=== PATIENT | female | born 1955 | race American Indian/Alaskan Native ===

== ENCOUNTER 2018-01-11 13:12 | Inpatient (IN) | payer OTHER ==
[2018-01-11] MEDS ORDERED: NACL 0.9% 1000 ML 1,000 ML IV ONE ×3 (14:17→23:45)
--- NOTE | 2018-01-11 14:38 | XRay Report ---
PORTABLE CHEST INDICATION: Syncope. COMPARISON: None similar at this institution. FINDINGS: Portable, frontal chest radiograph demonstrates normal heart size, slight aortic knob calcifications, EKG leads and osteopenic bones. Diffuse bilateral interstitial densities/infiltrates, at places nodular measuring up to 0.6 cm. Approximately 3.8 cm right suprahilar mass/lymphadenopathy suspected. Few other extrinsic artifacts also noted. CONCLUSION: Diffuse bilateral reticulonodular pulmonary infiltrates, suspicious for a right hilar/suprahilar mass with metastases, as described. Please also correlate clinically and with prior chest imaging, if available. Thank you for the opportunity to participate in this patient's care.
--- NOTE | 2018-01-11 14:41 | Emergency Department Report ---
ED General Adult HPI - General Chief complaint: Syncope Stated complaint: SHORTNESS OF BREATH Time Seen by Provider: 01/11/18 14:22 Source: patient, EMS Mode of arrival: Stretcher Limitations: No Limitations - History of Present Illness Initial comments: Patient is 62 years old female history of HIV followed at [facility]. Patient resented to the ER complaining of generalized weakness, cough or shortness of breath for the last few days. Patient also stated that she had decreased appetite. Patient denied any fever or vomiting. No diarrhea. - Related Data Allergies Allergy/AdvReac Type Severity Reaction Status Date / Time No Known Allergies Allergy Unverified 01/11/18 14:17 ED Review of Systems ROS: Stated complaint: SHORTNESS OF BREATH Other details as noted in HPI Comment: All other systems reviewed and negative Constitutional: denies: chills, fever Respiratory: cough, shortness of breath. denies: SOB with exertion, SOB at rest , wheezing Cardiovascular: palpitations. denies: chest pain, dyspnea on exertion Gastrointestinal: nausea. denies: abdominal pain, vomiting, diarrhea, constipation, hematemesis, melena, hematochezia Genitourinary: denies: urgency, dysuria, frequency, hematuria Neurological: denies: headache, weakness, numbness, paresthesias ED Past Medical Hx - Past Medical History Hx Hypertension: Yes Hx HIV: Yes - Social History Smoking Status: Never Smoker Substance Use Type: None ED Physical Exam - General Limitations: No Limitations General appearance: alert, in no apparent distress - Head Head exam: Present: atraumatic, normocephalic, normal inspection - Eye Eye exam: Present: normal appearance - ENT ENT exam: Present: normal exam, normal orophraynx, mucous membranes moist - Neck Neck exam: Present: normal inspection, full ROM. Absent: tenderness, meningismus - Respiratory Respiratory exam: Present: normal lung sounds bilaterally. Absent: respiratory distress, wheezes, rales, rhonchi, decreased breath sounds, prolonged expiratory - Cardiovascular Cardiovascular Exam: Present: tachycardia - GI/Abdominal GI/Abdominal exam: Present: soft, normal bowel sounds. Absent: distended, tenderness, guarding, rebound, rigid, organomegaly, mass, bruit, pulsatile mass - Extremities Exam Extremities exam: Present: normal inspection, full ROM, normal capillary refill - Back Exam Back exam: Present: normal inspection, full ROM. Absent: tenderness, CVA tenderness (R), CVA tenderness (L), muscle spasm, paraspinal tenderness - Neurological Exam Neurological exam: Present: alert, oriented X3, CN II-XII intact, normal gait - Skin Skin exam: Present: warm, dry, intact ED Course Vital Signs 01/11/18 14:10 Temperature 98.1 F Pulse Rate 104 H Respiratory 18 Rate Blood Pressure 99/74 O2 Sat by Pulse 97 Oximetry ED Medical Decision Making - Lab Data Result diagrams: 01/11/18 14:54 01/11/18 14:54 - Radiology Data Radiology results: report reviewed Referring Physician: ANDERSON MCALLISTER Patient Name: BRYSON BATES Date of : 1955 Sex: Female Report Date: 2018-01-11 Report Status: Finalized Findings [facility] [address] [place] [address] XRay Report Signed Patient: BRYSON BATES MR#: [id number] : 1955 Acct:[id number] Age/Sex: 62 / F ADM Date: 01/11/18 Loc: ED Attending Dr: Ordering Physician: ANDERSON MCALLISTER Date of Service: 01/11/18 Procedure(s): XR chest 1V ap Accession Number(s): [id number] cc: ANDERSON MCALLISTER Fluoro Time In Minutes: PORTABLE CHEST INDICATION: Syncope. COMPARISON: None similar at this institution. FINDINGS: Portable, frontal chest radiograph demonstrates normal heart size, slight aortic knob calcifications, EKG leads and osteopenic bones. Diffuse bilateral interstitial densities/infiltrates, at places nodular measuring up to 0.6 cm. Approximately 3.8 cm right suprahilar mass/lymphadenopathy suspected. Few other extrinsic artifacts also noted. CONCLUSION: Diffuse bilateral reticulonodular pulmonary infiltrates, suspicious for a right hilar/suprahilar mass with metastases, as described. Please also correlate clinically and with prior chest imaging, if available. Thank you for the opportunity to participate in this patient's care. Transcribed By: RS Dictated By: DAVID CHRISTIANSON MD Electronically Authenticated By: DAVID CHRISTIANSON MD Signed Date/Time: 01/11/18 1433 DD/ 1430 TD/TT: 01/11/18 1433 - Medical Decision Making I discussed the patient is Dr. Valdes, he agreed to admit the patient to her service. Critical care attestation.: If time is entered above; I have spent that time in minutes in the direct care of this critically ill patient, excluding procedure time. ED Disposition Clinical Impression: Pneumonia, HIV (human immunodeficiency virus infection) Disposition: OP ADMIT IP TO THIS HOSP Is pt being admited?: Yes Condition: Stable Instructions: Bacterial Pneumonia (ED) Referrals: PRIMARY CARE,MD [Primary Care Provider] - 3-5 Days
[2018-01-11 15:03] LABS: Bacteria,Urine 1+ /HPF (Negative); Bilirubin,Urine NEG (Negative); Blood,Urine SM (Negative); Color,Urine Red (Yellow); Mucus,Urine FEW /HPF; Protein,Urine <15 mg/dL mg/dL (Negative); Urobilinogen,Urine < 2.0 mg/dL (<2.0)
[2018-01-11] MEDS ORDERED: LEVAQUIN 500MG/100ML 500 MG/100 ML BAG IV ONE (15:12)
[2018-01-11] MEDS ORDERED: BACTRIM DS PO ONE (15:12)
[2018-01-11 15:24] LABS: INR 1.05 (0.87-1.13)
[2018-01-11 15:26] LABS: Hemoglobin 12.5 gm/dl (10.1-14.3); Mean Corpuscular HGB Conc 29 % (30-34); Mean Corpuscular Volume 80 fl (79-97); Platelet Count 191 K/mm3 (140-440); Red Blood Count 5.35 M/mm3 (3.65-5.03); Red Cell Distribution Width 17.9 % (13.2-15.2)
[2018-01-11 15:27] LABS: Mean Corpuscular Hemoglobin 23 pg (28-32)
[2018-01-11 15:31] LABS: Creatine Kinase MB 2.2 ng/mL (0.0-4.0)
[2018-01-11 15:32] LABS: Alanine Aminotransferase 9 units/L (7-56); Albumin 2.7 g/dL (3.9-5); BUN/Creatinine Ratio 24; Blood Urea Nitrogen 12 mg/dL (7-17); Calcium 9.9 mg/dL (8.4-10.2); Hemolysis Index 74
--- NOTE | 2018-01-11 15:39 | History and Physical Report ---
History of Present Illness Chief complaint: I feel weak, I been coughing, and i passed out History of present illness: 62 YO Female with HIV, HTN, Malnutrition presents to ED for evaluation. Pt states that she has experienced shortness of breath, nonproductive cough , and decreased oral intake for the past 3 days with persistent symptoms over that same time frame. Pt also acknowledges progressive weakness as well as loss on consciousness today. Pt denies fever, chills, CP, Palpitations, NVD, Trauma, BRBPR, Seizures, Vertigo, recent ill contacts, skin rash, vision changes. Pt seen and evaluated in ED and found to have Bilateral Pneumonia complicated by sepsis. Pt admitted to medical floor. Past History Past Medical History: HIV/AIDS, hypertension, other (malnutrition) Past Surgical History: No surgical history, Other (reviewed) Social history: single Medications and Allergies Allergies Allergy/AdvReac Type Severity Reaction Status Date / Time No Known Allergies Allergy Unverified 01/11/18 14:17 Home Medications Medication Instructions Recorded Confirmed Last Taken Type Aspirin [Aspirin EC] 81 mg PO DAILY 01/11/18 01/11/18 Unknown History Dolutegravir Sodium [Tivicay] 50 mg PO DAILY 01/11/18 01/11/18 Unknown History Emtricitabine/Tenofov Alafenam 1 each PO DAILY 01/11/18 01/11/18 Unknown History [Descovy 200-25 mg Tablet] Ergocalciferol [Vitamin D2] 1 cap PO QWEEK 01/11/18 01/11/18 Unknown History Folic Acid [Folvite] 1 mg PO QDAY 01/11/18 01/11/18 Unknown History Rosuvastatin Calcium [Crestor] 40 mg PO QHS 01/11/18 01/11/18 Unknown History Sulfamethoxazole/Trimethoprim 1 each PO DAILY 01/11/18 01/11/18 Unknown History [Bactrim DS TAB] amLODIPine [Norvasc] 10 mg PO DAILY 01/11/18 01/11/18 Unknown History Active Meds: Active Medications Levofloxacin/Dextrose (Levaquin 500mg/100ml) 500 mg in 100 mls @ 100 mls/hr IV ONCE ONE Stop: 01/11/18 16:11 Last Admin: 01/11/18 15:35 Dose: 100 mls/hr Review of Systems Constitutional: weight loss, no weight gain, no fever, no chills Ears, nose, mouth and throat: no ear pain, no ear discharge, no tinnitis, no decreased hearing, no nose pain Cardiovascular: shortness of breath, no chest pain, no orthopnea, no palpitations Respiratory: cough, no cough with sputum, no excessive sputum, no hemoptysis Gastrointestinal: no nausea, no vomiting, no diarrhea, no constipation Genitourinary Female: no pelvic pain, no flank pain, no menorrhagia, no dysuria , no urinary frequency, no urgency Rectal: no pain, no incontinence, no bleeding Musculoskeletal: no neck stiffness, no neck pain, no shooting arm pain, no arm numbness/tingling, no low back pain, no shooting leg pain Integumentary: no rash, no pruritis, no redness, no sores, no wounds Neurological: no paralysis, no weakness, no parathesias, no numbness, no tingling, no seizures, no syncope Psychiatric: no anxiety, no memory loss, no change in sleep habits, no sleep disturbances, no insomnia, no hypersomnia, no change in appetite Endocrine: no cold intolerance, no heat intolerance, no polyphagia, no excessive thirst, no polydipsia, no polyuria, no nocturia, no excessive sweating Hematologic/Lymphatic: no easy bruising, no easy bleeding, no lymphadenopathy, no lymphedema Allergic/Immunologic: no urticaria, no allergic rhinitis, no wheezing, no persistent infections, no anaphylaxis, no angioedema Exam - Constitutional Vitals: Temp Pulse Resp BP Pulse Ox 98.1 F 104 H 18 99/74 97 01/11/18 14:10 01/11/18 14:10 01/11/18 14:10 01/11/18 14:10 01/11/18 14:10 General appearance: Present: mild distress, cachectic - EENT Eyes: Present: PERRL ENT: hearing intact, clear oral mucosa - Neck Neck: Present: supple, normal ROM - Respiratory Respiratory effort: normal Respiratory: bilateral: diminished, rhonchi - Cardiovascular Heart Sounds: Present: S1 & S2. Absent: rub, click - Extremities Extremities: pulses symmetrical, No edema Peripheral Pulses: within normal limits - Abdominal General gastrointestinal: Present: soft, non-tender, non-distended, normal bowel sounds Female genitourinary: Present: normal - Integumentary Integumentary: Present: clear, warm, dry - Musculoskeletal Musculoskeletal: generalized weakness - Psychiatric Psychiatric: appropriate mood/affect, intact judgment & insight - Neurologic Neurologic: CNII-XII intact, moves all extremities Results - Labs CBC & Chem 7: 01/11/18 14:54 01/11/18 14:54 Labs: Abnormal lab results 01/11/18 01/11/18 Range/Units 14:54 14:54 WBC 14.2 H (4.5-11.0) K/mm3 RBC 5.35 H (3.65-5.03) M/mm3 Hct 43.0 H (30.3-42.9) % MCH 23 L (28-32) pg MCHC 29 L (30-34) % RDW 17.9 H (13.2-15.2) % Carbon Dioxide 20 L (22-30) mmol/L Creatinine 0.5 L (0.7-1.2) mg/dL Magnesium 2.60 H (1.7-2.3) mg/dL CK-MB (CK-2) Rel Index 4.3 H (0-4) Albumin 2.7 L (3.9-5) g/dL Assessment and Plan - Patient Problems (1) Sepsis Current Visit: Yes Status: Acute Qualifiers: Sepsis type: sepsis due to unspecified organism Qualified Code(s): A41.9 - Sepsis, unspecified organism Plan to address problem: IV antiboitics, IVF resuscitation, monitor uop q shift, serial lactic acid, monitor uop q shift, Chest X ray (2) Malnutrition Current Visit: Yes Status: Acute Qualifiers: Malnutrition type: protein-calorie malnutrition Protein-calorie malnutrition severity: severe Qualified Code(s): E43 - Unspecified severe protein-calorie malnutrition Plan to address problem: encourage oral intake, (3) Acidosis Current Visit: Yes Status: Acute Plan to address problem: IVF resuscitation therapy, serial bmp, repeat lactic acid level (4) HIV (human immunodeficiency virus infection) Current Visit: Yes Status: Acute Plan to address problem: continue antiretroviral therapy, continue bactrim for PCP prophylaxis, outpatient ID f/u. (5) Pneumonia Current Visit: Yes Status: Acute Qualifiers: Laterality: bilateral Plan to address problem: IV antibiotics, IV steroid therapy, Chest x ray, monitor uop q shift, blood cultures (6) DVT prophylaxis Current Visit: Yes Status: Acute Plan to address problem: scd to BLE
[2018-01-11] MEDS ORDERED: PROVENTIL IH PRN (15:40)
[2018-01-11 16:08] LABS: Basophils % (Manual) 0 % (0.0-1.8); Total Cells Counted 100
[2018-01-11 16:09] LABS: Platelet Estimate Consistent w Auto
[2018-01-11 16:10] LABS: Anisocytosis 1+; Poikilocytosis 1+
[2018-01-11] MEDS ORDERED: ROCEPHIN/NS 1 GM/50 ML 1 GM/50 ML BAG IV SCH (17:00)
[2018-01-11] MEDS ORDERED: NACL 0.9% 1000 ML IV ONE (17:37)
[2018-01-11] MEDS: cefTRIAXone 1 GM in NACL 0.9% 20 ML IV SCH (17:42)
--- NOTE | 2018-01-11 18:07 | Cat Scan Report ---
FINAL REPORT EXAM: CT HEAD/BRAIN WO CON HISTORY: syncope TECHNIQUE: Standard unenhanced CT of the head at 5.0 millimeter axial increments. PRIORS: None. FINDINGS: The ventricular system is normal in size and configuration. There is no evidence for parenchymal volume loss. There is no evidence for mass lesion, mass effect, midline shift, acute intracranial hemorrhage, or acute ischemia/ infarction. No evidence for acute skull fracture is seen. No abnormality in the overlying scalp soft tissues is seen. Visualized paranasal sinuses are clear. IMPRESSION: Negative CT of the head. No acute intracranial process noted.
[2018-01-11] MEDS: ZITHROMAX 500 MG in NACL 0.9% 250ML 250 ML IV SCH (20:24)
[2018-01-11] MEDS: TYLENOL PO PRN (20:25)
[2018-01-11] MEDS ORDERED: NACL ONE (21:35)
[2018-01-11] MEDS ORDERED: NON-FORMULARY (Rosuvastatin Calcium [Crestor] 40 MG) PO SCH (22:00)
[2018-01-11] MEDS: SODIUM CHLORIDE FLUSH SYRINGE 10 ML IV SCH (22:21)
--- NOTE | 2018-01-11 23:35 | Cat Scan Report ---
FINAL REPORT PROCEDURE: CT ANGIO CHEST TECHNIQUE: Computerized axial tomographic angiography of the chest and pulmonary arteries was performed after the IV injection of iodinated nonionic contrast. The image data was postprocessed using maximum intensity projection (MIP) and 2-dimensional multiplanar reformatted (MPR) techniques. The examination is specifically tailored to the evaluation of the pulmonary arteries per clinical request. HISTORY: Short of breath 786.09, chest pain 786.50, dypsnea COMPARISON: No prior studies are available for comparison. FINDINGS: Heart and pericardium: Normal. Thoracic aorta: There is no thoracic aortic aneurysm or dissection.. Pulmonary vasculature: Normal. No pulmonary emboli. Lymph nodes: There are enlarged lymph nodes or masses in the subcarinal mediastinal space measuring up to 5 centimeters in diameter. There are bilateral enlarged hilar lymph nodes or masses measuring up to 4.5 centimeters in the right hilum.. Lungs: There is advanced COPD. There are innumerable spiculated pulmonary nodules and masses bilaterally highly suspicious for metastatic malignancy. Largest mass is seen in the right upper lung measuring 4 centimeters in diameter. There are so seated reticular densities which could be pulmonary edema, interstitial pneumonitis or lymphangitic carcinomatosis.. Pleural space: There is no pleural effusion or pneumothorax.. Musculoskeletal structures: There are heterogeneous densities in the thoracic and lumbar spine consistent with metastatic bone disease. There are destructive changes of left rib number 2 due to bony metastasis.. Upper abdominal structures: No significant abnormality. IMPRESSION: There is metastatic pulmonary malignancy and bone disease. There is pathological mediastinal and hilar lymphadenopathy. There is no thoracic aortic aneurysm or dissection. There is no pulmonary embolism..
[2018-01-12] MEDS: TYLENOL PO PRN ×3 (00:51→19:01)
[2018-01-12] MEDS: NACL 0.9% 1000 ML 1,000 ML IV SCH ×2 (01:59→19:50)
[2018-01-12] MEDS: cefTRIAXone 1 GM in NACL 0.9% 20 ML IV SCH (09:59)
[2018-01-12] MEDS ORDERED: TIVICAY (NF) PO SCH (10:00)
[2018-01-12] MEDS: ZITHROMAX 500 MG in NACL 0.9% 250ML 250 ML IV SCH (10:00)
[2018-01-12] MEDS ORDERED: ROCEPHIN/NS 1 GM/50 ML 1 GM/50 ML BAG IV SCH (10:00)
[2018-01-12] MEDS ORDERED: NON-FORMULARY (Dolutegravir Sodium [Tivicay] 50 MG) PO SCH (10:00)
[2018-01-12] MEDS: BACTRIM DS PO SCH (10:07)
[2018-01-12] MEDS: NON-FORMULARY (Emtricitabine/Tenofov Alafenam [Descovy 200-25 Mg Tablet] 1 EACH) PO SCH (10:07)
[2018-01-12] MEDS: FOLVITE PO SCH (10:08)
[2018-01-12] MEDS: HALFPRIN EC PO SCH (10:08)
[2018-01-12] MEDS: SODIUM CHLORIDE FLUSH SYRINGE 10 ML IV SCH ×2 (10:09→21:51)
[2018-01-12] MEDS: NORVASC PO SCH (10:09)
[2018-01-12] MEDS: TIVICAY (NF) PO SCH (10:10)
--- NOTE | 2018-01-12 18:21 | Progress Note ---
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, O2 of care, ID evaluation --Sepsis; secondary to pneumonia, community-acquired Continue IV antibiotics, follow cultures, pulmonary consult --Lactic acidosis; secondary to sepsis, improved --DVT prophylaxis; Lovenox Poor prognosis Family not available we will Check with family for more information and treatment plan Closely monitor the patient and adjust management as needed Disposition; follow-up pulmonary, ID, oncology evaluation and recommendations History Interval history: 62-year-old female patient with HIV hypertension and severe malnutrition and cachexia was admitted through emergency room with syncope and cough, CT chest consistent with metastatic lung cancer involving the bones, no PE Patient seen and examined Patient looks critically, cachectic emaciated Minimally communicative, in mild distress Vital signs reviewed Hospitalist Physical - Constitutional Vitals: Temp Pulse Resp BP Pulse Ox 98.1 F 96 H 16 109/82 93 01/12/18 08:24 01/12/18 08:24 01/12/18 08:24 01/12/18 08:24 01/12/18 08:24 General appearance: Present: mild distress, cachectic, disheveled - EENT Eyes: Present: PERRL, EOM intact - Neck Neck: Present: supple, normal ROM - Respiratory Respiratory effort: labored Respiratory: bilateral: diminished, rhonchi, negative: rales, wheezing - Cardiovascular Rhythm: regular Heart Sounds: Present: S1 & S2 - Extremities Extremities: no ischemia, No edema - Abdominal General gastrointestinal: soft, non-tender, non-distended, normal bowel sounds - Integumentary Integumentary: Present: clear, warm - Psychiatric Psychiatric: appropriate mood/affect, agitated, other (minimally communicate) - Neurologic Neurologic: moves all extremities Results - Labs CBC & Chem 7: 01/11/18 14:54 01/11/18 14:54 Labs: Laboratory Last Values WBC 14.2 K/mm3 (4.5-11.0) H 01/11/18 14:54 RBC 5.35 M/mm3 (3.65-5.03) H 01/11/18 14:54 Hgb 12.5 gm/dl (10.1-14.3) 01/11/18 14:54 Hct 43.0 % (30.3-42.9) H 01/11/18 14:54 MCV 80 fl (79-97) 01/11/18 14:54 MCH 23 pg (28-32) L 01/11/18 14:54 MCHC 29 % (30-34) L 01/11/18 14:54 RDW 17.9 % (13.2-15.2) H 01/11/18 14:54 Plt Count 191 K/mm3 (140-440) 01/11/18 14:54 Lymph % (Auto) [employer] 01/11/18 14:54 [place] % (Auto) [employer] 01/11/18 14:54 Eos % (Auto) [employer] 01/11/18 14:54 Baso % (Auto) [employer] 01/11/18 14:54 Lymph # [employer] 01/11/18 14:54 [place] # [employer] 01/11/18 14:54 Eos # [employer] 01/11/18 14:54 Baso # [employer] 01/11/18 14:54 Add Manual Diff Complete 01/11/18 14:54 Total Counted 100 01/11/18 14:54 Seg Neutrophils % [employer] 01/11/18 14:54 Seg Neuts % (Manual) 74.0 % (40.0-70.0) H 01/11/18 14:54 Band Neutrophils % 0 % 01/11/18 14:54 Lymphocytes % (Manual) 8.0 % (13.4-35.0) L 01/11/18 14:54 Reactive Lymphs % (Man) 0 % 01/11/18 14:54 Monocytes % (Manual) 5.0 % (0.0-7.3) 01/11/18 14:54 Eosinophils % (Manual) 13.0 % (0.0-4.3) H 01/11/18 14:54 Basophils % (Manual) 0 % (0.0-1.8) 01/11/18 14:54 Metamyelocytes % 0 % 01/11/18 14:54 Myelocytes % 0 % 01/11/18 14:54 Promyelocytes % 0 % 01/11/18 14:54 Blast Cells % 0 % 01/11/18 14:54 Nucleated RBC % Not Reportable 01/11/18 14:54 Seg Neutrophils # [employer] 01/11/18 14:54 Seg Neutrophils # Man 10.5 K/mm3 (1.8-7.7) H 01/11/18 14:54 Band Neutrophils # 0.0 K/mm3 01/11/18 14:54 Lymphocytes # (Manual) 1.1 K/mm3 (1.2-5.4) L 01/11/18 14:54 Abs React Lymphs (Man) 0.0 K/mm3 01/11/18 14:54 Monocytes # (Manual) 0.7 K/mm3 (0.0-0.8) 01/11/18 14:54 Eosinophils # (Manual) 1.8 K/mm3 (0.0-0.4) H 01/11/18 14:54 Basophils # (Manual) 0.0 K/mm3 (0.0-0.1) 01/11/18 14:54 Metamyelocytes # 0.0 K/mm3 01/11/18 14:54 Myelocytes # 0.0 K/mm3 01/11/18 14:54 Promyelocytes # 0.0 K/mm3 01/11/18 14:54 Blast Cells # 0.0 K/mm3 01/11/18 14:54 WBC Morphology Not Reportable 01/11/18 14:54 Hypersegmented Neuts Not Reportable 01/11/18 14:54 Hyposegmented Neuts Not Reportable 01/11/18 14:54 Hypogranular Neuts Not Reportable 01/11/18 14:54 Smudge Cells Not Reportable 01/11/18 14:54 Toxic Granulation Not Reportable 01/11/18 14:54 Toxic Vacuolation Not Reportable 01/11/18 14:54 Dohle Bodies Not Reportable 01/11/18 14:54 Pelger-Huet Anomaly Not Reportable 01/11/18 14:54 Afshin Rods Not Reportable 01/11/18 14:54 Platelet Estimate Consistent w auto 01/11/18 14:54 Clumped Platelets Not Reportable 01/11/18 14:54 Plt Clumps, EDTA Not Reportable 01/11/18 14:54 Large Platelets Not Reportable 01/11/18 14:54 Giant Platelets Not Reportable 01/11/18 14:54 Platelet Satelliting Not Reportable 01/11/18 14:54 Plt Morphology Comment Not Reportable 01/11/18 14:54 RBC Morphology Not Reportable 01/11/18 14:54 Dimorphic RBCs Not Reportable 01/11/18 14:54 Polychromasia Not Reportable 01/11/18 14:54 Hypochromasia Not Reportable 01/11/18 14:54 Poikilocytosis 1+ 01/11/18 14:54 Anisocytosis 1+ 01/11/18 14:54 Microcytosis Not Reportable 01/11/18 14:54 Macrocytosis Not Reportable 01/11/18 14:54 Spherocytes Not Reportable 01/11/18 14:54 Pappenheimer Bodies Not Reportable 01/11/18 14:54 Sickle Cells Not Reportable 01/11/18 14:54 Target Cells Not Reportable 01/11/18 14:54 Tear Drop Cells Not Reportable 01/11/18 14:54 Ovalocytes Not Reportable 01/11/18 14:54 Helmet Cells Not Reportable 01/11/18 14:54 [place] Bodies Not Reportable 01/11/18 14:54 [place] Rings Not Reportable 01/11/18 14:54 Garber Cells Not Reportable 01/11/18 14:54 Bite Cells Not Reportable 01/11/18 14:54 Crenated Cell Not Reportable 01/11/18 14:54 Elliptocytes Not Reportable 01/11/18 14:54 Acanthocytes (Spur) Not Reportable 01/11/18 14:54 Rouleaux Not Reportable 01/11/18 14:54 Hemoglobin C Crystals Not Reportable 01/11/18 14:54 Schistocytes Not Reportable 01/11/18 14:54 Malaria parasites Not Reportable 01/11/18 14:54 Edil Bodies Not Reportable 01/11/18 14:54 Hem Pathologist Commnt No 01/11/18 14:54 PT 14.2 Sec. (12.2-14.9) 01/11/18 14:54 INR 1.05 (0.87-1.13) 01/11/18 14:54 D-Dimer > 39965 ng/mlDDU (0-234) H 01/11/18 14:54 Sodium 141 mmol/L (137-145) 01/11/18 14:54 Potassium 4.3 mmol/L (3.6-5.0) 01/11/18 14:54 Chloride 104.8 mmol/L (98-107) 01/11/18 14:54 Carbon Dioxide 20 mmol/L (22-30) L 01/11/18 14:54 Anion Gap 21 mmol/L 01/11/18 14:54 BUN 12 mg/dL (7-17) 01/11/18 14:54 Creatinine 0.5 mg/dL (0.7-1.2) L 01/11/18 14:54 Estimated GFR > 60 ml/min 01/11/18 14:54 BUN/Creatinine Ratio 24 % 01/11/18 14:54 Glucose 75 mg/dL (65-100) 01/11/18 14:54 Lactic Acid 1.50 mmol/L (0.7-2.0) 01/12/18 03:20 Calcium 9.9 mg/dL (8.4-10.2) 01/11/18 14:54 Magnesium 2.60 mg/dL (1.7-2.3) H 01/11/18 14:54 Total Bilirubin 0.30 mg/dL (0.1-1.2) 01/11/18 14:54 AST 19 units/L (5-40) 01/11/18 14:54 ALT 9 units/L (7-56) 01/11/18 14:54 Alkaline Phosphatase 93 units/L (35-129) 01/11/18 14:54 Total Creatine Kinase 51 units/L (30-135) 01/11/18 14:54 CK-MB (CK-2) 2.2 ng/mL (0.0-4.0) 01/11/18 14:54 CK-MB (CK-2) Rel Index 4.3 (0-4) H 01/11/18 14:54 Troponin T 0.021 ng/mL (0.00-0.029) 01/11/18 14:54 NT-Pro-B Natriuret Pep 775.8 pg/mL (0-900) 01/11/18 14:55 Total Protein 7.9 g/dL (6.3-8.2) 01/11/18 14:54 Albumin 2.7 g/dL (3.9-5) L 01/11/18 14:54 Albumin/Globulin Ratio 0.5 % 01/11/18 14:54 Urine Color Red (Yellow) 01/11/18 13:50 Urine Turbidity Clear (Clear) 01/11/18 13:50 Urine pH 6.0 (5.0-7.0) 01/11/18 13:50 Ur Specific [place] 1.003 (1.003-1.030) 01/11/18 13:50 Urine Protein <15 mg/dl mg/dL (Negative) 01/11/18 13:50 Urine Glucose (UA) Neg mg/dL (Negative) 01/11/18 13:50 Urine Ketones Neg mg/dL (Negative) 01/11/18 13:50 Urine Blood Sm (Negative) 01/11/18 13:50 Urine Nitrite Neg (Negative) 01/11/18 13:50 Urine Bilirubin Neg (Negative) 01/11/18 13:50 Urine Urobilinogen < 2.0 mg/dL (<2.0) 01/11/18 13:50 Ur Leukocyte Esterase Sm (Negative) 01/11/18 13:50 Urine WBC (Auto) 3.0 /HPF (0.0-6.0) 01/11/18 13:50 Urine RBC (Auto) 1.0 /HPF (0.0-6.0) 01/11/18 13:50 U Epithel Cells (Auto) 1.0 /HPF (0-13.0) 01/11/18 13:50 Urine Bacteria (Auto) 1+ /HPF (Negative) 01/11/18 13:50 Urine Mucus Few /HPF 01/11/18 13:50
--- NOTE | 2018-01-12 19:49 | Consultation ---
History of Present Illness Consult date: 01/12/18 Requesting physician: PASHA FROST Reason for consult: abnormal CXR/CT History of present illness: Admitting H and P 62 YO Female with HIV, HTN, Malnutrition presents to ED for evaluation. Pt states that she has experienced shortness of breath, nonproductive cough , and decreased oral intake for the past 3 days with persistent symptoms over that same time frame. Pt also acknowledges progressive weakness as well as loss on consciousness today. Pt denies fever, chills, CP, Palpitations, NVD, Trauma, BRBPR, Seizures, Vertigo, recent ill contacts, skin rash, vision changes. Pt seen and evaluated in ED and found to have Bilateral Pneumonia complicated by sepsis. 62 year old woman with HIV presented with dry cough, weight loss and syncopal episode Review of the CXR shows spiculated nodular densities. CT chest, images reviewed, multiple parenchymal densities (some cavitation )in the lungs She states she smokes cigarettes, does crack and lives on and off on the streets. Audible wheezing. Patient was seen and examined. Vitals, labs, medications, chart and imaging were reviewed. Past History Past Medical History: HIV/AIDS, hypertension, other (malnutrition) Past Surgical History: No surgical history, Other (reviewed) Social history: single Medications and Allergies Allergies Allergy/AdvReac Type Severity Reaction Status Date / Time No Known Allergies Allergy Unverified 01/11/18 14:17 Home Medications Medication Instructions Recorded Confirmed Last Taken Type Aspirin [Aspirin EC] 81 mg PO DAILY 01/11/18 01/11/18 Unknown History Dolutegravir Sodium [Tivicay] 50 mg PO DAILY 01/11/18 01/11/18 Unknown History Emtricitabine/Tenofov Alafenam 1 each PO DAILY 01/11/18 01/11/18 Unknown History [Descovy 200-25 mg Tablet] Ergocalciferol [Vitamin D2] 1 cap PO QWEEK 01/11/18 01/11/18 Unknown History Folic Acid [Folvite] 1 mg PO QDAY 01/11/18 01/11/18 Unknown History Rosuvastatin Calcium [Crestor] 40 mg PO QHS 01/11/18 01/11/18 Unknown History Sulfamethoxazole/Trimethoprim 1 each PO DAILY 01/11/18 01/11/18 Unknown History [Bactrim DS TAB] amLODIPine [Norvasc] 10 mg PO DAILY 01/11/18 01/11/18 Unknown History Active Meds: Active Medications Acetaminophen (Tylenol) 650 mg PO Q4H PRN PRN Reason: Pain MILD(1-3)/Fever >100.5/EVE Last Admin: 01/12/18 19:01 Dose: 650 mg Albuterol (Proventil) 2.5 mg IH Q4HRT PRN PRN Reason: Shortness Of Breath Amlodipine Besylate (Norvasc) 10 mg PO DAILY [facility] Last Admin: 01/12/18 10:09 Dose: 10 mg Aspirin (Halfprin Ec) 81 mg PO DAILY [facility] Last Admin: 01/12/18 10:08 Dose: 81 mg Atorvastatin Calcium (Lipitor) 40 mg PO QHS [facility] Last Admin: 01/11/18 22:21 Dose: 40 mg Azithromycin (Zithromax) 500 mg PO QDAY [facility] Ergocalciferol (Vitamin D2) 50,000 unit PO Mo [facility] Folic Acid (Folvite) 1 mg PO QDAY [facility] Last Admin: 01/12/18 10:08 Dose: 1 mg Ceftriaxone Sodium 1 gm/ (Sodium Chloride) 20 mls @ 2 mls/min IV Q24HR [facility] Last Admin: 01/12/18 09:59 Dose: 2 mls/min Sodium Chloride (Nacl 0.9% 1000 Ml) 1,000 mls @ 125 mls/hr IV DIRECT [facility] Last Infusion: 01/12/18 10:01 Dose: Infused Methylprednisolone Sodium Succinate (Solu-Medrol) 20 mg IV Q24HR [facility] Last Admin: 01/12/18 10:09 Dose: 20 mg Miscellaneous Medication (Emtricitabine/Tenofov Alafenam [Descovy 200-25 Mg Tablet]) 1 each PO DAILY [facility] Last Admin: 01/12/18 10:07 Dose: 1 each Ondansetron HCl (Zofran) 4 mg IV Q8H PRN PRN Reason: Nausea And Vomiting Sodium Chloride (Sodium Chloride Flush Syringe 10 Ml) 10 ml IV BID [facility] Last Admin: 01/12/18 10:09 Dose: 10 ml Sodium Chloride (Sodium Chloride Flush Syringe 10 Ml) 10 ml IV PRN PRN PRN Reason: LINE FLUSH Trimethoprim/Sulfamethoxazole (Bactrim Ds) 1 each PO DAILY [facility] Last Admin: 01/12/18 10:07 Dose: 1 each Physical Examination Vital signs: Vital Signs Pulse Resp BP 104 H 28 H 105/74 01/11/18 14:07 01/11/18 14:07 01/11/18 14:07 General appearance: Present: mild distress, cachectic, disheveled - EENT Eyes: Present: PERRL, EOM intact - Neck Neck: Present: supple, normal ROM Multiple supraclavicular/cervical lymphadenopathy - Respiratory Respiratory effort: labored Respiratory: bilateral: diminished, rhonchi, has expiratory wheezing - Cardiovascular Rhythm: regular Heart Sounds: Present: S1 & S2 - Extremities Extremities: no ischemia, No edema - Abdominal General gastrointestinal: soft, non-tender, non-distended, normal bowel sounds - Integumentary Integumentary: Present: clear, warm - Psychiatric Psychiatric: appropriate mood/affect, agitated, other (minimally communicate) - Neurologic Neurologic: moves all extremities Results - Laboratory Findings CBC and BMP: 01/11/18 14:54 01/11/18 14:54 PT/INR, D-dimer PT 14.2 Sec. (12.2-14.9) 01/11/18 14:54 INR 1.05 (0.87-1.13) 01/11/18 14:54 D-Dimer > 66057 ng/mlDDU (0-234) H 01/11/18 14:54 Abnormal lab findings: Abnormal Labs 01/11/18 01/11/18 01/11/18 14:54 14:54 14:54 WBC 14.2 H RBC 5.35 H Hct 43.0 H MCH 23 L MCHC 29 L RDW 17.9 H Seg Neuts % (Manual) 74.0 H Lymphocytes % (Manual) 8.0 L Eosinophils % (Manual) 13.0 H Seg Neutrophils # Man 10.5 H Lymphocytes # (Manual) 1.1 L Eosinophils # (Manual) 1.8 H D-Dimer > 29934 H Carbon Dioxide 20 L Creatinine 0.5 L Lactic Acid Magnesium 2.60 H CK-MB (CK-2) Rel Index 4.3 H Albumin 2.7 L 01/11/18 01/11/18 01/11/18 15:19 20:49 21:42 WBC RBC Hct MCH MCHC RDW Seg Neuts % (Manual) Lymphocytes % (Manual) Eosinophils % (Manual) Seg Neutrophils # Man Lymphocytes # (Manual) Eosinophils # (Manual) D-Dimer Carbon Dioxide Creatinine Lactic Acid 3.20 H* 3.70 H* 4.00 H* Magnesium CK-MB (CK-2) Rel Index Albumin Assessment and Plan Multiple pulmonary massess suspicious for metastatic malignant disease HIV 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
[2018-01-12] MEDS: DUONEB *Not for PRN Use IH SCH (22:11)
[2018-01-13] MEDS: DUONEB *Not for PRN Use IH SCH ×4 (03:28→19:41)
[2018-01-13] MEDS: SODIUM CHLORIDE FLUSH SYRINGE 10 ML IV PRN ×2 (03:49→06:17)
[2018-01-13] MEDS: ZOFRAN IV PRN (03:49)
[2018-01-13] MEDS: NACL 0.9% 1000 ML 1,000 ML IV SCH ×2 (03:54→11:45)
--- NOTE | 2018-01-13 08:08 | Consultation ---
History of Present Illness - Reason for Consult Consult date: 01/13/18 HIV/AIDS Requesting physician: PASHA FROST - History of Present Illness HPI: 62 yo F PMH HIV/AIDS, diagnosed in December 2017 at [facility], on HAART ( Tivicay and descovy), unknown CD4 and HIV-VL, HTN, malnutrition, tobacco and crack/cocaine use, lives off/on streets, who presented to the ER on 01/10/18 c/o shortness of breath, nonproductive cough, decreased oral intake, weight loss, progressive weakness, as well as syncope with loss of consciousness the day of presentation to ER. History is obtained from EMR and d/w pt who is a poor historian. She denies fever, chills, CP, N/V/D, dysuria, skin lesions. In the ER temperature 98.1, pulse 104, respiratory rate 20, saturation 97%, blood pressure 105/74. White blood cell count was 14.2, H&H 12.5 and 43.0, platelets 191. BUN and creatinine 12 and 0.5. Lactic acid 3.2. Urinalysis was negative. Head CT was negative for acute findings. Chest x-ray showed diffuse bilateral reticulonodular pulmonary infiltrates, suspicious for a right hilar and suprahilar mass with metastases. CT of the chest showed pulmonary malignancy with bone disease and pathological mediastinal and hilar lymphadenopathy. Patient was started on azithromycin, ceftriaxone and Bactrim on 01/11/18. She also received a dose of Levofloxacin on 01/11/18. She is on Solu- Medrol since 01/11/18. Infectious diseases service is consulted for further antibiotic management. Microbiology: Blood cultures: 01/11 NGTD Current Antimicrobials: Ceftriaxone 01/11- Azithromycin 01/11- Bactrim 01/11- HAART: Descovy and Tivicay Previous Antimicrobials: Levaquin x1 01/11 Other meds: Solumedrol 01/11- Past History Past Medical History: HIV/AIDS, hypertension, other (malnutrition) Past Surgical History: No surgical history, Other (reviewed) Social history: single Medications and Allergies Allergies Allergy/AdvReac Type Severity Reaction Status Date / Time No Known Allergies Allergy Unverified 01/11/18 14:17 Home Medications Medication Instructions Recorded Confirmed Last Taken Type Aspirin [Aspirin EC] 81 mg PO DAILY 01/11/18 01/11/18 Unknown History Dolutegravir Sodium [Tivicay] 50 mg PO DAILY 01/11/18 01/11/18 Unknown History Emtricitabine/Tenofov Alafenam 1 each PO DAILY 01/11/18 01/11/18 Unknown History [Descovy 200-25 mg Tablet] Ergocalciferol [Vitamin D2] 1 cap PO QWEEK 01/11/18 01/11/18 Unknown History Folic Acid [Folvite] 1 mg PO QDAY 01/11/18 01/11/18 Unknown History Rosuvastatin Calcium [Crestor] 40 mg PO QHS 01/11/18 01/11/18 Unknown History Sulfamethoxazole/Trimethoprim 1 each PO DAILY 01/11/18 01/11/18 Unknown History [Bactrim DS TAB] amLODIPine [Norvasc] 10 mg PO DAILY 01/11/18 01/11/18 Unknown History Active Meds: Active Medications Acetaminophen (Tylenol) 650 mg PO Q4H PRN PRN Reason: Pain MILD(1-3)/Fever >100.5/VEE Last Admin: 01/12/18 19:01 Dose: 650 mg Albuterol (Proventil) 2.5 mg IH Q4HRT PRN PRN Reason: Shortness Of Breath Albuterol/Ipratropium (Duoneb *Not For Prn Use*) 1 ampul IH Q6HRT [facility] Last Admin: 01/13/18 03:28 Dose: 1 ampul Amlodipine Besylate (Norvasc) 10 mg PO DAILY [facility] Last Admin: 01/12/18 10:09 Dose: 10 mg Aspirin (Halfprin Ec) 81 mg PO DAILY [facility] Last Admin: 01/12/18 10:08 Dose: 81 mg Atorvastatin Calcium (Lipitor) 40 mg PO QHS [facility] Last Admin: 01/12/18 21:49 Dose: 40 mg Azithromycin (Zithromax) 500 mg PO QDAY [facility] Ergocalciferol (Vitamin D2) 50,000 unit PO Mo [facility] Folic Acid (Folvite) 1 mg PO QDAY [facility] Last Admin: 01/12/18 10:08 Dose: 1 mg Ceftriaxone Sodium 1 gm/ (Sodium Chloride) 20 mls @ 2 mls/min IV Q24HR [facility] Last Admin: 01/12/18 09:59 Dose: 2 mls/min Sodium Chloride (Nacl 0.9% 1000 Ml) 1,000 mls @ 125 mls/hr IV DIRECT [facility] Last Admin: 01/13/18 03:54 Dose: 125 mls/hr Methylprednisolone Sodium Succinate (Solu-Medrol) 40 mg IV Q8HR [facility] Last Admin: 01/13/18 06:17 Dose: 40 mg Miscellaneous Medication (Emtricitabine/Tenofov Alafenam [Descovy 200-25 Mg Tablet]) 1 each PO DAILY [facility] Last Admin: 01/12/18 10:07 Dose: 1 each Ondansetron HCl (Zofran) 4 mg IV Q8H PRN PRN Reason: Nausea And Vomiting Last Admin: 01/13/18 03:49 Dose: 4 mg Sodium Chloride (Sodium Chloride Flush Syringe 10 Ml) 10 ml IV BID [facility] Last Admin: 01/12/18 21:51 Dose: 10 ml Sodium Chloride (Sodium Chloride Flush Syringe 10 Ml) 10 ml IV PRN PRN PRN Reason: LINE FLUSH Last Admin: 01/13/18 06:17 Dose: 10 ml Trimethoprim/Sulfamethoxazole (Bactrim Ds) 1 each PO DAILY [facility] Last Admin: 01/12/18 10:07 Dose: 1 each Review of Systems Constitutional: other (As per HPI.) Physical Examination - Physical Exam Narrative exam: General appearance: Alert in NAD, conversant, cachectic. Eyes: anicteric sclerae, moist conjunctivae; PERRLA, EOMI. HENT: Atraumatic; oropharynx clear, with moist mucous membranes and no mucosal ulcerations/no oral thrush; normal hard and soft palate. Normal external ears. Neck: Trachea midline; supple, no thyromegaly. Lungs: CTA, with normal respiratory effort and no intercostal retractions CV: S1,S2. RRR. Abdomen: +BS. Soft. NT/ND. Extremities: No c/c/e. Skin: Normal temperature, turgor and texture; no rash, ulcers. Lymph nodes: palpable LN, cervical, axillary, abdomen, inguinal. Psych: Appropriate affect, alert and oriented to person, place and time. Neuro: alert and oriented x 3. Grossly non-focal Lines: No CVL / PICC - Constitutional Vitals: Vital Signs Temp Pulse Resp BP Pulse Ox 98.0 F 108 H 32 H 161/95 98 01/13/18 03:41 01/13/18 03:41 01/13/18 03:41 01/13/18 03:41 01/13/18 03:41 Temperature -Last 24 Hours Temperature 98.0 F Temperature 98.7 F Temperature 97.8 F Temperature 98.3 F Temperature 98.1 F Results - Labs CBC & Chem 7: 01/11/18 14:54 01/11/18 14:54 Assessment and Plan Assessment: 1) SIRS: Present on admission, manifested by tachycardia, leukocytosis, increased lactate. 2) Multiple pulmonary masses suspicious for metastatic malignant disease. 3) Recent diagonosis of HIV/AIDS at [facility]. On Descovy and Tivicay and OI prophylaxis with bactrim. 4) Cachexia/Severe protein calorie malnutrition. 5) Generalized lymphadenopathy - due to HIV +/- malignancy. 6) Probable COPD 7) Syncope 8) Polysubstance abuse: crack/cocaine, tobacco. Recommendations: -f/u blood cx. -Check CD4 count and HIV-VL. -Surgery consulted for LN biopsy. -Continue HAART. -Check Legionella ag, pneumococcal ag and Histoplasma urinary antigens, Quantiferon, cryptococcal ag, aspergillus ag. -Will f/u CT A/P. -Gets records from [facility]. -d/w pt, RN, oncology attending. Thank you for your consultation, will follow up with you. Cami Bobo MD Infectious Diseases Specialist [facility] ([facility] [phone]
--- NOTE | 2018-01-13 09:23 | Hem/Onc Consultation ---
History of Present Illness - Reason for Consult Consult date: 01/13/18 - History of Present Illness dictated needs bx- sq nodules can be biopsied suggest surgical eval d/w dr earl Past History Past Medical History: HIV/AIDS, hypertension, other (malnutrition) Past Surgical History: No surgical history, Other (reviewed) Social history: single Medications and Allergies Allergies Allergy/AdvReac Type Severity Reaction Status Date / Time No Known Allergies Allergy Unverified 01/11/18 14:17 Home Medications Medication Instructions Recorded Confirmed Last Taken Type Aspirin [Aspirin EC] 81 mg PO DAILY 01/11/18 01/11/18 Unknown History Dolutegravir Sodium [Tivicay] 50 mg PO DAILY 01/11/18 01/11/18 Unknown History Emtricitabine/Tenofov Alafenam 1 each PO DAILY 01/11/18 01/11/18 Unknown History [Descovy 200-25 mg Tablet] Ergocalciferol [Vitamin D2] 1 cap PO QWEEK 01/11/18 01/11/18 Unknown History Folic Acid [Folvite] 1 mg PO QDAY 01/11/18 01/11/18 Unknown History Rosuvastatin Calcium [Crestor] 40 mg PO QHS 01/11/18 01/11/18 Unknown History Sulfamethoxazole/Trimethoprim 1 each PO DAILY 01/11/18 01/11/18 Unknown History [Bactrim DS TAB] amLODIPine [Norvasc] 10 mg PO DAILY 01/11/18 01/11/18 Unknown History Active Meds: Active Medications Acetaminophen (Tylenol) 650 mg PO Q4H PRN PRN Reason: Pain MILD(1-3)/Fever >100.5/VEE Last Admin: 01/12/18 19:01 Dose: 650 mg Albuterol (Proventil) 2.5 mg IH Q4HRT PRN PRN Reason: Shortness Of Breath Albuterol/Ipratropium (Duoneb *Not For Prn Use*) 1 ampul IH Q6HRT [facility] Last Admin: 01/13/18 08:28 Dose: 1 ampul Amlodipine Besylate (Norvasc) 10 mg PO DAILY [facility] Last Admin: 01/12/18 10:09 Dose: 10 mg Aspirin (Halfprin Ec) 81 mg PO DAILY [facility] Last Admin: 01/12/18 10:08 Dose: 81 mg Atorvastatin Calcium (Lipitor) 40 mg PO QHS [facility] Last Admin: 01/12/18 21:49 Dose: 40 mg Azithromycin (Zithromax) 500 mg PO QDAY [facility] Ergocalciferol (Vitamin D2) 50,000 unit PO Mo [facility] Folic Acid (Folvite) 1 mg PO QDAY [facility] Last Admin: 01/12/18 10:08 Dose: 1 mg Ceftriaxone Sodium 1 gm/ (Sodium Chloride) 20 mls @ 2 mls/min IV Q24HR [facility] Last Admin: 01/12/18 09:59 Dose: 2 mls/min Sodium Chloride (Nacl 0.9% 1000 Ml) 1,000 mls @ 125 mls/hr IV DIRECT [facility] Last Admin: 01/13/18 03:54 Dose: 125 mls/hr Methylprednisolone Sodium Succinate (Solu-Medrol) 40 mg IV Q8HR [facility] Last Admin: 01/13/18 06:17 Dose: 40 mg Miscellaneous Medication (Emtricitabine/Tenofov Alafenam [Descovy 200-25 Mg Tablet]) 1 each PO DAILY [facility] Last Admin: 01/12/18 10:07 Dose: 1 each Ondansetron HCl (Zofran) 4 mg IV Q8H PRN PRN Reason: Nausea And Vomiting Last Admin: 01/13/18 03:49 Dose: 4 mg Sodium Chloride (Sodium Chloride Flush Syringe 10 Ml) 10 ml IV BID [facility] Last Admin: 01/12/18 21:51 Dose: 10 ml Sodium Chloride (Sodium Chloride Flush Syringe 10 Ml) 10 ml IV PRN PRN PRN Reason: LINE FLUSH Last Admin: 01/13/18 06:17 Dose: 10 ml Trimethoprim/Sulfamethoxazole (Bactrim Ds) 1 each PO DAILY [facility] Last Admin: 01/12/18 10:07 Dose: 1 each Exam - Constitutional Vitals: Last Vital Signs Temp 98.0 F 01/13/18 03:41 Pulse 101 H 01/13/18 08:36 Resp 18 01/13/18 08:36 BP 161/95 01/13/18 03:41 Pulse Ox 99 01/13/18 08:30
[2018-01-13] MEDS: HALFPRIN EC PO SCH (09:45)
[2018-01-13] MEDS: BACTRIM DS PO SCH (09:45)
[2018-01-13] MEDS: FOLVITE PO SCH (09:45)
[2018-01-13] MEDS: TYLENOL PO PRN (09:45)
[2018-01-13] MEDS: NON-FORMULARY (Emtricitabine/Tenofov Alafenam [Descovy 200-25 Mg Tablet] 1 EACH) PO SCH (09:46)
[2018-01-13] MEDS: TIVICAY (NF) PO SCH (09:46)
[2018-01-13] MEDS: ZITHROMAX PO SCH (09:46)
[2018-01-13] MEDS: NORVASC PO SCH (09:46)
[2018-01-13] MEDS: cefTRIAXone 1 GM in NACL 0.9% 20 ML IV SCH (09:47)
--- NOTE | 2018-01-13 09:48 | Event Note ---
Date: 01/13/18 Consult for possible lung biopsy. Patient has numerous spiculated lesions within both lungs as well as central masses. Additionally, not commented upon, but demonstrated on the CT of the chest are numerous metastatic lesions within the liver. She also has diffuse metastatic lesions to her spine. Given the central aspect of her disease within her lungs, she would benefit from bronchoscopy and brush biopsy. Additionally, the patient would likely benefit from biopsy of her hepatic lesions. A CT scan of the abdomen and pelvis will be ordered to more fully image the liver and the remaining abdomen and pelvis.
[2018-01-13] MEDS: SODIUM CHLORIDE FLUSH SYRINGE 10 ML IV SCH (09:50)
--- NOTE | 2018-01-13 10:12 | Consultation ---
REFERRING PHYSICIAN: Isaiah Becerra MD REASON FOR CONSULTATION: Pulmonary nodules. HISTORY OF PRESENT ILLNESS: The patient is a 62-year-old female, who was recently diagnosed with HIV. She also has history of hypertension, malnutrition. She has had decreased oral intake for 3 days with shortness of breath, nonproductive cough. She presented to the Emergency Room and on her CT chest she was found to have evidence of mediastinal adenopathy, bilateral pulmonary nodules. There was also evidence of heterogeneous densities in the thoracic and lumbar spine suggestive of metastatic disease. The patient was to get CT guided lung biopsy, but because of the area close to the heart that has been cancelled. PAST MEDICAL HISTORY: Positive for HIV/AIDS. She does not know the details, but has not taken any medication. This just happened recently in the last month or so. SOCIAL HISTORY: She also has history of cocaine abuse and cigarette abuse. She denies any alcohol. She had significant weight loss. She has also noticed subcutaneous nodules all over her chest. Timing of that she is not able to tell, but she said these are all recent. PHYSICAL EXAMINATION: GENERAL: The patient is awake and oriented. HEENT: Reveals adenopathy in the axillary and neck area, also subcutaneous nodules all over her body. CHEST: Clear. CARDIOVASCULAR: Regular rate and rhythm. ABDOMEN: Scaphoid, nontender. EXTREMITIES: No clubbing, cyanosis, or edema. LABORATORY WORK: Hemoglobin 12.5, white count 14.2, platelets 191,000. Her albumin 2.7. Her alkaline phosphatase , magnesium 2.6. Lactic acid 4, but it has come down to 1.5, creatinine 0.5. ASSESSMENT: 1. Recent diagnosis of HIV/AIDS. 2. Pulmonary nodules and mediastinal adenopathy along with bony mets, highly suggestive of malignancy along with multiple subcutaneous nodules. 3. Cachexia. RECOMMENDATION AND PLAN: I have discussed with hospitalist. I have suggested surgical evaluation to get one of these nodules biopsied. If the nodules are unremarkable we will try to go after the lung nodules, which currently seem to be not amenable to biopsy at least as per the radiologist recommendation. I will follow with you. Case discussed with Dr. Becerra, who will get surgery evaluation. [facility]# [id number] S/NTS
--- NOTE | 2018-01-13 10:38 | Progress Note ---
Assessment and Plan Multiple pulmonary masses suspicious for metastatic malignant disease Mediastinal Adenopathy HIV +ve AECOPD (radiographic COPD also) Cervical lymphadenopathy Cachexia/Severe protein calorie malnutrition Lactic acidosis, possibly secondary to tumor Syncope Cocaine abuse Nicotine dependence/Tobacco abuse disorder - Isolation with airborne precautions as clinical and CT picture may be AFB infection in this HIV +ve patient with cachexia - IR for CT guided biopsy of the right upper lung mass - continue supplemental oxygen as needed - continue VTE prophylaxis - continue bronchodilators - supplemental oxygen to keep O2 Sats > 90% - quick steroid taper in case of infectious etiology over malignancy - Substance abuse counselling done - Surgery consult for lymph node exicional biopsy - Nicotine withdrawal precautions - Agree with Oncology consultation - CASE DISCUSSED WITH id ...RE-EVALUATE IN AM & PRN ...35' Subjective Date of service: 01/13/18 Principal diagnosis: Abnormal CT Chest; Lung Masses; HIV positive Interval history: Patient is seen today for: Abnormal CT Chest; Lung Masses; HIV positive Seen and examined at bedside; 24hour events reviewed; nursing and respiratory care staff consulted; no adverse overnight events reported to me; resting peacefully in bed; still SOB; states that she has been exposed to someone with TB but never had a positive TB test and last tested at [facility] recently; no hemoptysis Objective Vital Signs - 12hr 01/12/18 01/13/18 01/13/18 23:12 03:25 03:41 Temperature 98.7 F 98.0 F Pulse Rate 106 H 108 H Pulse Rate [ 105 H Bilateral Throughout] Respiratory 28 H 32 H Rate Respiratory 18 Rate [Bilateral Throughout] Blood Pressure 132/88 161/95 Blood Pressure [Left] O2 Sat by Pulse 96 98 Oximetry 01/13/18 01/13/18 01/13/18 07:28 08:00 08:21 Temperature 98.3 F Pulse Rate 97 H 97 H Pulse Rate [ 98 H Bilateral Throughout] Respiratory 18 Rate Respiratory 18 Rate [Bilateral Throughout] Blood Pressure Blood Pressure 127/86 [Left] O2 Sat by Pulse 98 Oximetry 01/13/18 01/13/18 01/13/18 08:30 08:36 10:00 Temperature Pulse Rate Pulse Rate [ 101 H Bilateral Throughout] Respiratory 26 H Rate Respiratory 18 Rate [Bilateral Throughout] Blood Pressure Blood Pressure [Left] O2 Sat by Pulse 99 96 Oximetry Constitutional: no acute distress, alert, other (looks chronically ill) Eyes: non-icteric ENT: oropharynx moist, other (no thyromegaly) Neck: supple, lymphadenopathy, no JVD Effort: mildly labored Ascultation: Bilateral: diminished breath sounds, rales (scant ) Percussion: Bilateral: not dull Cardiovascular: regular rate and rhythm, other (no rubs or murmurs) Gastrointestinal: normoactive bowel sounds, soft, non-tender, non-distended, other (no palpable HSM) Integumentary: other (poor turgor) Extremities: no cyanosis, no edema, pink and warm, pulses normal Neurologic: normal mental status, non-focal exam, pupils equal and round, CN II- XII normal Psychiatric: mood appropriate, affect normal CBC and BMP: 01/14/18 07:28 01/14/18 07:28 ABG, PT/INR, D-dimer: PT/INR, D-dimer PT 14.2 Sec. (12.2-14.9) 01/11/18 14:54 INR 1.05 (0.87-1.13) 01/11/18 14:54 D-Dimer > 67998 ng/mlDDU (0-234) H 01/11/18 14:54 Abnormal lab findings: Abnormal Labs 01/11/18 01/11/18 01/11/18 14:54 14:54 14:54 WBC 14.2 H RBC 5.35 H Hct 43.0 H MCH 23 L MCHC 29 L RDW 17.9 H Seg Neuts % (Manual) 74.0 H Lymphocytes % (Manual) 8.0 L Eosinophils % (Manual) 13.0 H Seg Neutrophils # Man 10.5 H Lymphocytes # (Manual) 1.1 L Eosinophils # (Manual) 1.8 H D-Dimer > 75410 H Carbon Dioxide 20 L Creatinine 0.5 L Lactic Acid Magnesium 2.60 H CK-MB (CK-2) Rel Index 4.3 H Albumin 2.7 L 01/11/18 01/11/18 01/11/18 15:19 20:49 21:42 WBC RBC Hct MCH MCHC RDW Seg Neuts % (Manual) Lymphocytes % (Manual) Eosinophils % (Manual) Seg Neutrophils # Man Lymphocytes # (Manual) Eosinophils # (Manual) D-Dimer Carbon Dioxide Creatinine Lactic Acid 3.20 H* 3.70 H* 4.00 H* Magnesium CK-MB (CK-2) Rel Index Albumin CT scan - chest: image reviewed (entensive mediastinal and hilar adenopathy)
[2018-01-13 11:56] LABS: BUN/Creatinine Ratio 22; Blood Urea Nitrogen 11 mg/dL (7-17); Calcium 9.1 mg/dL (8.4-10.2); Hemolysis Index 14
[2018-01-13] MEDS: NORCO 5/325 PO PRN ×2 (12:14→21:22)
[2018-01-13 12:42] LABS: Basophils # (Auto) 0.1 K/mm3 (0.0-0.1); Basophils % (Auto) 0.6 % (0.0-1.8); Eosinophils % (Auto) 0.3 % (0.0-4.3); Hematocrit 37.1 % (30.3-42.9); Hemoglobin 11.5 gm/dl (10.1-14.3); Lymphocytes # (Auto) 0.6 K/mm3 (1.2-5.4); Lymphocytes % (Auto) 4.4 % (13.4-35.0); Mean Corpuscular HGB Conc 31 % (30-34); Mean Corpuscular Volume 77 fl (79-97); Monocytes # (Auto) 0.9 K/mm3 (0.0-0.8); Monocytes % (Auto) 6.3 % (0.0-7.3); Platelet Count 168 K/mm3 (140-440); Red Blood Count 4.83 M/mm3 (3.65-5.03); Red Cell Distribution Width 16.6 % (13.2-15.2)
[2018-01-13 12:43] LABS: Mean Corpuscular Hemoglobin 24 pg (28-32)
[2018-01-13] MEDS ORDERED: NACL 0.45% 1000 ML 1,000 ML IV SCH ×2 (13:00)
[2018-01-13] MEDS ORDERED: NACL 0.45% 1000 ML IV SCH (13:00)
--- NOTE | 2018-01-13 15:20 | Cat Scan Report ---
FINAL REPORT EXAM: CT ABDOMEN PELVIS WO/W CON HISTORY: liver mets TECHNIQUE: CT abdomen and pelvis performed. Images extend from diaphragm to pubic symphysis. Images were obtained before and after intravenous contrast administration. PRIORS: None. FINDINGS: There are multiple small pulmonary nodules in the lower lungs which is consistent with metastatic disease. There are bilateral small pleural effusions. There are multiple liver masses which are consistent with liver metastases. There are multiple abnormal low-density lymph node in the abdomen, these are seen along the lesser curve, celiac region and in the peripancreatic region. There is cholelithiasis. There is subcutaneous soft tissue nodules in the abdominal wall which are also likely metastatic lesions. There are small enhancing masses within the gluteal musculature which are likely metastatic lesions as well. There is moderate left and mild right hydronephrosis I cannot confirm significant hydroureter. Left ureter is seen down to the level of the bladder where ureteral jet is visualized. Right ureter is not opacified. There is a mass or lymph node in the right renal hilum measuring about 1.6 cm. There is a mass or lymph node in the left renal hilar region measuring about 1.8 cm. The left is only partially obstruction dating. The right appears could be more significantly obstructing. There is generalized edema. There are numerous osseous lytic lesions which are also consistent with metastases. There is anterior epidural enhancing tissue which also likely reflects metastases. This causes [id number] spinal stenosis which is most notable at the level of L4. IMPRESSION: Pulmonary metastatic disease. Small bilateral pleural effusions. Multiple hepatic metastases. Upper abdominal lymphadenopathy is likely metastatic disease. Enhancing subcutaneous and muscular nodules likely represent metastatic disease. There are abnormal masses in the renal jayson bilaterally. On the left this causes moderate hydronephrosis. On the right this causes mild hydronephrosis. Cholelithiasis. Generalized edema. Osseous metastatic disease. Suspect metastatic in the lumbar anterior epidural space. This causes [id number] spinal stenosis, most notable at L4 level.
--- NOTE | 2018-01-13 16:14 | Progress Note ---
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 No new issues overnight. Labs and nursing notes reviewed. Hospitalist Physical - Constitutional Vitals: Temp Pulse Resp BP Pulse Ox 98.3 F 82 18 127/86 96 01/13/18 08:00 01/13/18 14:46 01/13/18 14:46 01/13/18 08:00 01/13/18 10:00 General appearance: Present: no acute distress, cachectic, disheveled - EENT Eyes: Present: PERRL, EOM intact ENT: hearing intact, clear oral mucosa - Neck Neck: Present: supple, normal ROM - Respiratory Respiratory effort: normal Respiratory: bilateral: diminished, wheezing - Cardiovascular Rhythm: regular Heart Sounds: Present: S1 & S2 - Extremities Extremities: no ischemia, No edema - Abdominal General gastrointestinal: soft, non-tender, non-distended - Integumentary Integumentary: Present: clear, warm, dry - Psychiatric Psychiatric: appropriate mood/affect, intact judgment & insight, cooperative - Neurologic Neurologic: CNII-XII intact, moves all extremities Results - Labs CBC & Chem 7: 01/13/18 12:28 01/13/18 10:55 Labs: Laboratory Last Values WBC 14.4 K/mm3 (4.5-11.0) H 01/13/18 12:28 RBC 4.83 M/mm3 (3.65-5.03) 01/13/18 12:28 Hgb 11.5 gm/dl (10.1-14.3) 01/13/18 12:28 Hct 37.1 % (30.3-42.9) 01/13/18 12:28 MCV 77 fl (79-97) L 01/13/18 12:28 MCH 24 pg (28-32) L 01/13/18 12:28 MCHC 31 % (30-34) 01/13/18 12:28 RDW 16.6 % (13.2-15.2) H 01/13/18 12:28 Plt Count 168 K/mm3 (140-440) 01/13/18 12:28 Lymph % (Auto) 4.4 % (13.4-35.0) L 01/13/18 12:28 Mcdowell % (Auto) 6.3 % (0.0-7.3) 01/13/18 12:28 Eos % (Auto) 0.3 % (0.0-4.3) 01/13/18 12: Baso % (Auto) 0.6 % (0.0-1.8) 01/13/18 12:28 Lymph # 0.6 K/mm3 (1.2-5.4) L 01/13/18 12:28 [place] # 0.9 K/mm3 (0.0-0.8) H 01/13/18 12:28 Eos # 0.0 K/mm3 (0.0-0.4) 01/13/18 12:28 Baso # 0.1 K/mm3 (0.0-0.1) 01/13/18 12:28 Add Manual Diff Complete 01/11/18 14:54 Total Counted 100 01/11/18 14:54 Seg Neutrophils % 88.4 % (40.0-70.0) H 01/13/18 12:28 Seg Neuts % (Manual) 74.0 % (40.0-70.0) H 01/11/18 14:54 Band Neutrophils % 0 % 01/11/18 14:54 Lymphocytes % (Manual) 8.0 % (13.4-35.0) L 01/11/18 14:54 Reactive Lymphs % (Man) 0 % 01/11/18 14:54 Monocytes % (Manual) 5.0 % (0.0-7.3) 01/11/18 14:54 Eosinophils % (Manual) 13.0 % (0.0-4.3) H 01/11/18 14:54 Basophils % (Manual) 0 % (0.0-1.8) 01/11/18 14:54 Metamyelocytes % 0 % 01/11/18 14:54 Myelocytes % 0 % 01/11/18 14:54 Promyelocytes % 0 % 01/11/18 14:54 Blast Cells % 0 % 01/11/18 14:54 Nucleated RBC % Not Reportable 01/11/18 14:54 Seg Neutrophils # 12.7 K/mm3 (1.8-7.7) H 01/13/18 12:28 Seg Neutrophils # Man 10.5 K/mm3 (1.8-7.7) H 01/11/18 14:54 Band Neutrophils # 0.0 K/mm3 01/11/18 14:54 Lymphocytes # (Manual) 1.1 K/mm3 (1.2-5.4) L 01/11/18 14:54 Abs React Lymphs (Man) 0.0 K/mm3 01/11/18 14:54 Monocytes # (Manual) 0.7 K/mm3 (0.0-0.8) 01/11/18 14:54 Eosinophils # (Manual) 1.8 K/mm3 (0.0-0.4) H 01/11/18 14:54 Basophils # (Manual) 0.0 K/mm3 (0.0-0.1) 01/11/18 14:54 Metamyelocytes # 0.0 K/mm3 01/11/18 14:54 Myelocytes # 0.0 K/mm3 01/11/18 14:54 Promyelocytes # 0.0 K/mm3 01/11/18 14:54 Blast Cells # 0.0 K/mm3 01/11/18 14:54 WBC Morphology Not Reportable 01/11/18 14:54 Hypersegmented Neuts Not Reportable 01/11/18 14:54 Hyposegmented Neuts Not Reportable 01/11/18 14:54 Hypogranular Neuts Not Reportable 01/11/18 14:54 Smudge Cells Not Reportable 01/11/18 14:54 Toxic Granulation Not Reportable 01/11/18 14:54 Toxic Vacuolation Not Reportable 01/11/18 14:54 Dohle Bodies Not Reportable 01/11/18 14:54 Pelger-Huet Anomaly Not Reportable 01/11/18 14:54 Afshin Rods Not Reportable 01/11/18 14:54 Platelet Estimate Consistent w auto 01/11/18 14:54 Clumped Platelets Not Reportable 01/11/18 14:54 Plt Clumps, EDTA Not Reportable 01/11/18 14:54 Large Platelets Not Reportable 01/11/18 14:54 Giant Platelets Not Reportable 01/11/18 14:54 Platelet Satelliting Not Reportable 01/11/18 14:54 Plt Morphology Comment Not Reportable 01/11/18 14:54 RBC Morphology Not Reportable 01/11/18 14:54 Dimorphic RBCs Not Reportable 01/11/18 14:54 Polychromasia Not Reportable 01/11/18 14:54 Hypochromasia Not Reportable 01/11/18 14:54 Poikilocytosis 1+ 01/11/18 14:54 Anisocytosis 1+ 01/11/18 14:54 Microcytosis Not Reportable 01/11/18 14:54 Macrocytosis Not Reportable 01/11/18 14:54 Spherocytes Not Reportable 01/11/18 14:54 Pappenheimer Bodies Not Reportable 01/11/18 14:54 Sickle Cells Not Reportable 01/11/18 14:54 Target Cells Not Reportable 01/11/18 14:54 Tear Drop Cells Not Reportable 01/11/18 14:54 Ovalocytes Not Reportable 01/11/18 14:54 Helmet Cells Not Reportable 01/11/18 14:54 [place] Bodies Not Reportable 01/11/18 14:54 [place] Rings Not Reportable 01/11/18 14:54 [place] Cells Not Reportable 01/11/18 14:54 Bite Cells Not Reportable 01/11/18 14:54 Crenated Cell Not Reportable 01/11/18 14:54 Elliptocytes Not Reportable 01/11/18 14:54 Acanthocytes (Spur) Not Reportable 01/11/18 14:54 Rouleaux Not Reportable 01/11/18 14:54 Hemoglobin C Crystals Not Reportable 01/11/18 14:54 Schistocytes Not Reportable 01/11/18 14:54 Malaria parasites Not Reportable 01/11/18 14:54 Edil Bodies Not Reportable 01/11/18 14:54 Hem Pathologist Commnt No 01/11/18 14:54 PT 14.2 Sec. (12.2-14.9) 01/11/18 14:54 INR 1.05 (0.87-1.13) 01/11/18 14:54 D-Dimer > 26498 ng/mlDDU (0-234) H 01/11/18 14:54 Sodium 154 mmol/L (137-145) H D 01/13/18 10:55 Potassium 4.3 mmol/L (3.6-5.0) 01/13/18 10:55 Chloride 118.7 mmol/L (98-107) H 01/13/18 10:55 Carbon Dioxide 20 mmol/L (22-30) L 01/13/18 10:55 Anion Gap 20 mmol/L 01/13/18 10:55 BUN 11 mg/dL (7-17) 01/13/18 10:55 Creatinine 0.5 mg/dL (0.7-1.2) L 01/13/18 10:55 Estimated GFR > 60 ml/min 01/13/18 10:55 BUN/Creatinine Ratio 22 % 01/13/18 10:55 Glucose 208 mg/dL (65-100) H 01/13/18 10:55 Lactic Acid 1.50 mmol/L (0.7-2.0) 01/12/18 03:20 Calcium 9.1 mg/dL (8.4-10.2) 01/13/18 10:55 Phosphorus 3.40 mg/dL (2.5-4.5) 01/13/18 10:55 Magnesium 2.40 mg/dL (1.7-2.3) H 01/13/18 10:55 Total Bilirubin 0.30 mg/dL (0.1-1.2) 01/11/18 14:54 AST 19 units/L (5-40) 01/11/18 14:54 ALT 9 units/L (7-56) 01/11/18 14:54 Alkaline Phosphatase 93 units/L (35-129) 01/11/18 14:54 Total Creatine Kinase 51 units/L (30-135) 01/11/18 14:54 CK-MB (CK-2) 2.2 ng/mL (0.0-4.0) 01/11/18 14:54 CK-MB (CK-2) Rel Index 4.3 (0-4) H 01/11/18 14:54 Troponin T 0.021 ng/mL (0.00-0.029) 01/11/18 14:54 NT-Pro-B Natriuret Pep 775.8 pg/mL (0-900) 01/11/18 14:55 Total Protein 7.9 g/dL (6.3-8.2) 01/11/18 14:54 Albumin 2.7 g/dL (3.9-5) L 01/11/18 14:54 Albumin/Globulin Ratio 0.5 % 01/11/18 14:54 Urine Color Red (Yellow) 01/11/18 13:50 Urine Turbidity Clear (Clear) 01/11/18 13:50 Urine pH 6.0 (5.0-7.0) 01/11/18 13:50 Ur Specific [place] 1.003 (1.003-1.030) 01/11/18 13:50 Urine Protein <15 mg/dl mg/dL (Negative) 01/11/18 13:50 Urine Glucose (UA) Neg mg/dL (Negative) 01/11/18 13:50 Urine Ketones Neg mg/dL (Negative) 01/11/18 13:50 Urine Blood Sm (Negative) 01/11/18 13:50 Urine Nitrite Neg (Negative) 01/11/18 13:50 Urine Bilirubin Neg (Negative) 01/11/18 13:50 Urine Urobilinogen < 2.0 mg/dL (<2.0) 01/11/18 13:50 Ur Leukocyte Esterase Sm (Negative) 01/11/18 13:50 Urine WBC (Auto) 3.0 /HPF (0.0-6.0) 01/11/18 13:50 Urine RBC (Auto) 1.0 /HPF (0.0-6.0) 01/11/18 13:50 U Epithel Cells (Auto) 1.0 /HPF (0-13.0) 01/11/18 13:50 Urine Bacteria (Auto) 1+ /HPF (Negative) 01/11/18 13:50 Urine Mucus Few /HPF 01/11/18 13:50 <EBONI NOYOLA - Last Filed: 01/13/18 18:51> Assessment and Plan Assessment and plan: I saw and evaluated the patient. I agree with the findings and the plan of care as documented in the Nurse Practitioner's~note, with the following corrections and additions. I discussed with Dr. Hernandez, Oncology. She recommends surgical consult for excisional biopsy instead of more invasive liver or lung biopsy. I also discussed with Dr. Bustillos. Hospitalist Physical - Constitutional Vitals: Temp Pulse Resp BP Pulse Ox 97.2 F L 108 H 19 122/80 91 01/13/18 16:36 01/13/18 16:36 01/13/18 16:36 01/13/18 16:36 01/13/18 16:36 Results - Labs CBC & Chem 7: 01/13/18 12:28 01/13/18 10:55 Labs: Laboratory Last Values WBC 14.4 K/mm3 (4.5-11.0) H 01/13/18 12:28 RBC 4.83 M/mm3 (3.65-5.03) 01/13/18 12:28 Hgb 11.5 gm/dl (10.1-14.3) 01/13/18 12:28 Hct 37.1 % (30.3-42.9) 01/13/18 12:28 MCV 77 fl (79-97) L 01/13/18 12:28 MCH 24 pg (28-32) L 01/13/18 12:28 MCHC 31 % (30-34) 01/13/18 12:28 RDW 16.6 % (13.2-15.2) H 01/13/18 12:28 Plt Count 168 K/mm3 (140-440) 01/13/18 12:28 Lymph % (Auto) 4.4 % (13.4-35.0) L 01/13/18 12:28 Mcdowell % (Auto) 6.3 % (0.0-7.3) 01/13/18 12:28 Eos % (Auto) 0.3 % (0.0-4.3) 01/13/18 12:28 Baso % (Auto) 0.6 % (0.0-1.8) 01/13/18 12:28 Lymph # 0.6 K/mm3 (1.2-5.4) L 01/13/18 12:28 [place] # 0.9 K/mm3 (0.0-0.8) H 01/13/18 12:28 Eos # 0.0 K/mm3 (0.0-0.4) 01/13/18 12:28 Baso # 0.1 K/mm3 (0.0-0.1) 01/13/18 12:28 Add Manual Diff Complete 01/11/18 14:54 Total Counted 100 01/11/18 14:54 Seg Neutrophils % 88.4 % (40.0-70.0) H 01/13/18 12:28 Seg Neuts % (Manual) 74.0 % (40.0-70.0) H 01/11/18 14:54 Band Neutrophils % 0 % 01/11/18 14:54 Lymphocytes % (Manual) 8.0 % (13.4-35.0) L 01/11/18 14:54 Reactive Lymphs % (Man) 0 % 01/11/18 14:54 Monocytes % (Manual) 5.0 % (0.0-7.3) 01/11/18 14:54 Eosinophils % (Manual) 13.0 % (0.0-4.3) H 01/11/18 14:54 Basophils % (Manual) 0 % (0.0-1.8) 01/11/18 14:54 Metamyelocytes % 0 % 01/11/18 14:54 Myelocytes % 0 % 01/11/18 14:54 Promyelocytes % 0 % 01/11/18 14:54 Blast Cells % 0 % 01/11/18 14:54 Nucleated RBC % Not Reportable 01/11/18 14:54 Seg Neutrophils # 12.7 K/mm3 (1.8-7.7) H 01/13/18 12:28 Seg Neutrophils # Man 10.5 K/mm3 (1.8-7.7) H 01/11/18 14:54 Band Neutrophils # 0.0 K/mm3 01/11/18 14:54 Lymphocytes # (Manual) 1.1 K/mm3 (1.2-5.4) L 01/11/18 14:54 Abs React Lymphs (Man) 0.0 K/mm3 01/11/18 14:54 Monocytes # (Manual) 0.7 K/mm3 (0.0-0.8) 01/11/18 14:54 Eosinophils # (Manual) 1.8 K/mm3 (0.0-0.4) H 01/11/18 14:54 Basophils # (Manual) 0.0 K/mm3 (0.0-0.1) 01/11/18 14:54 Metamyelocytes # 0.0 K/mm3 01/11/18 14:54 Myelocytes # 0.0 K/mm3 01/11/18 14:54 Promyelocytes # 0.0 K/mm3 01/11/18 14:54 Blast Cells # 0.0 K/mm3 01/11/18 14:54 WBC Morphology Not Reportable 01/11/18 14:54 Hypersegmented Neuts Not Reportable 01/11/18 14:54 Hyposegmented Neuts Not Reportable 01/11/18 14:54 Hypogranular Neuts Not Reportable 01/11/18 14:54 Smudge Cells Not Reportable 01/11/18 14:54 Toxic Granulation Not Reportable 01/11/18 14:54 Toxic Vacuolation Not Reportable 01/11/18 14:54 Dohle Bodies Not Reportable 01/11/18 14:54 Pelger-Huet Anomaly Not Reportable 01/11/18 14:54 Afshin Rods Not Reportable 01/11/18 14:54 Platelet Estimate Consistent w auto 01/11/18 14:54 Clumped Platelets Not Reportable 01/11/18 14:54 Plt Clumps, EDTA Not Reportable 01/11/18 14:54 Large Platelets Not Reportable 01/11/18 14:54 Giant Platelets Not Reportable 01/11/18 14:54 Platelet Satelliting Not Reportable 01/11/18 14:54 Plt Morphology Comment Not Reportable 01/11/18 14:54 RBC Morphology Not Reportable 01/11/18 14:54 Dimorphic RBCs Not Reportable 01/11/18 14:54 Polychromasia Not Reportable 01/11/18 14:54 Hypochromasia Not Reportable 01/11/18 14:54 Poikilocytosis 1+ 01/11/18 14:54 Anisocytosis 1+ 01/11/18 14:54 Microcytosis Not Reportable 01/11/18 14:54 Macrocytosis Not Reportable 01/11/18 14:54 Spherocytes Not Reportable 01/11/18 14:54 Pappenheimer Bodies Not Reportable 01/11/18 14:54 Sickle Cells Not Reportable 01/11/18 14:54 Target Cells Not Reportable 01/11/18 14:54 Tear Drop Cells Not Reportable 01/11/18 14:54 Ovalocytes Not Reportable 01/11/18 14:54 Helmet Cells Not Reportable 01/11/18 14:54 [place] Bodies Not Reportable 01/11/18 14:54 [place] Rings Not Reportable 01/11/18 14:54 [place] Cells Not Reportable 01/11/18 14:54 Bite Cells Not Reportable 01/11/18 14:54 Crenated Cell Not Reportable 01/11/18 14:54 Elliptocytes Not Reportable 01/11/18 14:54 Acanthocytes (Spur) Not Reportable 01/11/18 14:54 Rouleaux Not Reportable 01/11/18 14:54 Hemoglobin C Crystals Not Reportable 01/11/18 14:54 Schistocytes Not Reportable 01/11/18 14:54 Malaria parasites Not Reportable 01/11/18 14:54 Edil Bodies Not Reportable 01/11/18 14:54 Hem Pathologist Commnt No 01/11/18 14:54 PT 14.2 Sec. (12.2-14.9) 01/11/18 14:54 INR 1.05 (0.87-1.13) 01/11/18 14:54 D-Dimer > 01091 ng/mlDDU (0-234) H 01/11/18 14:54 Sodium 154 mmol/L (137-145) H D 01/13/18 10:55 Potassium 4.3 mmol/L (3.6-5.0) 01/13/18 10:55 Chloride 118.7 mmol/L (98-107) H 01/13/18 10:55 Carbon Dioxide 20 mmol/L (22-30) L 01/13/18 10:55 Anion Gap 20 mmol/L 01/13/18 10:55 BUN 11 mg/dL (7-17) 01/13/18 10:55 Creatinine 0.5 mg/dL (0.7-1.2) L 01/13/18 10:55 Estimated GFR > 60 ml/min 01/13/18 10:55 BUN/Creatinine Ratio 22 % 01/13/18 10:55 Glucose 208 mg/dL (65-100) H 01/13/18 10:55 Lactic Acid 1.50 mmol/L (0.7-2.0) 01/12/18 03:20 Calcium 9.1 mg/dL (8.4-10.2) 01/13/18 10:55 Phosphorus 3.40 mg/dL (2.5-4.5) 01/13/18 10:55 Magnesium 2.40 mg/dL (1.7-2.3) H 01/13/18 10:55 Total Bilirubin 0.30 mg/dL (0.1-1.2) 01/11/18 14:54 AST 19 units/L (5-40) 01/11/18 14:54 ALT 9 units/L (7-56) 01/11/18 14:54 Alkaline Phosphatase 93 units/L (35-129) 01/11/18 14:54 Total Creatine Kinase 51 units/L (30-135) 01/11/18 14:54 CK-MB (CK-2) 2.2 ng/mL (0.0-4.0) 01/11/18 14:54 CK-MB (CK-2) Rel Index 4.3 (0-4) H 01/11/18 14:54 Troponin T 0.021 ng/mL (0.00-0.029) 01/11/18 14:54 NT-Pro-B Natriuret Pep 775.8 pg/mL (0-900) 01/11/18 14:55 Total Protein 7.9 g/dL (6.3-8.2) 01/11/18 14:54 Albumin 2.7 g/dL (3.9-5) L 01/11/18 14:54 Albumin/Globulin Ratio 0.5 % 01/11/18 14:54 Urine Color Red (Yellow) 01/11/18 13:50 Urine Turbidity Clear (Clear) 01/11/18 13:50 Urine pH 6.0 (5.0-7.0) 01/11/18 13:50 Ur Specific [place] 1.003 (1.003-1.030) 01/11/18 13:50 Urine Protein <15 mg/dl mg/dL (Negative) 01/11/18 13:50 Urine Glucose (UA) Neg mg/dL (Negative) 01/11/18 13:50 Urine Ketones Neg mg/dL (Negative) 01/11/18 13:50 Urine Blood Sm (Negative) 01/11/18 13:50 Urine Nitrite Neg (Negative) 01/11/18 13:50 Urine Bilirubin Neg (Negative) 01/11/18 13:50 Urine Urobilinogen < 2.0 mg/dL (<2.0) 01/11/18 13:50 Ur Leukocyte Esterase Sm (Negative) 01/11/18 13:50 Urine WBC (Auto) 3.0 /HPF (0.0-6.0) 01/11/18 13:50 Urine RBC (Auto) 1.0 /HPF (0.0-6.0) 01/11/18 13:50 U Epithel Cells (Auto) 1.0 /HPF (0-13.0) 01/11/18 13:50 Urine Bacteria (Auto) 1+ /HPF (Negative) 01/11/18 13:50 Urine Mucus Few /HPF 01/11/18 13:50
--- NOTE | 2018-01-13 16:22 | Consultation ---
History of Present Illness Consult date: 01/13/18 Reason for consult: other (Biopsy request) Requesting physician: EBONI NOYOLA Chief complaint: Weakness - History of present illness History of present illness: 62 YO Female with HIV, HTN, Malnutrition was admitted from ED on 01/11/18 for shortness of breath, nonproductive cough , and decreased oral intake for the past 3 days with persistent symptoms. Workup revealed concern for neoplasm and metastatic disease. Patient in need of tissue sample for diagnostic purposes. General surgery was consulted for consideration of biopsy of one of her skin nodules. Patient denies any complaints at any of the nodule sites. She reports nodules of been there for a long period of time. Past History Past Medical History: HIV/AIDS, hypertension, other (malnutrition) Past Surgical History: No surgical history, Other (reviewed) Social history: single Medications and Allergies Allergies Allergy/AdvReac Type Severity Reaction Status Date / Time No Known Allergies Allergy Unverified 01/11/18 14:17 Home Medications Medication Instructions Recorded Confirmed Last Taken Type Aspirin [Aspirin EC] 81 mg PO DAILY 01/11/18 01/11/18 Unknown History Dolutegravir Sodium [Tivicay] 50 mg PO DAILY 01/11/18 01/11/18 Unknown History Emtricitabine/Tenofov Alafenam 1 each PO DAILY 01/11/18 01/11/18 Unknown History [Descovy 200-25 mg Tablet] Ergocalciferol [Vitamin D2] 1 cap PO QWEEK 01/11/18 01/11/18 Unknown History Folic Acid [Folvite] 1 mg PO QDAY 01/11/18 01/11/18 Unknown History Rosuvastatin Calcium [Crestor] 40 mg PO QHS 01/11/18 01/11/18 Unknown History Sulfamethoxazole/Trimethoprim 1 each PO DAILY 01/11/18 01/11/18 Unknown History [Bactrim DS TAB] amLODIPine [Norvasc] 10 mg PO DAILY 01/11/18 01/11/18 Unknown History Active Meds: Active Medications Acetaminophen (Tylenol) 650 mg PO Q4H PRN PRN Reason: Pain MILD(1-3)/Fever >100.5/VEE Last Admin: 01/13/18 09:45 Dose: 650 mg Acetaminophen/Hydrocodone Bitart ([place] 5/325) 1 each PO Q4H PRN PRN Reason: Pain, Moderate (4-6) Last Admin: 01/13/18 12:14 Dose: 1 each Albuterol (Proventil) 2.5 mg IH Q4HRT PRN PRN Reason: Shortness Of Breath Albuterol/Ipratropium (Duoneb *Not For Prn Use*) 1 ampul IH Q6HRT [facility] Last Admin: 01/13/18 14:39 Dose: 1 ampul Amlodipine Besylate (Norvasc) 10 mg PO DAILY [facility] Last Admin: 01/13/18 09:46 Dose: 10 mg Aspirin (Halfprin Ec) 81 mg PO DAILY [facility] Last Admin: 01/13/18 09:45 Dose: 81 mg Atorvastatin Calcium (Lipitor) 40 mg PO QHS [facility] Last Admin: 01/12/18 21:49 Dose: 40 mg Azithromycin (Zithromax) 500 mg PO QDAY [facility] Last Admin: 01/13/18 09:46 Dose: 500 mg Ergocalciferol (Vitamin D2) 50,000 unit PO Mo [facility] Folic Acid (Folvite) 1 mg PO QDAY [facility] Last Admin: 01/13/18 09:45 Dose: 1 mg Ceftriaxone Sodium 1 gm/ (Sodium Chloride) 20 mls @ 2 mls/min IV Q24HR [facility] Last Admin: 01/13/18 09:47 Dose: 2 mls/min Sodium Chloride (Nacl 0.45% 1000 Ml) 1,000 mls @ 75 mls/hr IV DIRECT [facility] Methylprednisolone Sodium Succinate (Solu-Medrol) 40 mg IV Q8HR [facility] Last Admin: 01/13/18 06:17 Dose: 40 mg Miscellaneous Medication (Emtricitabine/Tenofov Alafenam [Descovy 200-25 Mg Tablet]) 1 each PO DAILY [facility] Last Admin: 01/13/18 09:46 Dose: 1 each Ondansetron HCl (Zofran) 4 mg IV Q8H PRN PRN Reason: Nausea And Vomiting Last Admin: 01/13/18 03:49 Dose: 4 mg Sodium Chloride (Sodium Chloride Flush Syringe 10 Ml) 10 ml IV BID [facility] Last Admin: 01/13/18 09:50 Dose: 10 ml Sodium Chloride (Sodium Chloride Flush Syringe 10 Ml) 10 ml IV PRN PRN PRN Reason: LINE FLUSH Last Admin: 01/13/18 06:17 Dose: 10 ml Trimethoprim/Sulfamethoxazole (Bactrim Ds) 1 each PO DAILY [facility] Last Admin: 01/13/18 09:45 Dose: 1 each Review of Systems - Constitutional weight loss, weakness - Cardiovascular no chest pain - Respiratory shortness of breath - Gastrointestinal no abdominal pain - Genitourinary Genitourinary: mixed incontinence - Integumentary growths, no rash, no wounds Exam Vital Signs Pulse Resp BP 104 H 28 H 105/74 01/11/18 14:07 01/11/18 14:07 01/11/18 14:07 - General physical appearance Positive: no distress, no pain, other (pleasant lady) - Respiratory Positive: normal expansion, normal respiratory effort - Extremities Extremities: normal temperature - Abdomen Abdomen: Present: soft, masses (multiple superficial skin masses were easily visible. Nontender). Absent: tender - Integumentary no rash, other (multiple growths were seen) - Neurologic Neurologic: alert and oriented to time, place and person, motor strength and sensation are grossly intact - Psychiatric Psychiatric: appropriate mood/affect, intact judgment & insight, cooperative Results - Labs 01/13/18 12:28 01/13/18 10:55 Abnormal lab results 01/13/18 01/13/18 Range/Units 10:55 12:28 WBC 14.4 H (4.5-11.0) K/mm3 MCV 77 L (79-97) fl MCH 24 L (28-32) pg RDW 16.6 H (13.2-15.2) % Lymph % (Auto) 4.4 L (13.4-35.0) % Lymph # 0.6 L (1.2-5.4) K/mm3 [place] # 0.9 H (0.0-0.8) K/mm3 Seg Neutrophils % 88.4 H (40.0-70.0) % Seg Neutrophils # 12.7 H (1.8-7.7) K/mm3 Sodium 154 H D (137-145) mmol/L Chloride 118.7 H (98-107) mmol/L Carbon Dioxide 20 L (22-30) mmol/L Creatinine 0.5 L (0.7-1.2) mg/dL Glucose 208 H (65-100) mg/dL Magnesium 2.40 H (1.7-2.3) mg/dL Diabetes panel 01/13/18 Range/Units 10:55 Sodium 154 H D (137-145) mmol/L Potassium 4.3 (3.6-5.0) mmol/L Chloride 118.7 H (98-107) mmol/L Carbon Dioxide 20 L (22-30) mmol/L BUN 11 (7-17) mg/dL Creatinine 0.5 L (0.7-1.2) mg/dL Glucose 208 H (65-100) mg/dL Calcium 9.1 (8.4-10.2) mg/dL Calcium panel 01/13/18 Range/Units 10:55 Calcium 9.1 (8.4-10.2) mg/dL Phosphorus 3.40 (2.5-4.5) mg/dL Pituitary panel 01/13/18 Range/Units 10:55 Sodium 154 H D (137-145) mmol/L Potassium 4.3 (3.6-5.0) mmol/L Chloride 118.7 H (98-107) mmol/L Carbon Dioxide 20 L (22-30) mmol/L BUN 11 (7-17) mg/dL Creatinine 0.5 L (0.7-1.2) mg/dL Glucose 208 H (65-100) mg/dL Calcium 9.1 (8.4-10.2) mg/dL Adrenal panel 01/13/18 Range/Units 10:55 Sodium 154 H D (137-145) mmol/L Potassium 4.3 (3.6-5.0) mmol/L Chloride 118.7 H (98-107) mmol/L Carbon Dioxide 20 L (22-30) mmol/L BUN 11 (7-17) mg/dL Creatinine 0.5 L (0.7-1.2) mg/dL Glucose 208 H (65-100) mg/dL Calcium 9.1 (8.4-10.2) mg/dL - Imaging CT scan - abdomen: report reviewed, image reviewed Assessment and Plan - Patient Problems (1) Generalized subcutaneous nodules Current Visit: Yes Status: Acute Plan to address problem: Patient stable. Discussed case with Dr. Hernandez. Plan to perform excisional biopsy of abdominal wall masses on Thursday at 8 AM in the operating room. Procedures, risks, benefits, alternatives were discussed with the patient. Risks included but were not limited to infection, bleeding, pain, injury to surrounding structures, possible need further procedures. Patient understood and consented. Will place preop orders tomorrow. Thank you for this consult. time=45min
[2018-01-14] MEDS: DUONEB *Not for PRN Use IH SCH ×4 (01:23→21:32)
[2018-01-14] MEDS: NORCO 5/325 PO PRN ×3 (05:18→18:00)
[2018-01-14] MEDS: SODIUM CHLORIDE FLUSH SYRINGE 10 ML IV SCH (05:19)
[2018-01-14 07:45] LABS: Hematocrit 35.2 % (30.3-42.9); Mean Corpuscular HGB Conc 31 % (30-34); Mean Corpuscular Hemoglobin 24 pg (28-32); Mean Corpuscular Volume 76 fl (79-97); Platelet Count 137 K/mm3 (140-440); Red Blood Count 4.62 M/mm3 (3.65-5.03); Red Cell Distribution Width 16.5 % (13.2-15.2)
[2018-01-14 08:06] LABS: BUN/Creatinine Ratio 30; Blood Urea Nitrogen 12 mg/dL (7-17); Calcium 9.6 mg/dL (8.4-10.2); Hemolysis Index 3
--- NOTE | 2018-01-14 08:57 | Progress Note ---
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 Lactic acidosis resolved. Lactic acidosis secondary to sepsis, resolved Cachexia/Severe protein malnutrition [employer] consulted Hypernatremia D5 initiated for replacement, dc NS Bilateral hydronephrosis Patient's kidney function is within normal limits, urology consulted Polysubstance abuse Crack, cocaine, tobacco, Patient counseled on cessation Suspected TB Patient under isolation until TB workup is completed. History Interval history: Patient seen and examined. No new issues overnight. Labs and nursing notes reviewed. Hospitalist Physical - Constitutional Vitals: Temp Pulse Resp BP Pulse Ox 97.7 F 93 H 16 143/97 95 01/14/18 08:04 01/14/18 08:04 01/14/18 08:04 01/14/18 08:04 01/14/18 08:04 General appearance: Present: no acute distress, cachectic, disheveled - EENT Eyes: Present: PERRL, EOM intact ENT: hearing intact, poor dentition - Neck Neck: Present: supple, normal ROM - Respiratory Respiratory effort: normal Respiratory: bilateral: diminished - Cardiovascular Rhythm: regular Heart Sounds: Present: S1 & S2. Absent: rub, click - Extremities Extremities: no ischemia, No edema, normal temperature - Abdominal General gastrointestinal: soft, non-tender, non-distended - Integumentary Integumentary: Present: warm, dry (multiple nodules present all over the abdomen ) - Psychiatric Psychiatric: appropriate mood/affect, intact judgment & insight, cooperative - Neurologic Neurologic: CNII-XII intact, moves all extremities Results - Labs CBC & Chem 7: 01/14/18 07:28 01/14/18 07:28 Labs: Laboratory Last Values WBC 11.2 K/mm3 (4.5-11.0) H 01/14/18 07:28 RBC 4.62 M/mm3 (3.65-5.03) 01/14/18 07:28 Hgb 11.0 gm/dl (10.1-14.3) 01/14/18 07: Hct 35.2 % (30.3-42.9) 01/14/18 07: MCV 76 fl (79-97) L 01/14/18 07:28 MCH 24 pg (28-32) L 01/14/18 07: MCHC 31 % (30-34) 01/14/18 07: RDW 16.5 % (13.2-15.2) H 01/14/18 07:28 Plt Count 137 K/mm3 (140-440) L 01/14/18 07:28 Lymph % (Auto) 4.4 % (13.4-35.0) L 01/13/18 12:28 [place] % (Auto) 6.3 % (0.0-7.3) 01/13/18 12:28 Eos % (Auto) 0.3 % (0.0-4.3) 01/13/18 12:28 Baso % (Auto) 0.6 % (0.0-1.8) 01/13/18 12:28 Lymph # 0.6 K/mm3 (1.2-5.4) L 01/13/18 12:28 [place] # 0.9 K/mm3 (0.0-0.8) H 01/13/18 12:28 Eos # 0.0 K/mm3 (0.0-0.4) 01/13/18 12:28 Baso # 0.1 K/mm3 (0.0-0.1) 01/13/18 12:28 Add Manual Diff Complete 01/11/18 14:54 Total Counted 100 01/11/18 14:54 Seg Neutrophils % 88.4 % (40.0-70.0) H 01/13/18 12:28 Seg Neuts % (Manual) 74.0 % (40.0-70.0) H 01/11/18 14:54 Band Neutrophils % 0 % 01/11/18 14:54 Lymphocytes % (Manual) 8.0 % (13.4-35.0) L 01/11/18 14:54 Reactive Lymphs % (Man) 0 % 01/11/18 14:54 Monocytes % (Manual) 5.0 % (0.0-7.3) 01/11/18 14:54 Eosinophils % (Manual) 13.0 % (0.0-4.3) H 01/11/18 14:54 Basophils % (Manual) 0 % (0.0-1.8) 01/11/18 14:54 Metamyelocytes % 0 % 01/11/18 14:54 Myelocytes % 0 % 01/11/18 14:54 Promyelocytes % 0 % 01/11/18 14:54 Blast Cells % 0 % 01/11/18 14:54 Nucleated RBC % Not Reportable 01/11/18 14:54 Seg Neutrophils # 12.7 K/mm3 (1.8-7.7) H 01/13/18 12:28 Seg Neutrophils # Man 10.5 K/mm3 (1.8-7.7) H 01/11/18 14:54 Band Neutrophils # 0.0 K/mm3 01/11/18 14:54 Lymphocytes # (Manual) 1.1 K/mm3 (1.2-5.4) L 01/11/18 14:54 Abs React Lymphs (Man) 0.0 K/mm3 01/11/18 14:54 Monocytes # (Manual) 0.7 K/mm3 (0.0-0.8) 01/11/18 14:54 Eosinophils # (Manual) 1.8 K/mm3 (0.0-0.4) H 01/11/18 14:54 Basophils # (Manual) 0.0 K/mm3 (0.0-0.1) 01/11/18 14:54 Metamyelocytes # 0.0 K/mm3 01/11/18 14:54 Myelocytes # 0.0 K/mm3 01/11/18 14:54 Promyelocytes # 0.0 K/mm3 01/11/18 14:54 Blast Cells # 0.0 K/mm3 01/11/18 14:54 WBC Morphology Not Reportable 01/11/18 14:54 Hypersegmented Neuts Not Reportable 01/11/18 14:54 Hyposegmented Neuts Not Reportable 01/11/18 14:54 Hypogranular Neuts Not Reportable 01/11/18 14:54 Smudge Cells Not Reportable 01/11/18 14:54 Toxic Granulation Not Reportable 01/11/18 14:54 Toxic Vacuolation Not Reportable 01/11/18 14:54 Dohle Bodies Not Reportable 01/11/18 14:54 Pelger-Huet Anomaly Not Reportable 01/11/18 14:54 Afshin Rods Not Reportable 01/11/18 14:54 Platelet Estimate Consistent w auto 01/11/18 14:54 Clumped Platelets Not Reportable 01/11/18 14:54 Plt Clumps, EDTA Not Reportable 01/11/18 14:54 Large Platelets Not Reportable 01/11/18 14:54 Giant Platelets Not Reportable 01/11/18 14:54 Platelet Satelliting Not Reportable 01/11/18 14:54 Plt Morphology Comment Not Reportable 01/11/18 14:54 RBC Morphology Not Reportable 01/11/18 14:54 Dimorphic RBCs Not Reportable 01/11/18 14:54 Polychromasia Not Reportable 01/11/18 14:54 Hypochromasia Not Reportable 01/11/18 14:54 Poikilocytosis 1+ 01/11/18 14:54 Anisocytosis 1+ 01/11/18 14:54 Microcytosis Not Reportable 01/11/18 14:54 Macrocytosis Not Reportable 01/11/18 14:54 Spherocytes Not Reportable 01/11/18 14:54 Pappenheimer Bodies Not Reportable 01/11/18 14:54 Sickle Cells Not Reportable 01/11/18 14:54 Target Cells Not Reportable 01/11/18 14:54 Tear Drop Cells Not Reportable 01/11/18 14:54 Ovalocytes Not Reportable 01/11/18 14:54 Helmet Cells Not Reportable 01/11/18 14:54 [place] Bodies Not Reportable 01/11/18 14:54 [place] Rings Not Reportable 01/11/18 14:54 Miki Cells Not Reportable 01/11/18 14:54 Bite Cells Not Reportable 01/11/18 14:54 Crenated Cell Not Reportable 01/11/18 14:54 Elliptocytes Not Reportable 01/11/18 14:54 Acanthocytes (Spur) Not Reportable 01/11/18 14:54 Rouleaux Not Reportable 01/11/18 14:54 Hemoglobin C Crystals Not Reportable 01/11/18 14:54 Schistocytes Not Reportable 01/11/18 14:54 Malaria parasites Not Reportable 01/11/18 14:54 Edil Bodies Not Reportable 01/11/18 14:54 Hem Pathologist Commnt No 01/11/18 14:54 PT 14.2 Sec. (12.2-14.9) 01/11/18 14:54 INR 1.05 (0.87-1.13) 01/11/18 14:54 D-Dimer > 14353 ng/mlDDU (0-234) H 01/11/18 14:54 Sodium 155 mmol/L (137-145) H 01/14/18 07:28 Potassium 4.2 mmol/L (3.6-5.0) 01/14/18 07:28 Chloride 120.3 mmol/L (98-107) H 01/14/18 07:28 Carbon Dioxide 24 mmol/L (22-30) 01/14/18 07:28 Anion Gap 15 mmol/L 01/14/18 07:28 BUN 12 mg/dL (7-17) 01/14/18 07:28 Creatinine 0.4 mg/dL (0.7-1.2) L 01/14/18 07:28 Estimated GFR > 60 ml/min 01/14/18 07:28 BUN/Creatinine Ratio 30 % 01/14/18 07:28 Glucose 111 mg/dL (65-100) H 01/14/18 07:28 Lactic Acid 1.50 mmol/L (0.7-2.0) 01/12/18 03:20 Calcium 9.6 mg/dL (8.4-10.2) 01/14/18 07:28 Phosphorus 3.40 mg/dL (2.5-4.5) 01/13/18 10:55 Magnesium 2.40 mg/dL (1.7-2.3) H 01/13/18 10:55 Total Bilirubin 0.30 mg/dL (0.1-1.2) 01/11/18 14:54 AST 19 units/L (5-40) 01/11/18 14:54 ALT 9 units/L (7-56) 01/11/18 14:54 Alkaline Phosphatase 93 units/L (35-129) 01/11/18 14:54 Total Creatine Kinase 51 units/L (30-135) 01/11/18 14:54 CK-MB (CK-2) 2.2 ng/mL (0.0-4.0) 01/11/18 14:54 CK-MB (CK-2) Rel Index 4.3 (0-4) H 01/11/18 14:54 Troponin T 0.021 ng/mL (0.00-0.029) 01/11/18 14:54 NT-Pro-B Natriuret Pep 775.8 pg/mL (0-900) 01/11/18 14:55 Total Protein 7.9 g/dL (6.3-8.2) 01/11/18 14:54 Albumin 2.7 g/dL (3.9-5) L 01/11/18 14:54 Albumin/Globulin Ratio 0.5 % 01/11/18 14:54 Urine Color Red (Yellow) 01/11/18 13:50 Urine Turbidity Clear (Clear) 01/11/18 13:50 Urine pH 6.0 (5.0-7.0) 01/11/18 13:50 Ur Specific [place] 1.003 (1.003-1.030) 01/11/18 13:50 Urine Protein <15 mg/dl mg/dL (Negative) 01/11/18 13:50 Urine Glucose (UA) Neg mg/dL (Negative) 01/11/18 13:50 Urine Ketones Neg mg/dL (Negative) 01/11/18 13:50 Urine Blood Sm (Negative) 01/11/18 13:50 Urine Nitrite Neg (Negative) 01/11/18 13:50 Urine Bilirubin Neg (Negative) 01/11/18 13:50 Urine Urobilinogen < 2.0 mg/dL (<2.0) 01/11/18 13:50 Ur Leukocyte Esterase Sm (Negative) 01/11/18 13:50 Urine WBC (Auto) 3.0 /HPF (0.0-6.0) 01/11/18 13:50 Urine RBC (Auto) 1.0 /HPF (0.0-6.0) 01/11/18 13:50 U Epithel Cells (Auto) 1.0 /HPF (0-13.0) 01/11/18 13:50 Urine Bacteria (Auto) 1+ /HPF (Negative) 01/11/18 13:50 Urine Mucus Few /HPF 01/11/18 13:50 <MANOHARZHAOEBONI O - Last Filed: 01/16/18 14:24> Assessment and Plan Assessment and plan: I saw and evaluated the patient. I agree with the findings and the plan of care as documented in the Nurse Practitioner's~note, with the following corrections and additions. Patient with HIV/AIDS with bilateral lung lesios. metastatic ca versus TB. She is on isolation to r/o TB Hospitalist Physical - Constitutional Vitals: Temp Pulse Resp BP Pulse Ox 98.4 F 102 H 20 112/83 95 01/16/18 08:13 01/16/18 09:30 01/16/18 09:30 01/16/18 08:13 01/16/18 09:16 Results - Labs CBC & Chem 7: 01/16/18 06:04 01/16/18 06:04 Labs: Laboratory Last Values WBC 11.2 K/mm3 (4.5-11.0) H 01/16/18 06:04 RBC 4.40 M/mm3 (3.65-5.03) 01/16/18 06:04 Hgb 10.6 gm/dl (10.1-14.3) 01/16/18 06:04 Hct 33.3 % (30.3-42.9) 01/16/18 06:04 MCV 76 fl (79-97) L 01/16/18 06:04 MCH 24 pg (28-32) L 01/16/18 06:04 MCHC 32 % (30-34) 01/16/18 06:04 RDW 16.8 % (13.2-15.2) H 01/16/18 06:04 Plt Count 110 K/mm3 (140-440) L 01/16/18 06:04 Lymph % (Auto) 6.5 % (13.4-35.0) L 01/16/18 06:04 [place] % (Auto) 9.7 % (0.0-7.3) H 01/16/18 06:04 Eos % (Auto) 0.2 % (0.0-4.3) 01/16/18 06:04 Baso % (Auto) 0.4 % (0.0-1.8) 01/16/18 06:04 Lymph # 0.7 K/mm3 (1.2-5.4) L 01/16/18 06:04 [place] # 1.1 K/mm3 (0.0-0.8) H 01/16/18 06:04 Eos # 0.0 K/mm3 (0.0-0.4) 01/16/18 06:04 Baso # 0.0 K/mm3 (0.0-0.1) 01/16/18 06:04 Add Manual Diff Complete 01/11/18 14:54 Total Counted 100 01/11/18 14:54 Seg Neutrophils % 83.2 % (40.0-70.0) H 01/16/18 06:04 Seg Neuts % (Manual) 74.0 % (40.0-70.0) H 01/11/18 14:54 Band Neutrophils % 0 % 01/11/18 14:54 Lymphocytes % (Manual) 8.0 % (13.4-35.0) L 01/11/18 14:54 Reactive Lymphs % (Man) 0 % 01/11/18 14:54 Monocytes % (Manual) 5.0 % (0.0-7.3) 01/11/18 14:54 Eosinophils % (Manual) 13.0 % (0.0-4.3) H 01/11/18 14:54 Basophils % (Manual) 0 % (0.0-1.8) 01/11/18 14:54 Metamyelocytes % 0 % 01/11/18 14:54 Myelocytes % 0 % 01/11/18 14:54 Promyelocytes % 0 % 01/11/18 14:54 Blast Cells % 0 % 01/11/18 14:54 Nucleated RBC % Not Reportable 01/11/18 14:54 Seg Neutrophils # 9.3 K/mm3 (1.8-7.7) H 01/16/18 06:04 Seg Neutrophils # Man 10.5 K/mm3 (1.8-7.7) H 01/11/18 14:54 Band Neutrophils # 0.0 K/mm3 01/11/18 14:54 Lymphocytes # (Manual) 1.1 K/mm3 (1.2-5.4) L 01/11/18 14:54 Abs React Lymphs (Man) 0.0 K/mm3 01/11/18 14:54 Monocytes # (Manual) 0.7 K/mm3 (0.0-0.8) 01/11/18 14:54 Eosinophils # (Manual) 1.8 K/mm3 (0.0-0.4) H 01/11/18 14:54 Basophils # (Manual) 0.0 K/mm3 (0.0-0.1) 01/11/18 14:54 Metamyelocytes # 0.0 K/mm3 01/11/18 14:54 Myelocytes # 0.0 K/mm3 01/11/18 14:54 Promyelocytes # 0.0 K/mm3 01/11/18 14:54 Blast Cells # 0.0 K/mm3 01/11/18 14:54 WBC Morphology Not Reportable 01/11/18 14:54 Hypersegmented Neuts Not Reportable 01/11/18 14:54 Hyposegmented Neuts Not Reportable 01/11/18 14:54 Hypogranular Neuts Not Reportable 01/11/18 14:54 Smudge Cells Not Reportable 01/11/18 14:54 Toxic Granulation Not Reportable 01/11/18 14:54 Toxic Vacuolation Not Reportable 01/11/18 14:54 Dohle Bodies Not Reportable 01/11/18 14:54 Pelger-Huet Anomaly Not Reportable 01/11/18 14:54 Afshin Rods Not Reportable 01/11/18 14:54 Platelet Estimate Consistent w auto 01/11/18 14:54 Clumped Platelets Not Reportable 01/11/18 14:54 Plt Clumps, EDTA Not Reportable 01/11/18 14:54 Large Platelets Not Reportable 01/11/18 14:54 Giant Platelets Not Reportable 01/11/18 14:54 Platelet Satelliting Not Reportable 01/11/18 14:54 Plt Morphology Comment Not Reportable 01/11/18 14:54 RBC Morphology Not Reportable 01/11/18 14:54 Dimorphic RBCs Not Reportable 01/11/18 14:54 Polychromasia Not Reportable 01/11/18 14:54 Hypochromasia Not Reportable 01/11/18 14:54 Poikilocytosis 1+ 01/11/18 14:54 Anisocytosis 1+ 01/11/18 14:54 Microcytosis Not Reportable 01/11/18 14:54 Macrocytosis Not Reportable 01/11/18 14:54 Spherocytes Not Reportable 01/11/18 14:54 Pappenheimer Bodies Not Reportable 01/11/18 14:54 Sickle Cells Not Reportable 01/11/18 14:54 Target Cells Not Reportable 01/11/18 14:54 Tear Drop Cells Not Reportable 01/11/18 14:54 Ovalocytes Not Reportable 01/11/18 14:54 Helmet Cells Not Reportable 01/11/18 14:54 [place] Bodies Not Reportable 01/11/18 14:54 [place] Rings Not Reportable 01/11/18 14:54 Miki Cells Not Reportable 01/11/18 14:54 Bite Cells Not Reportable 01/11/18 14:54 Crenated Cell Not Reportable 01/11/18 14:54 Elliptocytes Not Reportable 01/11/18 14:54 Acanthocytes (Spur) Not Reportable 01/11/18 14:54 Rouleaux Not Reportable 01/11/18 14:54 Hemoglobin C Crystals Not Reportable 01/11/18 14:54 Schistocytes Not Reportable 01/11/18 14:54 Malaria parasites Not Reportable 01/11/18 14:54 Edil Bodies Not Reportable 01/11/18 14:54 Hem Pathologist Commnt No 01/11/18 14:54 PT 14.2 Sec. (12.2-14.9) 01/11/18 14:54 INR 1.05 (0.87-1.13) 01/11/18 14:54 D-Dimer > 46895 ng/mlDDU (0-234) H 01/11/18 14:54 Sodium 146 mmol/L (137-145) H 01/16/18 06:04 Potassium 4.2 mmol/L (3.6-5.0) 01/16/18 06:04 Chloride 110.5 mmol/L (98-107) H 01/16/18 06:04 Carbon Dioxide 23 mmol/L (22-30) 01/16/18 06:04 Anion Gap 17 mmol/L 01/16/18 06:04 BUN 21 mg/dL (7-17) H 01/16/18 06:04 Creatinine 0.7 mg/dL (0.7-1.2) 01/16/18 06:04 Estimated GFR > 60 ml/min 01/16/18 06:04 BUN/Creatinine Ratio 30 % 01/16/18 06:04 Glucose 112 mg/dL (65-100) H 01/16/18 06:04 Lactic Acid 1.50 mmol/L (0.7-2.0) 01/12/18 03:20 Calcium 9.7 mg/dL (8.4-10.2) 01/16/18 06:04 Phosphorus 3.40 mg/dL (2.5-4.5) 01/13/18 10:55 Magnesium 2.40 mg/dL (1.7-2.3) H 01/13/18 10:55 Total Bilirubin 0.20 mg/dL (0.1-1.2) 01/16/18 06:04 AST 19 units/L (5-40) 01/16/18 06:04 ALT 9 units/L (7-56) 01/16/18 06:04 Alkaline Phosphatase 121 units/L (35-129) 01/16/18 06:04 Total Creatine Kinase 51 units/L (30-135) 01/11/18 14:54 CK-MB (CK-2) 2.2 ng/mL (0.0-4.0) 01/11/18 14:54 CK-MB (CK-2) Rel Index 4.3 (0-4) H 01/11/18 14:54 Troponin T 0.021 ng/mL (0.00-0.029) 01/11/18 14:54 NT-Pro-B Natriuret Pep 775.8 pg/mL (0-900) 01/11/18 14:55 Total Protein 6.7 g/dL (6.3-8.2) 01/16/18 06:04 Albumin 2.7 g/dL (3.9-5) L 01/16/18 06:04 Albumin/Globulin Ratio 0.7 % 01/16/18 06:04 Urine Color Red (Yellow) 01/11/18 13:50 Urine Turbidity Clear (Clear) 01/11/18 13:50 Urine pH 6.0 (5.0-7.0) 01/11/18 13:50 Ur Specific [place] 1.003 (1.003-1.030) 01/11/18 13:50 Urine Protein <15 mg/dl mg/dL (Negative) 01/11/18 13:50 Urine Glucose (UA) Neg mg/dL (Negative) 01/11/18 13:50 Urine Ketones Neg mg/dL (Negative) 01/11/18 13:50 Urine Blood Sm (Negative) 01/11/18 13:50 Urine Nitrite Neg (Negative) 01/11/18 13:50 Urine Bilirubin Neg (Negative) 01/11/18 13:50 Urine Urobilinogen < 2.0 mg/dL (<2.0) 01/11/18 13:50 Ur Leukocyte Esterase Sm (Negative) 01/11/18 13:50 Urine WBC (Auto) 3.0 /HPF (0.0-6.0) 01/11/18 13:50 Urine RBC (Auto) 1.0 /HPF (0.0-6.0) 01/11/18 13:50 U Epithel Cells (Auto) 1.0 /HPF (0-13.0) 01/11/18 13:50 Urine Bacteria (Auto) 1+ /HPF (Negative) 01/11/18 13:50 Urine Mucus Few /HPF 01/11/18 13:50 HIV-1 RNA PCR copies/ml 98 Copies/mL H 01/13/18 10:55 HIV-1 RNA (PCR) log 1.99 Log cps/mL H 01/13/18 10:55 Miscellaneous Test Flexitest 1 01/13/18 09:37
[2018-01-14] MEDS ORDERED: D5W 1,000 ML IV SCH (09:00)
[2018-01-14] MEDS ORDERED: ANCEF/STERILE WATER 2 GM/20 ML 2 GM/20 ML SYRINGE IV SCH (09:00)
--- NOTE | 2018-01-14 10:05 | Progress Note ---
Assessment and Plan Assessment: 1) SIRS: Present on admission, manifested by tachycardia, leukocytosis, increased lactate. - Leukocytosis trending down. - Lactic acidosis resolved. 2) Pulmonary nodules and hilar, mediastinal lymphadenopathy, with metastatic disease to liver, bones, skin, muscular seen on CT C/A/P. Highly suggestive of malignancy. 3) Bilateral hydronephrosis (L>R). 4) Recent diagnosis of HIV/AIDS at [facility]. On Descovy and Tivicay and OI prophylaxis with bactrim. 5) Cachexia/Severe protein caloric malnutrition. 6) Generalized lymphadenopathy - due to HIV +/- malignancy. 7) Probable COPD 8) Syncope 9) Poly-substance abuse: crack/cocaine, tobacco. Recommendations: -f/u blood cx. -Will f/u CD4 count and HIV-VL. -General surgery will do abdominal nodule biopsy on 01/15/18. -Continue HAART. -Continue ceftriaxone and azithromcycin. -Continue PJP prophylaxis with bactrim -AFB in sputum x3. -Maintain airborne isolation -Check Legionella ag, pneumococcal ag and Histoplasma urinary antigens, Quantiferon, aspergillus ag. -Gets records from [facility]. -d/w pt, RN. -Will follow up with you. Cami Bobo MD Infectious Diseases Specialist [facility] M [phone] Subjective Date of service: 01/14/18 Principal diagnosis: Abnormal CT Chest; Lung Masses; HIV positive Interval history: Afberile. Says feels better. c/o dry mouth. On NC. Microbiology: Blood cultures: 01/11 NGTD Cryptococcal ag serum 01/13 negative Current Antimicrobials: Ceftriaxone 01/11- Azithromycin 01/11- Bactrim 01/11- HAART: Descovy and Tivicay Previous Antimicrobials: Levaquin x1 01/11 Other meds: Solumedrol 01/11- Objective - Exam Narrative Exam: General appearance: Alert in NAD, conversant, cachectic. On NC. Eyes: anicteric sclerae, moist conjunctivae; PERRLA, EOMI. HENT: Atraumatic; oropharynx clear, with moist mucous membranes and no mucosal ulcerations/no oral thrush; normal hard and soft palate. Normal external ears. Neck: Supple Lungs: CTA, with normal respiratory effort and no intercostal retractions CV: S1,S2. RRR. Abdomen: +BS. Soft. NT/ND. Palpable masses anterior abdominal wall. Extremities: No c/c/e. Skin: No rash, no open wounds. Lymph nodes: palpable LN, cervical, axillary, inguinal. Psych: Appropriate affect, alert and oriented to person, place and time. Neuro: alert and oriented x 3. Grossly non-focal Lines: No CVL / PICC - Constitutional Vitals: Vital Signs Temp Pulse Resp BP Pulse Ox 97.7 F 93 H 16 143/97 95 01/14/18 08:04 01/14/18 08:04 01/14/18 08:04 01/14/18 08:04 01/14/18 08:04 Temperature -Last 24 Hours Temperature 97.7 F Temperature 97.8 F Temperature 97.2 F Temperature 97.7 F - Labs CBC & Chem 7: 01/14/18 07:28 01/14/18 07:28 Labs: Abnormal lab results 01/13/18 01/13/18 01/14/18 Range/Units 10:55 12:28 07:28 WBC 14.4 H (4.5-11.0) K/mm3 MCV 77 L (79-97) fl MCH 24 L (28-32) pg RDW 16.6 H (13.2-15.2) % Plt Count (140-440) K/mm3 Lymph % (Auto) 4.4 L (13.4-35.0) % Lymph # 0.6 L (1.2-5.4) K/mm3 Barber # 0.9 H (0.0-0.8) K/mm3 Seg Neutrophils % 88.4 H (40.0-70.0) % Seg Neutrophils # 12.7 H (1.8-7.7) K/mm3 Sodium 154 H D 155 H (137-145) mmol/L Chloride 118.7 H 120.3 H (98-107) mmol/L Carbon Dioxide 20 L (22-30) mmol/L Creatinine 0.5 L 0.4 L (0.7-1.2) mg/dL Glucose 208 H 111 H (65-100) mg/dL Magnesium 2.40 H (1.7-2.3) mg/dL 01/14/18 Range/Units 07:28 WBC 11.2 H (4.5-11.0) K/mm3 MCV 76 L (79-97) fl MCH 24 L (28-32) pg RDW 16.5 H (13.2-15.2) % Plt Count 137 L (140-440) K/mm3 Lymph % (Auto) (13.4-35.0) % Lymph # (1.2-5.4) K/mm3 Barber # (0.0-0.8) K/mm3 Seg Neutrophils % (40.0-70.0) % Seg Neutrophils # (1.8-7.7) K/mm3 Sodium (137-145) mmol/L Chloride (98-107) mmol/L Carbon Dioxide (22-30) mmol/L Creatinine (0.7-1.2) mg/dL Glucose (65-100) mg/dL Magnesium (1.7-2.3) mg/dL
[2018-01-14] MEDS: cefTRIAXone 1 GM in NACL 0.9% 20 ML IV SCH (10:43)
--- NOTE | 2018-01-14 11:35 | Hem/Onc Progress Note ---
Assessment and Plan For nodule excisional biopsy tomorrow morning. Continue supportive care Subjective Date of service: 01/14/18 Interval history: Patient feels fair. Appreciate surgery evaluation. Objective - Constitutional Vitals: Last Vital Signs Temp 97.7 F 01/14/18 08:04 Pulse 95 H 01/14/18 11:27 Resp 18 01/14/18 11:27 BP 143/97 01/14/18 08:04 Pulse Ox 98 01/14/18 11:23 General appearance: cachectic Performance status: 3-limited selfcare - Neck Neck: supple - Respiratory Respiratory: bilateral: diminished - Cardiovascular Rhythm: regular - Integumentary Integumentary: warm (multiple nodules present all over the abdomen axilla) - Labs Lab Results: Laboratory Results - last 24 hr 01/13/18 01/13/18 01/14/18 10:55 12:28 07:28 WBC 14.4 H RBC 4.83 Hgb 11.5 Hct 37.1 MCV 77 L MCH 24 L MCHC 31 RDW 16.6 H Plt Count 168 Lymph % (Auto) 4.4 L [place] % (Auto) 6.3 Eos % (Auto) 0.3 Baso % (Auto) 0.6 Lymph # 0.6 L [place] # 0.9 H Eos # 0.0 Baso # 0.1 Seg Neutrophils % 88.4 H Seg Neutrophils # 12.7 H Sodium 154 H D 155 H Potassium 4.3 4.2 Chloride 118.7 H 120.3 H Carbon Dioxide 20 L 24 Anion Gap 20 15 BUN 11 12 Creatinine 0.5 L 0.4 L Estimated GFR > 60 > 60 BUN/Creatinine Ratio 22 30 Glucose 208 H 111 H Calcium 9.1 9.6 Phosphorus 3.40 Magnesium 2.40 H 01/14/18 07:28 WBC 11.2 H RBC 4.62 Hgb 11.0 Hct 35.2 MCV 76 L MCH 24 L MCHC 31 RDW 16.5 H Plt Count 137 L Lymph % (Auto) [place] % (Auto) Eos % (Auto) Baso % (Auto) Lymph # [place] # Eos # Baso # Seg Neutrophils % Seg Neutrophils # Sodium Potassium Chloride Carbon Dioxide Anion Gap BUN Creatinine Estimated GFR BUN/Creatinine Ratio Glucose Calcium Phosphorus Magnesium
--- NOTE | 2018-01-14 19:35 | Anesthesia Consultation ---
Anesthesia Consult and Med Hx Date of service: 01/14/18 - Airway Anesthetic Teeth Evaluation: Poor ROM Head & Neck: Adequate Mental/Hyoid Distance: Adequate Mallampati Class: Class I Intubation Access Assessment: Good - Pulmonary Exam CTA: Yes - Cardiac Exam Cardiac Exam: RRR - Pre-Operative Health Status ASA Pre-Surgery Classification: ASA3 Proposed Anesthetic Plan: General - Pulmonary Hx Smoking: Yes COPD: Yes - Cardiovascular System Hx Hypertension: Yes - Central Nervous System Hx Psychiatric Problems: No - Hematic Hx Anemia: Yes - Other Systems Hx Cancer: No - Additional Comments Anesthesia Medical History Comments: HIV , possible cancer . polysubstance abuse
--- NOTE | 2018-01-14 20:02 | Progress Note ---
Assessment and Plan Patient resting on 2 litres O2. No acute respiratory distress.O2 saturation 95%. - Patient Problems (1) Pulmonary nodules/lesions, multiple Current Visit: Yes Status: Acute Plan to address problem: Some of the lesions are peripheral. Recommend percutaneous needle biopsy of peripheral lung lesions by interventional radiology. (2) Generalized subcutaneous nodules Current Visit: Yes Status: Acute Plan to address problem: Surgery consulted to get biopsy of subcutaneous lesions. (3) HIV (human immunodeficiency virus infection) Current Visit: Yes Status: Acute Plan to address problem: Management as per infectious diseases. Subjective Date of service: 01/14/18 Principal diagnosis: Abnormal CT Chest; Lung Masses; HIV positive Interval history: Patient resting on 2 litres O2. No acute respiratory distress.O2 saturation 95%. Objective Vital Signs - 12hr 01/14/18 01/14/18 01/14/18 08:04 11:13 11:23 Temperature 97.7 F Pulse Rate 93 H Pulse Rate [ 93 H Bilateral Throughout] Respiratory 16 Rate Respiratory 21 Rate [Bilateral Throughout] Blood Pressure 143/97 O2 Sat by Pulse 95 98 Oximetry 01/14/18 01/14/18 01/14/18 11:27 11:58 15:22 Temperature 98.1 F 97.2 F L Pulse Rate 101 H 99 H Pulse Rate [ 95 H Bilateral Throughout] Respiratory 16 18 Rate Respiratory 18 Rate [Bilateral Throughout] Blood Pressure 142/88 130/91 O2 Sat by Pulse 96 97 Oximetry 01/14/18 01/14/18 16:45 16:55 Temperature Pulse Rate Pulse Rate [ 86 94 H Bilateral Throughout] Respiratory Rate Respiratory 22 20 Rate [Bilateral Throughout] Blood Pressure O2 Sat by Pulse Oximetry Constitutional: no acute distress, alert, other (looks chronically ill) Eyes: non-icteric ENT: oropharynx moist, other (no thyromegaly) Neck: supple, lymphadenopathy, no JVD Effort: mildly labored Ascultation: Bilateral: diminished breath sounds, rales (scant ) Percussion: Bilateral: not dull Cardiovascular: regular rate and rhythm, other (no rubs or murmurs) Gastrointestinal: normoactive bowel sounds, soft, non-tender, non-distended, other (no palpable HSM) Integumentary: other (poor turgor) Extremities: no cyanosis, no edema, pink and warm, pulses normal Neurologic: normal mental status, non-focal exam, pupils equal and round, CN II- XII normal Psychiatric: mood appropriate, affect normal CBC and BMP: 01/15/18 08:05 01/15/18 08:05 ABG, PT/INR, D-dimer: PT/INR, D-dimer PT 14.2 Sec. (12.2-14.9) 01/11/18 14:54 INR 1.05 (0.87-1.13) 01/11/18 14:54 D-Dimer > 41530 ng/mlDDU (0-234) H 01/11/18 14:54 Abnormal lab findings: Abnormal Labs 01/11/18 01/11/18 01/11/18 14:54 14:54 14:54 WBC 14.2 H RBC 5.35 H Hct 43.0 H MCV MCH 23 L MCHC 29 L RDW 17.9 H Plt Count Lymph % (Auto) Lymph # [place] # Seg Neutrophils % Seg Neuts % (Manual) 74.0 H Lymphocytes % (Manual) 8.0 L Eosinophils % (Manual) 13.0 H Seg Neutrophils # Seg Neutrophils # Man 10.5 H Lymphocytes # (Manual) 1.1 L Eosinophils # (Manual) 1.8 H D-Dimer > 45431 H Sodium Chloride Carbon Dioxide 20 L Creatinine 0.5 L Glucose Lactic Acid Magnesium 2.60 H CK-MB (CK-2) Rel Index 4.3 H Albumin 2.7 L 01/11/18 01/11/18 01/11/18 15:19 20:49 21:42 WBC RBC Hct MCV MCH MCHC RDW Plt Count Lymph % (Auto) Lymph # [place] # Seg Neutrophils % Seg Neuts % (Manual) Lymphocytes % (Manual) Eosinophils % (Manual) Seg Neutrophils # Seg Neutrophils # Man Lymphocytes # (Manual) Eosinophils # (Manual) D-Dimer Sodium Chloride Carbon Dioxide Creatinine Glucose Lactic Acid 3.20 H* 3.70 H* 4.00 H* Magnesium CK-MB (CK-2) Rel Index Albumin 01/13/18 01/13/18 01/14/18 10:55 12:28 07:28 WBC 14.4 H RBC Hct MCV 77 L MCH 24 L MCHC RDW 16.6 H Plt Count Lymph % (Auto) 4.4 L Lymph # 0.6 L [place] # 0.9 H Seg Neutrophils % 88.4 H Seg Neuts % (Manual) Lymphocytes % (Manual) Eosinophils % (Manual) Seg Neutrophils # 12.7 H Seg Neutrophils # Man Lymphocytes # (Manual) Eosinophils # (Manual) D-Dimer Sodium 154 H D 155 H Chloride 118.7 H 120.3 H Carbon Dioxide 20 L Creatinine 0.5 L 0.4 L Glucose 208 H 111 H Lactic Acid Magnesium 2.40 H CK-MB (CK-2) Rel Index Albumin 01/14/18 07:28 WBC 11.2 H RBC Hct MCV 76 L MCH 24 L MCHC RDW 16.5 H Plt Count 137 L Lymph % (Auto) Lymph # [place] # Seg Neutrophils % Seg Neuts % (Manual) Lymphocytes % (Manual) Eosinophils % (Manual) Seg Neutrophils # Seg Neutrophils # Man Lymphocytes # (Manual) Eosinophils # (Manual) D-Dimer Sodium Chloride Carbon Dioxide Creatinine Glucose Lactic Acid Magnesium CK-MB (CK-2) Rel Index Albumin CT scan - chest: report reviewed (Metastatic pulmonary and bone malignancy.Pathologic mediastinal and hilar adenopathy. No Pulmonary embolism.) , image reviewed
[2018-01-15] MEDS: NORCO 5/325 PO PRN ×3 (01:31→21:39)
[2018-01-15] MEDS: SODIUM CHLORIDE FLUSH SYRINGE 10 ML IV SCH ×2 (01:36→11:59)
[2018-01-15] MEDS: LACTATED RINGERS 1,000 ML IV SCH (01:36)
[2018-01-15] MEDS: DUONEB *Not for PRN Use IH SCH ×4 (03:04→20:52)
[2018-01-15] MEDS ORDERED: ceFAZolin 2 GM in NACL 0.9% 100 ML IV ONE (07:00)
[2018-01-15 08:25] LABS: Mean Corpuscular HGB Conc 31 % (30-34); Mean Corpuscular Volume 76 fl (79-97); Platelet Count 115 K/mm3 (140-440); Red Blood Count 4.58 M/mm3 (3.65-5.03); Red Cell Distribution Width 16.6 % (13.2-15.2)
[2018-01-15] MEDS ORDERED: XYLOCAINE 1% 20 mL ONE (08:30)
[2018-01-15 08:41] LABS: Mean Corpuscular Hemoglobin 24 pg (28-32)
[2018-01-15 08:42] LABS: BUN/Creatinine Ratio 34; Blood Urea Nitrogen 17 mg/dL (7-17); Calcium 9.6 mg/dL (8.4-10.2); Hemolysis Index 25
--- NOTE | 2018-01-15 09:19 | Hem/Onc Progress Note ---
Assessment and Plan Follow up after the biopsy. Platelets have dropped slightly. Will follow Subjective Date of service: 01/15/18 Interval history: Patient feels fair. Appreciate surgery evaluation. For surgery today. Feels better. Thirsty Objective - Constitutional Vitals: Last Vital Signs Temp 98.5 F 01/15/18 07:51 Pulse 104 H 01/15/18 07:51 Resp 16 01/15/18 07:51 BP 110/82 01/15/18 07:51 Pulse Ox 97 01/15/18 07:51 General appearance: no acute distress - Neck Neck: supple - Respiratory Respiratory: bilateral: diminished - Cardiovascular Rhythm: regular - Integumentary Integumentary: rash (multiple nodules all over the skin) - Labs Lab Results: Laboratory Results - last 24 hr 01/15/18 01/15/18 08:05 08:05 WBC 11.0 RBC 4.58 Hgb 11.0 Hct 35.0 MCV 76 L MCH 24 L MCHC 31 RDW 16.6 H Plt Count 115 L Sodium 149 H Potassium 4.3 Chloride 113.4 H Carbon Dioxide 23 Anion Gap 17 BUN 17 Creatinine 0.5 L Estimated GFR > 60 BUN/Creatinine Ratio 34 Glucose 106 H Calcium 9.6
--- NOTE | 2018-01-15 10:16 | Progress Note ---
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 Lactic acidosis resolved. 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 History Interval history: Patient seen and examined. No new issues overnight. Labs and nursing notes reviewed. Hospitalist Physical - Constitutional Vitals: Temp Pulse Resp BP Pulse Ox 98.5 F 104 H 16 110/82 97 01/15/18 07:51 01/15/18 07:51 01/15/18 07:51 01/15/18 07:51 01/15/18 07:51 General appearance: Present: no acute distress, cachectic, disheveled - EENT Eyes: Present: PERRL, EOM intact ENT: hearing intact, clear oral mucosa - Neck Neck: Present: supple, normal ROM - Respiratory Respiratory effort: normal Respiratory: bilateral: CTA - Cardiovascular Rhythm: regular Heart Sounds: Present: S1 & S2 - Extremities Extremities: no ischemia, No edema, normal temperature - Abdominal General gastrointestinal: soft, non-tender, non-distended - Integumentary Integumentary: Present: clear, warm, dry - Psychiatric Psychiatric: appropriate mood/affect, intact judgment & insight, cooperative - Neurologic Neurologic: CNII-XII intact, moves all extremities Results - Labs CBC & Chem 7: 01/15/18 08:05 01/15/18 08:05 Labs: Laboratory Last Values WBC 11.0 K/mm3 (4.5-11.0) 01/15/18 08:05 RBC 4.58 M/mm3 (3.65-5.03) 01/15/18 08:05 Hgb 11.0 gm/dl (10.1-14.3) 01/15/18 08:05 Hct 35.0 % (30.3-42.9) 01/15/18 08:05 MCV 76 fl (79-97) L 01/15/18 08:05 MCH 24 pg (28-32) L 01/15/18 08:05 MCHC 31 % (30-34) 01/15/18 08:05 RDW 16.6 % (13.2-15.2) H 01/15/18 08:05 Plt Count 115 K/mm3 (140-440) L 01/15/18 08:05 Lymph % (Auto) 4.4 % (13.4-35.0) L 01/13/18 12:28 [place] % (Auto) 6.3 % (0.0-7.3) 01/13/18 12:28 Eos % (Auto) 0.3 % (0.0-4.3) 01/13/18 12:28 Baso % (Auto) 0.6 % (0.0-1.8) 01/13/18 12:28 Lymph # 0.6 K/mm3 (1.2-5.4) L 01/13/18 12:28 [place] # 0.9 K/mm3 (0.0-0.8) H 01/13/18 12:28 Eos # 0.0 K/mm3 (0.0-0.4) 01/13/18 12:28 Baso # 0.1 K/mm3 (0.0-0.1) 01/13/18 12:28 Add Manual Diff Complete 01/11/18 14:54 Total Counted 100 01/11/18 14:54 Seg Neutrophils % 88.4 % (40.0-70.0) H 01/13/18 12:28 Seg Neuts % (Manual) 74.0 % (40.0-70.0) H 01/11/18 14:54 Band Neutrophils % 0 % 01/11/18 14:54 Lymphocytes % (Manual) 8.0 % (13.4-35.0) L 01/11/18 14:54 Reactive Lymphs % (Man) 0 % 01/11/18 14:54 Monocytes % (Manual) 5.0 % (0.0-7.3) 01/11/18 14:54 Eosinophils % (Manual) 13.0 % (0.0-4.3) H 01/11/18 14:54 Basophils % (Manual) 0 % (0.0-1.8) 01/11/18 14:54 Metamyelocytes % 0 % 01/11/18 14:54 Myelocytes % 0 % 01/11/18 14:54 Promyelocytes % 0 % 01/11/18 14:54 Blast Cells % 0 % 01/11/18 14:54 Nucleated RBC % Not Reportable 01/11/18 14:54 Seg Neutrophils # 12.7 K/mm3 (1.8-7.7) H 01/13/18 12:28 Seg Neutrophils # Man 10.5 K/mm3 (1.8-7.7) H 01/11/18 14:54 Band Neutrophils # 0.0 K/mm3 01/11/18 14:54 Lymphocytes # (Manual) 1.1 K/mm3 (1.2-5.4) L 01/11/18 14:54 Abs React Lymphs (Man) 0.0 K/mm3 01/11/18 14:54 Monocytes # (Manual) 0.7 K/mm3 (0.0-0.8) 01/11/18 14:54 Eosinophils # (Manual) 1.8 K/mm3 (0.0-0.4) H 01/11/18 14:54 Basophils # (Manual) 0.0 K/mm3 (0.0-0.1) 01/11/18 14:54 Metamyelocytes # 0.0 K/mm3 01/11/18 14:54 Myelocytes # 0.0 K/mm3 01/11/18 14:54 Promyelocytes # 0.0 K/mm3 01/11/18 14:54 Blast Cells # 0.0 K/mm3 01/11/18 14:54 WBC Morphology Not Reportable 01/11/18 14:54 Hypersegmented Neuts Not Reportable 01/11/18 14:54 Hyposegmented Neuts Not Reportable 01/11/18 14:54 Hypogranular Neuts Not Reportable 01/11/18 14:54 Smudge Cells Not Reportable 01/11/18 14:54 Toxic Granulation Not Reportable 01/11/18 14:54 Toxic Vacuolation Not Reportable 01/11/18 14:54 Dohle Bodies Not Reportable 01/11/18 14:54 Pelger-Huet Anomaly Not Reportable 01/11/18 14:54 Afshin Rods Not Reportable 01/11/18 14:54 Platelet Estimate Consistent w auto 01/11/18 14:54 Clumped Platelets Not Reportable 01/11/18 14:54 Plt Clumps, EDTA Not Reportable 01/11/18 14:54 Large Platelets Not Reportable 01/11/18 14:54 Giant Platelets Not Reportable 01/11/18 14:54 Platelet Satelliting Not Reportable 01/11/18 14:54 Plt Morphology Comment Not Reportable 01/11/18 14:54 RBC Morphology Not Reportable 01/11/18 14:54 Dimorphic RBCs Not Reportable 01/11/18 14:54 Polychromasia Not Reportable 01/11/18 14:54 Hypochromasia Not Reportable 01/11/18 14:54 Poikilocytosis 1+ 01/11/18 14:54 Anisocytosis 1+ 01/11/18 14:54 Microcytosis Not Reportable 01/11/18 14:54 Macrocytosis Not Reportable 01/11/18 14:54 Spherocytes Not Reportable 01/11/18 14:54 Pappenheimer Bodies Not Reportable 01/11/18 14:54 Sickle Cells Not Reportable 01/11/18 14:54 Target Cells Not Reportable 01/11/18 14:54 Tear Drop Cells Not Reportable 01/11/18 14:54 Ovalocytes Not Reportable 01/11/18 14:54 Helmet Cells Not Reportable 01/11/18 14:54 [place] Bodies Not Reportable 01/11/18 14:54 [place] Rings Not Reportable 01/11/18 14:54 [place] Cells Not Reportable 01/11/18 14:54 Bite Cells Not Reportable 01/11/18 14:54 Crenated Cell Not Reportable 01/11/18 14:54 Elliptocytes Not Reportable 01/11/18 14:54 Acanthocytes (Spur) Not Reportable 01/11/18 14:54 Rouleaux Not Reportable 01/11/18 14:54 Hemoglobin C Crystals Not Reportable 01/11/18 14:54 Schistocytes Not Reportable 01/11/18 14:54 Malaria parasites Not Reportable 01/11/18 14:54 Edil Bodies Not Reportable 01/11/18 14:54 Hem Pathologist Commnt No 01/11/18 14:54 PT 14.2 Sec. (12.2-14.9) 01/11/18 14:54 INR 1.05 (0.87-1.13) 01/11/18 14:54 D-Dimer > 31007 ng/mlDDU (0-234) H 01/11/18 14:54 Sodium 149 mmol/L (137-145) H 01/15/18 08:05 Potassium 4.3 mmol/L (3.6-5.0) 01/15/18 08:05 Chloride 113.4 mmol/L (98-107) H 01/15/18 08:05 Carbon Dioxide 23 mmol/L (22-30) 01/15/18 08:05 Anion Gap 17 mmol/L 01/15/18 08:05 BUN 17 mg/dL (7-17) 01/15/18 08:05 Creatinine 0.5 mg/dL (0.7-1.2) L 01/15/18 08:05 Estimated GFR > 60 ml/min 01/15/18 08:05 BUN/Creatinine Ratio 34 % 01/15/18 08:05 Glucose 106 mg/dL (65-100) H 01/15/18 08:05 Lactic Acid 1.50 mmol/L (0.7-2.0) 01/12/18 03:20 Calcium 9.6 mg/dL (8.4-10.2) 01/15/18 08:05 Phosphorus 3.40 mg/dL (2.5-4.5) 01/13/18 10:55 Magnesium 2.40 mg/dL (1.7-2.3) H 01/13/18 10:55 Total Bilirubin 0.30 mg/dL (0.1-1.2) 01/11/18 14:54 AST 19 units/L (5-40) 01/11/18 14:54 ALT 9 units/L (7-56) 01/11/18 14:54 Alkaline Phosphatase 93 units/L (35-129) 01/11/18 14:54 Total Creatine Kinase 51 units/L (30-135) 01/11/18 14:54 CK-MB (CK-2) 2.2 ng/mL (0.0-4.0) 01/11/18 14:54 CK-MB (CK-2) Rel Index 4.3 (0-4) H 01/11/18 14:54 Troponin T 0.021 ng/mL (0.00-0.029) 01/11/18 14:54 NT-Pro-B Natriuret Pep 775.8 pg/mL (0-900) 01/11/18 14:55 Total Protein 7.9 g/dL (6.3-8.2) 01/11/18 14:54 Albumin 2.7 g/dL (3.9-5) L 01/11/18 14:54 Albumin/Globulin Ratio 0.5 % 01/11/18 14:54 Urine Color Red (Yellow) 01/11/18 13:50 Urine Turbidity Clear (Clear) 01/11/18 13:50 Urine pH 6.0 (5.0-7.0) 01/11/18 13:50 Ur Specific [place] 1.003 (1.003-1.030) 01/11/18 13:50 Urine Protein <15 mg/dl mg/dL (Negative) 01/11/18 13:50 Urine Glucose (UA) Neg mg/dL (Negative) 01/11/18 13:50 Urine Ketones Neg mg/dL (Negative) 01/11/18 13:50 Urine Blood Sm (Negative) 01/11/18 13:50 Urine Nitrite Neg (Negative) 01/11/18 13:50 Urine Bilirubin Neg (Negative) 01/11/18 13:50 Urine Urobilinogen < 2.0 mg/dL (<2.0) 01/11/18 13:50 Ur Leukocyte Esterase Sm (Negative) 01/11/18 13:50 Urine WBC (Auto) 3.0 /HPF (0.0-6.0) 01/11/18 13:50 Urine RBC (Auto) 1.0 /HPF (0.0-6.0) 01/11/18 13:50 U Epithel Cells (Auto) 1.0 /HPF (0-13.0) 01/11/18 13:50 Urine Bacteria (Auto) 1+ /HPF (Negative) 01/11/18 13:50 Urine Mucus Few /HPF 01/11/18 13:50 <EBONI NOYOLA O - Last Filed: 01/16/18 14:29> Assessment and Plan Assessment and plan: I saw and evaluated the patient. I agree with the findings and the plan of care as documented in the Nurse Practitioner's~note, with the following corrections and additions. Patient placed in isolation room, until pulm TB ruled out. Hospitalist Physical - Constitutional Vitals: Temp Pulse Resp BP Pulse Ox 98.4 F 102 H 20 112/83 95 01/16/18 08:13 01/16/18 09:30 01/16/18 09:30 01/16/18 08:13 01/16/18 09:16 Results - Labs CBC & Chem 7: 01/16/18 06:04 01/16/18 06:04 Labs: Laboratory Last Values WBC 11.2 K/mm3 (4.5-11.0) H 01/16/18 06:04 RBC 4.40 M/mm3 (3.65-5.03) 01/16/18 06:04 Hgb 10.6 gm/dl (10.1-14.3) 01/16/18 06:04 Hct 33.3 % (30.3-42.9) 01/16/18 06:04 MCV 76 fl (79-97) L 01/16/18 06:04 MCH 24 pg (28-32) L 01/16/18 06:04 MCHC 32 % (30-34) 01/16/18 06:04 RDW 16.8 % (13.2-15.2) H 01/16/18 06:04 Plt Count 110 K/mm3 (140-440) L 01/16/18 06:04 Lymph % (Auto) 6.5 % (13.4-35.0) L 01/16/18 06:04 [place] % (Auto) 9.7 % (0.0-7.3) H 01/16/18 06:04 Eos % (Auto) 0.2 % (0.0-4.3) 01/16/18 06:04 Baso % (Auto) 0.4 % (0.0-1.8) 01/16/18 06:04 Lymph # 0.7 K/mm3 (1.2-5.4) L 01/16/18 06:04 [place] # 1.1 K/mm3 (0.0-0.8) H 01/16/18 06:04 Eos # 0.0 K/mm3 (0.0-0.4) 01/16/18 06:04 Baso # 0.0 K/mm3 (0.0-0.1) 01/16/18 06:04 Add Manual Diff Complete 01/11/18 14:54 Total Counted 100 01/11/18 14:54 Seg Neutrophils % 83.2 % (40.0-70.0) H 01/16/18 06:04 Seg Neuts % (Manual) 74.0 % (40.0-70.0) H 01/11/18 14:54 Band Neutrophils % 0 % 01/11/18 14:54 Lymphocytes % (Manual) 8.0 % (13.4-35.0) L 01/11/18 14:54 Reactive Lymphs % (Man) 0 % 01/11/18 14:54 Monocytes % (Manual) 5.0 % (0.0-7.3) 01/11/18 14:54 Eosinophils % (Manual) 13.0 % (0.0-4.3) H 01/11/18 14:54 Basophils % (Manual) 0 % (0.0-1.8) 01/11/18 14:54 Metamyelocytes % 0 % 01/11/18 14:54 Myelocytes % 0 % 01/11/18 14:54 Promyelocytes % 0 % 01/11/18 14:54 Blast Cells % 0 % 01/11/18 14:54 Nucleated RBC % Not Reportable 01/11/18 14:54 Seg Neutrophils # 9.3 K/mm3 (1.8-7.7) H 01/16/18 06:04 Seg Neutrophils # Man 10.5 K/mm3 (1.8-7.7) H 01/11/18 14:54 Band Neutrophils # 0.0 K/mm3 01/11/18 14:54 Lymphocytes # (Manual) 1.1 K/mm3 (1.2-5.4) L 01/11/18 14:54 Abs React Lymphs (Man) 0.0 K/mm3 01/11/18 14:54 Monocytes # (Manual) 0.7 K/mm3 (0.0-0.8) 01/11/18 14:54 Eosinophils # (Manual) 1.8 K/mm3 (0.0-0.4) H 01/11/18 14:54 Basophils # (Manual) 0.0 K/mm3 (0.0-0.1) 01/11/18 14:54 Metamyelocytes # 0.0 K/mm3 01/11/18 14:54 Myelocytes # 0.0 K/mm3 01/11/18 14:54 Promyelocytes # 0.0 K/mm3 01/11/18 14:54 Blast Cells # 0.0 K/mm3 01/11/18 14:54 WBC Morphology Not Reportable 01/11/18 14:54 Hypersegmented Neuts Not Reportable 01/11/18 14:54 Hyposegmented Neuts Not Reportable 01/11/18 14:54 Hypogranular Neuts Not Reportable 01/11/18 14:54 Smudge Cells Not Reportable 01/11/18 14:54 Toxic Granulation Not Reportable 01/11/18 14:54 Toxic Vacuolation Not Reportable 01/11/18 14:54 Dohle Bodies Not Reportable 01/11/18 14:54 Pel[place]uet Anomaly Not Reportable 01/11/18 14:54 Afshin Rods Not Reportable 01/11/18 14:54 Platelet Estimate Consistent w auto 01/11/18 14:54 Clumped Platelets Not Reportable 01/11/18 14:54 Plt Clumps, EDTA Not Reportable 01/11/18 14:54 Large Platelets Not Reportable 01/11/18 14:54 Giant Platelets Not Reportable 01/11/18 14:54 Platelet Satelliting Not Reportable 01/11/18 14:54 Plt Morphology Comment Not Reportable 01/11/18 14:54 RBC Morphology Not Reportable 01/11/18 14:54 Dimorphic RBCs Not Reportable 01/11/18 14:54 Polychromasia Not Reportable 01/11/18 14:54 Hypochromasia Not Reportable 01/11/18 14:54 Poikilocytosis 1+ 01/11/18 14:54 Anisocytosis 1+ 01/11/18 14:54 Microcytosis Not Reportable 01/11/18 14:54 Macrocytosis Not Reportable 01/11/18 14:54 Spherocytes Not Reportable 01/11/18 14:54 Pappenheimer Bodies Not Reportable 01/11/18 14:54 Sickle Cells Not Reportable 01/11/18 14:54 Target Cells Not Reportable 01/11/18 14:54 Tear Drop Cells Not Reportable 01/11/18 14:54 Ovalocytes Not Reportable 01/11/18 14:54 Helmet Cells Not Reportable 01/11/18 14:54 [place] Bodies Not Reportable 01/11/18 14:54 [place] Not Reportable 01/11/18 14:54 [place] Cells Not Reportable 01/11/18 14:54 Bite Cells Not Reportable 01/11/18 14:54 Crenated Cell Not Reportable 01/11/18 14:54 Elliptocytes Not Reportable 01/11/18 14:54 Acanthocytes (Spur) Not Reportable 01/11/18 14:54 Rouleaux Not Reportable 01/11/18 14:54 Hemoglobin C Crystals Not Reportable 01/11/18 14:54 Schistocytes Not Reportable 01/11/18 14:54 Malaria parasites Not Reportable 01/11/18 14:54 Edil Bodies Not Reportable 01/11/18 14:54 Hem Pathologist Commnt No 01/11/18 14:54 PT 14.2 Sec. (12.2-14.9) 01/11/18 14:54 INR 1.05 (0.87-1.13) 01/11/18 14:54 D-Dimer > 11485 ng/mlDDU (0-234) H 01/11/18 14:54 Sodium 146 mmol/L (137-145) H 01/16/18 06:04 Potassium 4.2 mmol/L (3.6-5.0) 01/16/18 06:04 Chloride 110.5 mmol/L (98-107) H 01/16/18 06:04 Carbon Dioxide 23 mmol/L (22-30) 01/16/18 06:04 Anion Gap 17 mmol/L 01/16/18 06:04 BUN 21 mg/dL (7-17) H 01/16/18 06:04 Creatinine 0.7 mg/dL (0.7-1.2) 01/16/18 06:04 Estimated GFR > 60 ml/min 01/16/18 06:04 BUN/Creatinine Ratio 30 % 01/16/18 06:04 Glucose 112 mg/dL (65-100) H 01/16/18 06:04 Lactic Acid 1.50 mmol/L (0.7-2.0) 01/12/18 03:20 Calcium 9.7 mg/dL (8.4-10.2) 01/16/18 06:04 Phosphorus 3.40 mg/dL (2.5-4.5) 01/13/18 10:55 Magnesium 2.40 mg/dL (1.7-2.3) H 01/13/18 10:55 Total Bilirubin 0.20 mg/dL (0.1-1.2) 01/16/18 06:04 AST 19 units/L (5-40) 01/16/18 06:04 ALT 9 units/L (7-56) 01/16/18 06:04 Alkaline Phosphatase 121 units/L (35-129) 01/16/18 06:04 Total Creatine Kinase 51 units/L (30-135) 01/11/18 14:54 CK-MB (CK-2) 2.2 ng/mL (0.0-4.0) 01/11/18 14:54 CK-MB (CK-2) Rel Index 4.3 (0-4) H 01/11/18 14:54 Troponin T 0.021 ng/mL (0.00-0.029) 01/11/18 14:54 NT-Pro-B Natriuret Pep 775.8 pg/mL (0-900) 01/11/18 14:55 Total Protein 6.7 g/dL (6.3-8.2) 01/16/18 06:04 Albumin 2.7 g/dL (3.9-5) L 01/16/18 06:04 Albumin/Globulin Ratio 0.7 % 01/16/18 06:04 Urine Color Red (Yellow) 01/11/18 13:50 Urine Turbidity Clear (Clear) 01/11/18 13:50 Urine pH 6.0 (5.0-7.0) 01/11/18 13:50 Ur Specific [place] 1.003 (1.003-1.030) 01/11/18 13:50 Urine Protein <15 mg/dl mg/dL (Negative) 01/11/18 13:50 Urine Glucose (UA) Neg mg/dL (Negative) 01/11/18 13:50 Urine Ketones Neg mg/dL (Negative) 01/11/18 13:50 Urine Blood Sm (Negative) 01/11/18 13:50 Urine Nitrite Neg (Negative) 01/11/18 13:50 Urine Bilirubin Neg (Negative) 01/11/18 13:50 Urine Urobilinogen < 2.0 mg/dL (<2.0) 01/11/18 13:50 Ur Leukocyte Esterase Sm (Negative) 01/11/18 13:50 Urine WBC (Auto) 3.0 /HPF (0.0-6.0) 01/11/18 13:50 Urine RBC (Auto) 1.0 /HPF (0.0-6.0) 01/11/18 13:50 U Epithel Cells (Auto) 1.0 /HPF (0-13.0) 01/11/18 13:50 Urine Bacteria (Auto) 1+ /HPF (Negative) 01/11/18 13:50 Urine Mucus Few /HPF 01/11/18 13:50 HIV-1 RNA PCR copies/ml 98 Copies/mL H 01/13/18 10:55 HIV-1 RNA (PCR) log 1.99 Log cps/mL H 01/13/18 10:55 Miscellaneous Test Flexitest 1 01/13/18 09:37
--- NOTE | 2018-01-15 10:52 | Procedure Note ---
Date of procedure: 01/15/18 Pre-op diagnosis: Metastatic neoplasm Post-op diagnosis: same Procedure: Excisional biopsy of abdominal wall nodules. Consent had been obtained previously. Timeout was performed. Sterile prep and drape was done. 1% lidocaine was used to anesthetize a planned transverse incision. Skin was sharply incised. The nodules were sharply dissected from the surrounding area. The 1st nodule was slightly friable. This was consistent with a neoplastic type tissue. Once both specimens were removed, they were placed in a specimen cup with preservative solution. Hemostasis was achieved with electrocautery. Wound was irrigated and hemostasis was confirmed. Skin was closed with a 4-0 monocryl subcuticular stitch. Skin was cleaned and dried. Dermabond was placed. Patient tolerated the procedure well. There were no complications. The skin at the Bovie pad site was normal. Findings: 2 1cm soft, friable nodules that were attached to the surrounding tissue. Anesthesia: local Surgeon: SALOMÓN PEOPLES Estimated blood loss: minimal Pathology: list (2 nodules sent to pathology) Specimen disposition: to lab Condition: stable Disposition: floor
[2018-01-15] MEDS: FOLVITE PO SCH (11:58)
[2018-01-15] MEDS: BACTRIM DS PO SCH ×2 (11:58→14:22)
[2018-01-15] MEDS: ZITHROMAX PO SCH (11:59)
[2018-01-15] MEDS: HALFPRIN EC PO SCH (12:00)
[2018-01-15] MEDS: NORVASC PO SCH (12:00)
--- NOTE | 2018-01-15 13:11 | Consultation ---
History of Present Illness - Reason for Consult Consult date: 01/14/18 Past History Past Medical History: HIV/AIDS, hypertension, other (malnutrition) Past Surgical History: No surgical history, Other (reviewed) Social history: single Medications and Allergies Allergies Allergy/AdvReac Type Severity Reaction Status Date / Time No Known Allergies Allergy Unverified 01/11/18 14:17 Home Medications Medication Instructions Recorded Confirmed Last Taken Type Aspirin [Aspirin EC] 81 mg PO DAILY 01/11/18 01/11/18 Unknown History Dolutegravir Sodium [Tivicay] 50 mg PO DAILY 01/11/18 01/11/18 Unknown History Emtricitabine/Tenofov Alafenam 1 each PO DAILY 01/11/18 01/11/18 Unknown History [Descovy 200-25 mg Tablet] Ergocalciferol [Vitamin D2] 1 cap PO QWEEK 01/11/18 01/11/18 Unknown History Folic Acid [Folvite] 1 mg PO QDAY 01/11/18 01/11/18 Unknown History Rosuvastatin Calcium [Crestor] 40 mg PO QHS 01/11/18 01/11/18 Unknown History Sulfamethoxazole/Trimethoprim 1 each PO DAILY 01/11/18 01/11/18 Unknown History [Bactrim DS TAB] amLODIPine [Norvasc] 10 mg PO DAILY 01/11/18 01/11/18 Unknown History Active Meds: Active Medications Acetaminophen (Tylenol) 650 mg PO Q4H PRN PRN Reason: Pain MILD(1-3)/Fever >100.5/VEE Last Admin: 01/13/18 09:45 Dose: 650 mg Acetaminophen/Hydrocodone Bitart ([place] 5/325) 1 each PO Q4H PRN PRN Reason: Pain, Moderate (4-6) Last Admin: 01/15/18 07:11 Dose: 1 each Albuterol (Proventil) 2.5 mg IH Q4HRT PRN PRN Reason: Shortness Of Breath Albuterol/Ipratropium (Duoneb *Not For Prn Use*) 1 ampul IH Q6HRT [facility] Last Admin: 01/15/18 08:19 Dose: 1 ampul Amlodipine Besylate (Norvasc) 10 mg PO DAILY [facility] Last Admin: 01/15/18 12:00 Dose: 10 mg Aspirin (Halfprin Ec) 81 mg PO DAILY [facility] Last Admin: 01/15/18 12:00 Dose: 81 mg Atorvastatin Calcium (Lipitor) 40 mg PO QHS [facility] Last Admin: 01/14/18 23:55 Dose: 40 mg Azithromycin (Zithromax) 500 mg PO QDAY [facility] Last Admin: 01/15/18 11:59 Dose: 500 mg Ergocalciferol (Vitamin D2) 50,000 unit PO Mo MAICOL Folic Acid (Folvite) 1 mg PO QDAY [facility] Last Admin: 01/15/18 11:58 Dose: 1 mg Ceftriaxone Sodium 1 gm/ (Sodium Chloride) 20 mls @ 2 mls/min IV Q24HR [facility] Last Admin: 01/14/18 10:43 Dose: 2 mls/min Dextrose (D5w) 1,000 mls @ 100 mls/hr IV DIRECT MAICOL Lactated Ringer's (Lactated Ringers) 1,000 mls @ 42 mls/hr IV DIRECT [facility] Last Admin: 01/15/18 01:36 Dose: 42 mls/hr Methylprednisolone Sodium Succinate (Solu-Medrol) 40 mg IV Q8HR [facility] Last Admin: 01/15/18 07:11 Dose: 40 mg Miscellaneous Medication (Emtricitabine/Tenofov Alafenam [Descovy 200-25 Mg Tablet]) 1 each PO DAILY [facility] Last Admin: 01/13/18 09:46 Dose: 1 each Ondansetron HCl (Zofran) 4 mg IV Q8H PRN PRN Reason: Nausea And Vomiting Last Admin: 01/13/18 03:49 Dose: 4 mg Sodium Chloride (Sodium Chloride Flush Syringe 10 Ml) 10 ml IV BID [facility] Last Admin: 01/15/18 11:59 Dose: 10 ml Sodium Chloride (Sodium Chloride Flush Syringe 10 Ml) 10 ml IV PRN PRN PRN Reason: LINE FLUSH Last Admin: 01/13/18 06:17 Dose: 10 ml Trimethoprim/Sulfamethoxazole (Bactrim Ds) 1 each PO DAILY [facility] Last Admin: 01/15/18 11:58 Dose: 1 each Exam - Constitutional Vitals: Temp Pulse Resp BP Pulse Ox 97.5 F L 102 H 16 112/85 98 01/15/18 12:06 01/15/18 12:06 01/15/18 12:06 01/15/18 12:06 01/15/18 12:06 Results - Labs CBC & Chem 7: 01/15/18 08:05 01/15/18 08:05 Labs: Abnormal lab results 01/15/18 01/15/18 Range/Units 08:05 08:05 MCV 76 L (79-97) fl MCH 24 L (28-32) pg RDW 16.6 H (13.2-15.2) % Plt Count 115 L (140-440) K/mm3 Sodium 149 H (137-145) mmol/L Chloride 113.4 H (98-107) mmol/L Creatinine 0.5 L (0.7-1.2) mg/dL Glucose 106 H (65-100) mg/dL Assessment and Plan DEO HYDRO MET LUNG CA HIV - Cr nl - NRS w/ lasix - disc w/ pt opts obs vs neph tube vs stent; option cysto rpg eval; risks of ca ; likely secondary to above - f/u outpt - TA
[2018-01-15] MEDS: TIVICAY (NF) PO SCH (14:21)
[2018-01-15] MEDS: NON-FORMULARY (Emtricitabine/Tenofov Alafenam [Descovy 200-25 Mg Tablet] 1 EACH) PO SCH (14:21)
[2018-01-15] MEDS: cefTRIAXone 1 GM in NACL 0.9% 20 ML IV SCH (14:21)
[2018-01-15 19:08] LABS: HIV-1 RNA QN PCR 1.99 Log cps/mL
--- NOTE | 2018-01-15 19:55 | Progress Note ---
Assessment and Plan Patient resting on 2 litres O2. No acute respiratory distress.O2 saturation 95%. - Patient Problems (1) Pulmonary nodules/lesions, multiple Current Visit: Yes Status: Acute Plan to address problem: Some of the lesions are peripheral. Recommend percutaneous needle biopsy of peripheral lung lesions by interventional radiology. (2) Generalized subcutaneous nodules Current Visit: Yes Status: Acute Plan to address problem: Surgery consulted to get biopsy of subcutaneous lesions. (3) HIV (human immunodeficiency virus infection) Current Visit: Yes Status: Acute Plan to address problem: Management as per infectious diseases. Subjective Date of service: 01/15/18 Principal diagnosis: Abnormal CT Chest; Lung Masses; HIV positive Interval history: Patient resting on 2 litres O2. No acute respiratory distress.O2 saturation 95%. Objective Vital Signs - 12hr 01/15/18 01/15/18 01/15/18 08:19 08:29 10:28 Temperature Pulse Rate Pulse Rate [ 93 H 105 H Bilateral Throughout] Pulse Rate [ 116 H From Monitor] Respiratory 16 Rate Respiratory 18 189 H Rate [Bilateral Throughout] Blood Pressure Blood Pressure [Left] O2 Sat by Pulse Oximetry 01/15/18 01/15/18 01/15/18 11:39 12:06 14:53 Temperature 97.6 F 97.5 F L Pulse Rate 102 H 102 H Pulse Rate [ 98 H Bilateral Throughout] Pulse Rate [ From Monitor] Respiratory 18 16 Rate Respiratory 18 Rate [Bilateral Throughout] Blood Pressure 134/95 Blood Pressure 112/85 [Left] O2 Sat by Pulse 96 98 Oximetry 01/15/18 01/15/18 01/15/18 15:07 16:09 16:10 Temperature 97.8 F 97.8 F Pulse Rate 106 H 105 H Pulse Rate [ 110 H Bilateral Throughout] Pulse Rate [ From Monitor] Respiratory 18 18 Rate Respiratory 18 Rate [Bilateral Throughout] Blood Pressure 124/88 Blood Pressure [Left] O2 Sat by Pulse 93 95 Oximetry Constitutional: no acute distress, alert, other (looks chronically ill) Eyes: non-icteric ENT: oropharynx moist, other (no thyromegaly) Neck: supple, lymphadenopathy, no JVD Effort: mildly labored Ascultation: Bilateral: diminished breath sounds, rales (scant ) Percussion: Bilateral: not dull Cardiovascular: regular rate and rhythm, other (no rubs or murmurs) Gastrointestinal: normoactive bowel sounds, soft, non-tender, non-distended, other (no palpable HSM) Integumentary: other (poor turgor) Extremities: no cyanosis, no edema, pink and warm, pulses normal Neurologic: normal mental status, non-focal exam, pupils equal and round, CN II- XII normal Psychiatric: mood appropriate, affect normal CBC and BMP: 01/15/18 08:05 01/15/18 08:05 ABG, PT/INR, D-dimer: PT/INR, D-dimer PT 14.2 Sec. (12.2-14.9) 01/11/18 14:54 INR 1.05 (0.87-1.13) 01/11/18 14:54 D-Dimer > 49236 ng/mlDDU (0-234) H 01/11/18 14:54 Abnormal lab findings: Abnormal Labs 01/11/18 01/11/18 01/11/18 14:54 14:54 14:54 WBC 14.2 H RBC 5.35 H Hct 43.0 H MCV MCH 23 L MCHC 29 L RDW 17.9 H Plt Count Lymph % (Auto) Lymph # [place] # Seg Neutrophils % Seg Neuts % (Manual) 74.0 H Lymphocytes % (Manual) 8.0 L Eosinophils % (Manual) 13.0 H Seg Neutrophils # Seg Neutrophils # Man 10.5 H Lymphocytes # (Manual) 1.1 L Eosinophils # (Manual) 1.8 H D-Dimer > 90438 H Sodium Chloride Carbon Dioxide 20 L Creatinine 0.5 L Glucose Lactic Acid Magnesium 2.60 H CK-MB (CK-2) Rel Index 4.3 H Albumin 2.7 L HIV-1 RNA PCR copies/ml HIV-1 RNA (PCR) log 01/11/18 01/11/18 01/11/18 15:19 20:49 21:42 WBC RBC Hct MCV MCH MCHC RDW Plt Count Lymph % (Auto) Lymph # [place] # Seg Neutrophils % Seg Neuts % (Manual) Lymphocytes % (Manual) Eosinophils % (Manual) Seg Neutrophils # Seg Neutrophils # Man Lymphocytes # (Manual) Eosinophils # (Manual) D-Dimer Sodium Chloride Carbon Dioxide Creatinine Glucose Lactic Acid 3.20 H* 3.70 H* 4.00 H* Magnesium CK-MB (CK-2) Rel Index Albumin HIV-1 RNA PCR copies/ml HIV-1 RNA (PCR) log 01/13/18 01/13/18 01/13/18 10:55 10:55 12:28 WBC 14.4 H RBC Hct MCV 77 L MCH 24 L MCHC RDW 16.6 H Plt Count Lymph % (Auto) 4.4 L Lymph # 0.6 L [place] # 0.9 H Seg Neutrophils % 88.4 H Seg Neuts % (Manual) Lymphocytes % (Manual) Eosinophils % (Manual) Seg Neutrophils # 12.7 H Seg Neutrophils # Man Lymphocytes # (Manual) Eosinophils # (Manual) D-Dimer Sodium 154 H D Chloride 118.7 H Carbon Dioxide 20 L Creatinine 0.5 L Glucose 208 H Lactic Acid Magnesium 2.40 H CK-MB (CK-2) Rel Index Albumin HIV-1 RNA PCR copies/ml 98 H HIV-1 RNA (PCR) log 1.99 H 01/14/18 01/14/18 01/15/18 07:28 07:28 08:05 WBC 11.2 H RBC Hct MCV 76 L 76 L MCH 24 L 24 L MCHC RDW 16.5 H 16.6 H Plt Count 137 L 115 L Lymph % (Auto) Lymph # [place] # Seg Neutrophils % Seg Neuts % (Manual) Lymphocytes % (Manual) Eosinophils % (Manual) Seg Neutrophils # Seg Neutrophils # Man Lymphocytes # (Manual) Eosinophils # (Manual) D-Dimer Sodium 155 H Chloride 120.3 H Carbon Dioxide Creatinine 0.4 L Glucose 111 H Lactic Acid Magnesium CK-MB (CK-2) Rel Index Albumin HIV-1 RNA PCR copies/ml HIV-1 RNA (PCR) log 01/15/18 08:05 WBC RBC Hct MCV MCH MCHC RDW Plt Count Lymph % (Auto) Lymph # [place] # Seg Neutrophils % Seg Neuts % (Manual) Lymphocytes % (Manual) Eosinophils % (Manual) Seg Neutrophils # Seg Neutrophils # Man Lymphocytes # (Manual) Eosinophils # (Manual) D-Dimer Sodium 149 H Chloride 113.4 H Carbon Dioxide Creatinine 0.5 L Glucose 106 H Lactic Acid Magnesium CK-MB (CK-2) Rel Index Albumin HIV-1 RNA PCR copies/ml HIV-1 RNA (PCR) log
[2018-01-16] MEDS: LACTATED RINGERS 1,000 ML IV SCH ×2 (00:35→23:11)
[2018-01-16] MEDS: SODIUM CHLORIDE FLUSH SYRINGE 10 ML IV SCH ×4 (00:37→22:29)
[2018-01-16 06:16] LABS: Basophils % (Auto) 0.4 % (0.0-1.8); Eosinophils % (Auto) 0.2 % (0.0-4.3); Hematocrit 33.3 % (30.3-42.9); Hemoglobin 10.6 gm/dl (10.1-14.3); Lymphocytes # (Auto) 0.7 K/mm3 (1.2-5.4); Lymphocytes % (Auto) 6.5 % (13.4-35.0); Mean Corpuscular HGB Conc 32 % (30-34); Mean Corpuscular Volume 76 fl (79-97); Monocytes # (Auto) 1.1 K/mm3 (0.0-0.8); Monocytes % (Auto) 9.7 % (0.0-7.3); Platelet Count 110 K/mm3 (140-440); Red Cell Distribution Width 16.8 % (13.2-15.2)
[2018-01-16 06:23] LABS: Mean Corpuscular Hemoglobin 24 pg (28-32)
[2018-01-16 06:39] LABS: Alanine Aminotransferase 9 units/L (7-56); Albumin 2.7 g/dL (3.9-5); BUN/Creatinine Ratio 30; Blood Urea Nitrogen 21 mg/dL (7-17); Calcium 9.7 mg/dL (8.4-10.2); Hemolysis Index 5
[2018-01-16] MEDS: NORCO 5/325 PO PRN ×2 (06:50→19:33)
[2018-01-16] MEDS: NON-FORMULARY (Emtricitabine/Tenofov Alafenam [Descovy 200-25 Mg Tablet] 1 EACH) PO SCH ×2 (08:00→09:27)
[2018-01-16] MEDS: TIVICAY (NF) PO SCH ×2 (08:01→09:26)
[2018-01-16] MEDS: FOLVITE PO SCH ×2 (08:01→09:28)
[2018-01-16] MEDS: HALFPRIN EC PO SCH ×2 (08:01→09:28)
[2018-01-16] MEDS: NORVASC PO SCH ×2 (08:01→09:28)
[2018-01-16] MEDS: ZITHROMAX PO SCH ×2 (08:01→09:32)
[2018-01-16] MEDS: DUONEB *Not for PRN Use IH SCH ×3 (09:14→19:48)
[2018-01-16] MEDS: BACTRIM DS PO SCH (09:28)
[2018-01-16] MEDS: cefTRIAXone 1 GM in NACL 0.9% 20 ML IV SCH (09:33)
--- NOTE | 2018-01-16 09:42 | Progress Note ---
Assessment and Plan Assessment and plan: Metastatic lung cancer on CT chest Oxygen, nebulizers, supportive care, pulmonary consultation, oncology following- s/p Excisional biopsy of abdominal wall nodule yesterday, sent to path HIV/AIDS; wasting syndrome ID following Sepsis; secondary to pneumonia, community-acquired Continue IV antibiotics, follow cultures, pulmonary consult, Leukocytosis trending down. Lactic acidosis resolved. Lactic acidosis secondary to sepsis, resolved Cachexia/Severe protein malnutrition Manager Unit consulted Hypernatremia Improving, continue D5W . Bilateral hydronephrosis Patient's kidney function is within normal limits, urology consulted, pt to f/u OP Polysubstance abuse Crack, cocaine, tobacco, Patient counseled on cessation Suspected TB Patient on airborne isolation until TB workup is completed. History Interval history: Less shortness of breath, No fever Poor appetite Hospitalist Physical - Physical exam Narrative exam: Gen appearance: Not in acute distress, lying in bed,cachectic HEENT:Normocephalic, atraumatic Neck:supple, no JVD Lungs: Clear to auscultation bilaterally, no crackles , no wheeze Heart: S1 and S2 regular, no murmurs, rubs or gallop Abdomen: soft, non tender, multiple subcutanous lesions slkin abdomen, trunk, normal bowel sounds Ext: No edema, no clubbing, no cyanosis. Neuro: Awake, alert, oriented x 3. Moves all ext, no focal signs Psych:Normal mood - Constitutional Vitals: Temp Pulse Resp BP Pulse Ox 98.4 F 102 H 20 112/83 95 01/16/18 08:13 01/16/18 09:30 01/16/18 09:30 01/16/18 08:13 01/16/18 09:16 General appearance: Present: no acute distress, cachectic, disheveled Results - Labs CBC & Chem 7: 01/16/18 06:04 01/16/18 06:04 Labs: Laboratory Last Values WBC 11.2 K/mm3 (4.5-11.0) H 01/16/18 06:04 RBC 4.40 M/mm3 (3.65-5.03) 01/16/18 06:04 Hgb 10.6 gm/dl (10.1-14.3) 01/16/18 06:04 Hct 33.3 % (30.3-42.9) 01/16/18 06:04 MCV 76 fl (79-97) L 01/16/18 06:04 MCH 24 pg (28-32) L 01/16/18 06:04 MCHC 32 % (30-34) 01/16/18 06:04 RDW 16.8 % (13.2-15.2) H 01/16/18 06:04 Plt Count 110 K/mm3 (140-440) L 01/16/18 06:04 Lymph % (Auto) 6.5 % (13.4-35.0) L 01/16/18 06:04 [place] % (Auto) 9.7 % (0.0-7.3) H 01/16/18 06:04 Eos % (Auto) 0.2 % (0.0-4.3) 01/16/18 06:04 Baso % (Auto) 0.4 % (0.0-1.8) 01/16/18 06:04 Lymph # 0.7 K/mm3 (1.2-5.4) L 01/16/18 06:04 [place] # 1.1 K/mm3 (0.0-0.8) H 01/16/18 06:04 Eos # 0.0 K/mm3 (0.0-0.4) 01/16/18 06:04 Baso # 0.0 K/mm3 (0.0-0.1) 01/16/18 06:04 Add Manual Diff Complete 01/11/18 14:54 Total Counted 100 01/11/18 14:54 Seg Neutrophils % 83.2 % (40.0-70.0) H 01/16/18 06:04 Seg Neuts % (Manual) 74.0 % (40.0-70.0) H 01/11/18 14:54 Band Neutrophils % 0 % 01/11/18 14:54 Lymphocytes % (Manual) 8.0 % (13.4-35.0) L 01/11/18 14:54 Reactive Lymphs % (Man) 0 % 01/11/18 14:54 Monocytes % (Manual) 5.0 % (0.0-7.3) 01/11/18 14:54 Eosinophils % (Manual) 13.0 % (0.0-4.3) H 01/11/18 14:54 Basophils % (Manual) 0 % (0.0-1.8) 01/11/18 14:54 Metamyelocytes % 0 % 01/11/18 14:54 Myelocytes % 0 % 01/11/18 14:54 Promyelocytes % 0 % 01/11/18 14:54 Blast Cells % 0 % 01/11/18 14:54 Nucleated RBC % Not Reportable 01/11/18 14:54 Seg Neutrophils # 9.3 K/mm3 (1.8-7.7) H 01/16/18 06:04 Seg Neutrophils # Man 10.5 K/mm3 (1.8-7.7) H 01/11/18 14:54 Band Neutrophils # 0.0 K/mm3 01/11/18 14:54 Lymphocytes # (Manual) 1.1 K/mm3 (1.2-5.4) L 01/11/18 14:54 Abs React Lymphs (Man) 0.0 K/mm3 01/11/18 14:54 Monocytes # (Manual) 0.7 K/mm3 (0.0-0.8) 01/11/18 14:54 Eosinophils # (Manual) 1.8 K/mm3 (0.0-0.4) H 01/11/18 14:54 Basophils # (Manual) 0.0 K/mm3 (0.0-0.1) 01/11/18 14:54 Metamyelocytes # 0.0 K/mm3 01/11/18 14:54 Myelocytes # 0.0 K/mm3 01/11/18 14:54 Promyelocytes # 0.0 K/mm3 01/11/18 14:54 Blast Cells # 0.0 K/mm3 01/11/18 14:54 WBC Morphology Not Reportable 01/11/18 14:54 Hypersegmented Neuts Not Reportable 01/11/18 14:54 Hyposegmented Neuts Not Reportable 01/11/18 14:54 Hypogranular Neuts Not Reportable 01/11/18 14:54 Smudge Cells Not Reportable 01/11/18 14:54 Toxic Granulation Not Reportable 01/11/18 14:54 Toxic Vacuolation Not Reportable 01/11/18 14:54 Dohle Bodies Not Reportable 01/11/18 14:54 Pelger-Huet Anomaly Not Reportable 01/11/18 14:54 Afshin Rods Not Reportable 01/11/18 14:54 Platelet Estimate Consistent w auto 01/11/18 14:54 Clumped Platelets Not Reportable 01/11/18 14:54 Plt Clumps, EDTA Not Reportable 01/11/18 14:54 Large Platelets Not Reportable 01/11/18 14:54 Giant Platelets Not Reportable 01/11/18 14:54 Platelet Satelliting Not Reportable 01/11/18 14:54 Plt Morphology Comment Not Reportable 01/11/18 14:54 RBC Morphology Not Reportable 01/11/18 14:54 Dimorphic RBCs Not Reportable 01/11/18 14:54 Polychromasia Not Reportable 01/11/18 14:54 Hypochromasia Not Reportable 01/11/18 14:54 Poikilocytosis 1+ 01/11/18 14:54 Anisocytosis 1+ 01/11/18 14:54 Microcytosis Not Reportable 01/11/18 14:54 Macrocytosis Not Reportable 01/11/18 14:54 Spherocytes Not Reportable 01/11/18 14:54 Pappenheimer Bodies Not Reportable 01/11/18 14:54 Sickle Cells Not Reportable 01/11/18 14:54 Target Cells Not Reportable 01/11/18 14:54 Tear Drop Cells Not Reportable 01/11/18 14:54 Ovalocytes Not Reportable 01/11/18 14:54 Helmet Cells Not Reportable 01/11/18 14:54 [place]-Waucoma Bodies Not Reportable 01/11/18 14:54 [place] Rings Not Reportable 01/11/18 14:54 Miki Cells Not Reportable 01/11/18 14:54 Bite Cells Not Reportable 01/11/18 14:54 Crenated Cell Not Reportable 01/11/18 14:54 Elliptocytes Not Reportable 01/11/18 14:54 Acanthocytes (Spur) Not Reportable 01/11/18 14:54 Rouleaux Not Reportable 01/11/18 14:54 Hemoglobin C Crystals Not Reportable 01/11/18 14:54 Schistocytes Not Reportable 01/11/18 14:54 Malaria parasites Not Reportable 01/11/18 14:54 Edil Bodies Not Reportable 01/11/18 14:54 Hem Pathologist Commnt No 01/11/18 14:54 PT 14.2 Sec. (12.2-14.9) 01/11/18 14:54 INR 1.05 (0.87-1.13) 01/11/18 14:54 D-Dimer > 81956 ng/mlDDU (0-234) H 01/11/18 14:54 Sodium 146 mmol/L (137-145) H 01/16/18 06:04 Potassium 4.2 mmol/L (3.6-5.0) 01/16/18 06:04 Chloride 110.5 mmol/L (98-107) H 01/16/18 06:04 Carbon Dioxide 23 mmol/L (22-30) 01/16/18 06:04 Anion Gap 17 mmol/L 01/16/18 06:04 BUN 21 mg/dL (7-17) H 01/16/18 06:04 Creatinine 0.7 mg/dL (0.7-1.2) 01/16/18 06:04 Estimated GFR > 60 ml/min 01/16/18 06:04 BUN/Creatinine Ratio 30 % 01/16/18 06:04 Glucose 112 mg/dL (65-100) H 01/16/18 06:04 Lactic Acid 1.50 mmol/L (0.7-2.0) 01/12/18 03:20 Calcium 9.7 mg/dL (8.4-10.2) 01/16/18 06:04 Phosphorus 3.40 mg/dL (2.5-4.5) 01/13/18 10:55 Magnesium 2.40 mg/dL (1.7-2.3) H 01/13/18 10:55 Total Bilirubin 0.20 mg/dL (0.1-1.2) 01/16/18 06:04 AST 19 units/L (5-40) 01/16/18 06:04 ALT 9 units/L (7-56) 01/16/18 06:04 Alkaline Phosphatase 121 units/L (35-129) 01/16/18 06:04 Total Creatine Kinase 51 units/L (30-135) 01/11/18 14:54 CK-MB (CK-2) 2.2 ng/mL (0.0-4.0) 01/11/18 14:54 CK-MB (CK-2) Rel Index 4.3 (0-4) H 01/11/18 14:54 Troponin T 0.021 ng/mL (0.00-0.029) 01/11/18 14:54 NT-Pro-B Natriuret Pep 775.8 pg/mL (0-900) 01/11/18 14:55 Total Protein 6.7 g/dL (6.3-8.2) 01/16/18 06:04 Albumin 2.7 g/dL (3.9-5) L 01/16/18 06:04 Albumin/Globulin Ratio 0.7 % 01/16/18 06:04 Urine Color Red (Yellow) 01/11/18 13:50 Urine Turbidity Clear (Clear) 01/11/18 13:50 Urine pH 6.0 (5.0-7.0) 01/11/18 13:50 Ur Specific [place] 1.003 (1.003-1.030) 01/11/18 13:50 Urine Protein <15 mg/dl mg/dL (Negative) 01/11/18 13:50 Urine Glucose (UA) Neg mg/dL (Negative) 01/11/18 13:50 Urine Ketones Neg mg/dL (Negative) 01/11/18 13:50 Urine Blood Sm (Negative) 01/11/18 13:50 Urine Nitrite Neg (Negative) 01/11/18 13:50 Urine Bilirubin Neg (Negative) 01/11/18 13:50 Urine Urobilinogen < 2.0 mg/dL (<2.0) 01/11/18 13:50 Ur Leukocyte Esterase Sm (Negative) 01/11/18 13:50 Urine WBC (Auto) 3.0 /HPF (0.0-6.0) 01/11/18 13:50 Urine RBC (Auto) 1.0 /HPF (0.0-6.0) 01/11/18 13:50 U Epithel Cells (Auto) 1.0 /HPF (0-13.0) 01/11/18 13:50 Urine Bacteria (Auto) 1+ /HPF (Negative) 01/11/18 13:50 Urine Mucus Few /HPF 01/11/18 13:50 HIV-1 RNA PCR copies/ml 98 Copies/mL H 01/13/18 10:55 HIV-1 RNA (PCR) log 1.99 Log cps/mL H 01/13/18 10:55 Miscellaneous Test Flexitest 1 01/13/18 09:37
--- NOTE | 2018-01-16 15:17 | Progress Note ---
Assessment and Plan - Patient Problems (1) Generalized subcutaneous nodules Current Visit: Yes Status: Acute Plan to address problem: Patient stable. Pathology results. Routine wound care. Please call if there any questions. Dermabond will come off in 1 to 2 weeks. Subjective Date of service: 01/16/18 Patient Reports: Positive: no new complaints, other (denies pain at biopsy site) Objective Vital Signs - 12hr 01/16/18 01/16/18 01/16/18 04:16 08:13 09:14 Temperature 98.1 F 98.4 F Pulse Rate 98 H 97 H Pulse Rate [ 102 H Bilateral Throughout] Respiratory 18 20 Rate Respiratory 18 Rate [Bilateral Throughout] Blood Pressure 118/86 112/83 O2 Sat by Pulse 97 96 Oximetry 01/16/18 01/16/18 01/16/18 09:16 09:30 14:47 Temperature Pulse Rate Pulse Rate [ 102 H 98 H Bilateral Throughout] Respiratory Rate Respiratory 20 18 Rate [Bilateral Throughout] Blood Pressure O2 Sat by Pulse 95 Oximetry 01/16/18 14:57 Temperature Pulse Rate Pulse Rate [ 98 H Bilateral Throughout] Respiratory Rate Respiratory 18 Rate [Bilateral Throughout] Blood Pressure O2 Sat by Pulse Oximetry - General physical appearance no distress, no pain - Respiratory normal expansion, normal respiratory effort - Integumentary other (incision clear, dry, intact. Faint ecchymosis can be seen in the periphery. [place] seen with a 3 cm radius.) - Labs 01/16/18 06:04 01/16/18 06:04 Diabetes panel 01/16/18 Range/Units 06:04 Sodium 146 H (137-145) mmol/L Potassium 4.2 (3.6-5.0) mmol/L Chloride 110.5 H (98-107) mmol/L Carbon Dioxide 23 (22-30) mmol/L BUN 21 H (7-17) mg/dL Creatinine 0.7 (0.7-1.2) mg/dL Glucose 112 H (65-100) mg/dL Calcium 9.7 (8.4-10.2) mg/dL AST 19 (5-40) units/L ALT 9 (7-56) units/L Alkaline Phosphatase 121 (35-129) units/L Total Protein 6.7 (6.3-8.2) g/dL Albumin 2.7 L (3.9-5) g/dL Calcium panel 01/16/18 Range/Units 06:04 Calcium 9.7 (8.4-10.2) mg/dL Albumin 2.7 L (3.9-5) g/dL Pituitary panel 01/16/18 Range/Units 06:04 Sodium 146 H (137-145) mmol/L Potassium 4.2 (3.6-5.0) mmol/L Chloride 110.5 H (98-107) mmol/L Carbon Dioxide 23 (22-30) mmol/L BUN 21 H (7-17) mg/dL Creatinine 0.7 (0.7-1.2) mg/dL Glucose 112 H (65-100) mg/dL Calcium 9.7 (8.4-10.2) mg/dL Adrenal panel 01/16/18 Range/Units 06:04 Sodium 146 H (137-145) mmol/L Potassium 4.2 (3.6-5.0) mmol/L Chloride 110.5 H (98-107) mmol/L Carbon Dioxide 23 (22-30) mmol/L BUN 21 H (7-17) mg/dL Creatinine 0.7 (0.7-1.2) mg/dL Glucose 112 H (65-100) mg/dL Calcium 9.7 (8.4-10.2) mg/dL Total Bilirubin 0.20 (0.1-1.2) mg/dL AST 19 (5-40) units/L ALT 9 (7-56) units/L Alkaline Phosphatase 121 (35-129) units/L Total Protein 6.7 (6.3-8.2) g/dL Albumin 2.7 L (3.9-5) g/dL
--- NOTE | 2018-01-16 18:04 | Hem/Onc Progress Note ---
Assessment and Plan 1. SQ nodules- recent biopsy, pathology pending 2. microcytic anemia- checking iron studies 3. thrombocytopenia- may be related to myelosuppression from HIV, check B12, folate Subjective Date of service: 01/16/18 Interval history: feeling well, just ate dinner, denies pain Objective - Constitutional Vitals: Last Vital Signs Temp 98.4 F 01/16/18 08:13 Pulse 98 H 01/16/18 14:57 Resp 18 01/16/18 14:57 BP 112/83 01/16/18 08:13 Pulse Ox 95 01/16/18 09:16 General appearance: no acute distress, cachectic - Neck Neck: supple - Respiratory Respiratory effort: Positive: normal Respiratory: bilateral: CTA - Cardiovascular Rhythm: regular - Additional findings Additional findings: diffuse SQ nodules - Labs Lab Results: Laboratory Results - last 24 hr 01/13/18 01/13/18 01/16/18 09:37 10:55 06:04 WBC 11.2 H RBC 4.40 Hgb 10.6 Hct 33.3 MCV 76 L MCH 24 L MCHC 32 RDW 16.8 H Plt Count 110 L Lymph % (Auto) 6.5 L [place] % (Auto) 9.7 H Eos % (Auto) 0.2 Baso % (Auto) 0.4 Lymph # 0.7 L [place] # 1.1 H Eos # 0.0 Baso # 0.0 Seg Neutrophils % 83.2 H Seg Neutrophils # 9.3 H Sodium Potassium Chloride Carbon Dioxide Anion Gap BUN Creatinine Estimated GFR BUN/Creatinine Ratio Glucose POC Glucose Calcium Total Bilirubin AST ALT Alkaline Phosphatase Total Protein Albumin Albumin/Globulin Ratio HIV-1 RNA PCR copies/ml 98 H HIV-1 RNA (PCR) log 1.99 H Miscellaneous Test Flexitest 1 01/16/18 01/16/18 06:04 17:21 WBC RBC Hgb Hct MCV MCH MCHC RDW Plt Count Lymph % (Auto) [place] % (Auto) Eos % (Auto) Baso % (Auto) Lymph # [place] # Eos # Baso # Seg Neutrophils % Seg Neutrophils # Sodium 146 H Potassium 4.2 Chloride 110.5 H Carbon Dioxide 23 Anion Gap 17 BUN 21 H Creatinine 0.7 Estimated GFR > 60 BUN/Creatinine Ratio 30 Glucose 112 H POC Glucose 232 H Calcium 9.7 Total Bilirubin 0.20 AST 19 ALT 9 Alkaline Phosphatase 121 Total Protein 6.7 Albumin 2.7 L Albumin/Globulin Ratio 0.7 HIV-1 RNA PCR copies/ml HIV-1 RNA (PCR) log Miscellaneous Test
[2018-01-16 19:25] LABS: Iron 37 ug/dL (37-170); Total Iron Binding Capacity 239 mcg/dL (250-450)
[2018-01-16 20:12] LABS: CD4/CD8 Ratio 0.36 (0.86-5.00)
--- NOTE | 2018-01-16 22:23 | Progress Note ---
Assessment and Plan Patient resting on 2 litres O2. No acute respiratory distress.O2 saturation 95% .Patient undergone excision of abdominal wall nodule. Pathology results still pending - Patient Problems (1) Pulmonary nodules/lesions, multiple Current Visit: Yes Status: Acute Plan to address problem: If subcutaneous nodule biopsy is non diagnostic, Recommend percutaneous needle biopsy of peripheral lung lesions by interventional radiology. (2) Generalized subcutaneous nodules Current Visit: Yes Status: Acute Plan to address problem: atient undergone excision of abdominal wall nodule. Pathology results still pending (3) HIV (human immunodeficiency virus infection) Current Visit: Yes Status: Acute Subjective Date of service: 01/16/18 Principal diagnosis: Abnormal CT Chest; Lung Masses; HIV positive Interval history: Patient resting on 2 litres O2. No acute respiratory distress.O2 saturation 95% .Patient undergone excision of abdominal wall nodule. Pathology results still pending Objective Vital Signs - 12hr 01/16/18 01/16/18 01/16/18 14:47 14:57 15:54 Temperature 97.5 F L Pulse Rate 101 H Pulse Rate [ 98 H 98 H Bilateral Throughout] Respiratory 14 Rate Respiratory 18 18 Rate [Bilateral Throughout] Blood Pressure 123/85 O2 Sat by Pulse 96 Oximetry 01/16/18 01/16/18 01/16/18 19:30 19:33 19:37 Temperature Pulse Rate 102 H Pulse Rate [ Bilateral Throughout] Respiratory 20 20 21 Rate Respiratory Rate [Bilateral Throughout] Blood Pressure O2 Sat by Pulse 97 97 Oximetry 01/16/18 01/16/18 01/16/18 19:48 19:49 19:59 Temperature Pulse Rate Pulse Rate [ 107 H 109 H Bilateral Throughout] Respiratory Rate Respiratory 15 16 Rate [Bilateral Throughout] Blood Pressure O2 Sat by Pulse 100 Oximetry 01/16/18 20:18 Temperature 98.1 F Pulse Rate 101 H Pulse Rate [ Bilateral Throughout] Respiratory 20 Rate Respiratory Rate [Bilateral Throughout] Blood Pressure 129/86 O2 Sat by Pulse 95 Oximetry Constitutional: no acute distress, alert, other (looks chronically ill) Eyes: non-icteric ENT: oropharynx moist, other (no thyromegaly) Neck: supple, lymphadenopathy, no JVD Effort: mildly labored Ascultation: Bilateral: diminished breath sounds, rales (scant ) Percussion: Bilateral: not dull Cardiovascular: regular rate and rhythm, other (no rubs or murmurs) Gastrointestinal: normoactive bowel sounds, soft, non-tender, non-distended, other (no palpable HSM) Integumentary: other (poor turgor) Extremities: no cyanosis, no edema, pink and warm, pulses normal Neurologic: normal mental status, non-focal exam, pupils equal and round, CN II- XII normal Psychiatric: mood appropriate, affect normal CBC and BMP: 01/16/18 06:04 01/16/18 06:04 ABG, PT/INR, D-dimer: PT/INR, D-dimer PT 14.2 Sec. (12.2-14.9) 01/11/18 14:54 INR 1.05 (0.87-1.13) 01/11/18 14:54 D-Dimer > 18428 ng/mlDDU (0-234) H 01/11/18 14:54 Abnormal lab findings: Abnormal Labs 01/11/18 01/11/18 01/11/18 14:54 14:54 14:54 WBC 14.2 H RBC 5.35 H Hct 43.0 H MCV MCH 23 L MCHC 29 L RDW 17.9 H Plt Count Lymph % (Auto) [place] % (Auto) Lymph # [place] # Seg Neutrophils % Seg Neuts % (Manual) 74.0 H Lymphocytes % (Manual) 8.0 L Eosinophils % (Manual) 13.0 H Seg Neutrophils # Seg Neutrophils # Man 10.5 H Abs Lymphs (Manual) Lymphocytes # (Manual) 1.1 L Eosinophils # (Manual) 1.8 H D-Dimer > 80098 H Sodium Chloride Carbon Dioxide 20 L BUN Creatinine 0.5 L Glucose POC Glucose Lactic Acid Magnesium 2.60 H TIBC Ferritin CK-MB (CK-2) Rel Index 4.3 H Albumin 2.7 L Lymph Enumerat CD4/CD8 Absolute CD3 Count % CD4 Cells Absolute CD4 Count % CD8 Cells HIV-1 RNA PCR copies/ml HIV-1 RNA (PCR) log 01/11/18 01/11/18 01/11/18 15:19 20:49 21:42 WBC RBC Hct MCV MCH MCHC RDW Plt Count Lymph % (Auto) [place] % (Auto) Lymph # [place] # Seg Neutrophils % Seg Neuts % (Manual) Lymphocytes % (Manual) Eosinophils % (Manual) Seg Neutrophils # Seg Neutrophils # Man Abs Lymphs (Manual) Lymphocytes # (Manual) Eosinophils # (Manual) D-Dimer Sodium Chloride Carbon Dioxide BUN Creatinine Glucose POC Glucose Lactic Acid 3.20 H* 3.70 H* 4.00 H* Magnesium TIBC Ferritin CK-MB (CK-2) Rel Index Albumin Lymph Enumerat CD4/CD8 Absolute CD3 Count % CD4 Cells Absolute CD4 Count % CD8 Cells HIV-1 RNA PCR copies/ml HIV-1 RNA (PCR) log 01/13/18 01/13/18 01/13/18 10:55 10:55 10:55 WBC RBC Hct MCV MCH MCHC RDW Plt Count Lymph % (Auto) [place] % (Auto) Lymph # [place] # Seg Neutrophils % Seg Neuts % (Manual) Lymphocytes % (Manual) Eosinophils % (Manual) Seg Neutrophils # Seg Neutrophils # Man Abs Lymphs (Manual) 581 L Lymphocytes # (Manual) Eosinophils # (Manual) D-Dimer Sodium 154 H D Chloride 118.7 H Carbon Dioxide 20 L BUN Creatinine 0.5 L Glucose 208 H POC Glucose Lactic Acid Magnesium 2.40 H TIBC Ferritin CK-MB (CK-2) Rel Index Albumin Lymph Enumerat CD4/CD8 0.36 L Absolute CD3 Count 362 L % CD4 Cells 17 L Absolute CD4 Count 101 L % CD8 Cells 46 H HIV-1 RNA PCR copies/ml 98 H HIV-1 RNA (PCR) log 1.99 H 01/13/18 01/14/18 01/14/18 12:28 07:28 07:28 WBC 14.4 H 11.2 H RBC Hct MCV 77 L 76 L MCH 24 L 24 L MCHC RDW 16.6 H 16.5 H Plt Count 137 L Lymph % (Auto) 4.4 L [place] % (Auto) Lymph # 0.6 L [place] # 0.9 H Seg Neutrophils % 88.4 H Seg Neuts % (Manual) Lymphocytes % (Manual) Eosinophils % (Manual) Seg Neutrophils # 12.7 H Seg Neutrophils # Man Abs Lymphs (Manual) Lymphocytes # (Manual) Eosinophils # (Manual) D-Dimer Sodium 155 H Chloride 120.3 H Carbon Dioxide BUN Creatinine 0.4 L Glucose 111 H POC Glucose Lactic Acid Magnesium TIBC Ferritin CK-MB (CK-2) Rel Index Albumin Lymph Enumerat CD4/CD8 Absolute CD3 Count % CD4 Cells Absolute CD4 Count % CD8 Cells HIV-1 RNA PCR copies/ml HIV-1 RNA (PCR) log 04/01/15/18 01/16/18 08:05 08:05 06:04 WBC 11.2 H RBC Hct MCV 76 L 76 L MCH 24 L 24 L MCHC RDW 16.6 H 16.8 H Plt Count 115 L 110 L Lymph % (Auto) 6.5 L [place] % (Auto) 9.7 H Lymph # 0.7 L [place] # 1.1 H Seg Neutrophils % 83.2 H Seg Neuts % (Manual) Lymphocytes % (Manual) Eosinophils % (Manual) Seg Neutrophils # 9.3 H Seg Neutrophils # Man Abs Lymphs (Manual) Lymphocytes # (Manual) Eosinophils # (Manual) D-Dimer Sodium 149 H Chloride 113.4 H Carbon Dioxide BUN Creatinine 0.5 L Glucose 106 H POC Glucose Lactic Acid Magnesium TIBC Ferritin CK-MB (CK-2) Rel Index Albumin Lymph Enumerat CD4/CD8 Absolute CD3 Count % CD4 Cells Absolute CD4 Count % CD8 Cells HIV-1 RNA PCR copies/ml HIV-1 RNA (PCR) log 01/16/18 01/16/18 01/16/18 06:04 12:19 17:21 WBC RBC Hct MCV MCH MCHC RDW Plt Count Lymph % (Auto) [place] % (Auto) Lymph # [place] # Seg Neutrophils % Seg Neuts % (Manual) Lymphocytes % (Manual) Eosinophils % (Manual) Seg Neutrophils # Seg Neutrophils # Man Abs Lymphs (Manual) Lymphocytes # (Manual) Eosinophils # (Manual) D-Dimer Sodium 146 H Chloride 110.5 H Carbon Dioxide BUN 21 H Creatinine Glucose 112 H POC Glucose 145 H 232 H Lactic Acid Magnesium TIBC Ferritin CK-MB (CK-2) Rel Index Albumin 2.7 L Lymph Enumerat CD4/CD8 Absolute CD3 Count % CD4 Cells Absolute CD4 Count % CD8 Cells HIV-1 RNA PCR copies/ml HIV-1 RNA (PCR) log 01/16/18 01/16/18 01/16/18 17:43 17:43 21:25 WBC RBC Hct MCV MCH MCHC RDW Plt Count Lymph % (Auto) [place] % (Auto) Lymph # [place] # Seg Neutrophils % Seg Neuts % (Manual) Lymphocytes % (Manual) Eosinophils % (Manual) Seg Neutrophils # Seg Neutrophils # Man Abs Lymphs (Manual) Lymphocytes # (Manual) Eosinophils # (Manual) D-Dimer Sodium Chloride Carbon Dioxide BUN Creatinine Glucose POC Glucose 253 H Lactic Acid Magnesium TIBC 239 L Ferritin 511.5 H CK-MB (CK-2) Rel Index Albumin Lymph Enumerat CD4/CD8 Absolute CD3 Count % CD4 Cells Absolute CD4 Count % CD8 Cells HIV-1 RNA PCR copies/ml HIV-1 RNA (PCR) log
[2018-01-17] MEDS: NORCO 5/325 PO PRN ×4 (03:13→22:08)
[2018-01-17 06:19] LABS: Basophils % (Auto) 0.4 % (0.0-1.8); Eosinophils % (Auto) 0.3 % (0.0-4.3); Lymphocytes # (Auto) 0.7 K/mm3 (1.2-5.4); Lymphocytes % (Auto) 5.8 % (13.4-35.0); Mean Corpuscular HGB Conc 30 % (30-34); Mean Corpuscular Volume 78 fl (79-97); Monocytes # (Auto) 0.6 K/mm3 (0.0-0.8); Platelet Count 122 K/mm3 (140-440)
[2018-01-17 06:20] LABS: Hemoglobin 10.9 gm/dl (10.1-14.3)
[2018-01-17 06:21] LABS: Hematocrit 35.7 % (30.3-42.9); Mean Corpuscular Hemoglobin 24 pg (28-32)
[2018-01-17 06:40] LABS: BUN/Creatinine Ratio 24; Blood Urea Nitrogen 19 mg/dL (7-17); Calcium 9.7 mg/dL (8.4-10.2); Hemolysis Index 8
[2018-01-17] MEDS: DUONEB *Not for PRN Use IH SCH ×3 (07:55→20:28)
--- NOTE | 2018-01-17 09:54 | Progress Note ---
Assessment and Plan Assessment and plan: Metastatic lung cancer on CT chest Oxygen, nebulizers, supportive care, pulmonary consultation, oncology following- s/p Excisional biopsy of abdominal wall nodules 01/15 , sent to path HIV/AIDS; wasting syndrome ID following Sepsis; secondary to pneumonia, community-acquired Continue IV antibiotics, follow cultures, pulmonary following. Lactic acidosis resolved. Lactic acidosis secondary to sepsis, resolved Cachexia/Severe protein malnutrition [employer] consulted Hypernatremia. Sodium 146 Improving, continue D5W . Bilateral hydronephrosis Patient's kidney function is within normal limits, urology consulted, pt to f/u OP Polysubstance abuse Crack, cocaine, tobacco, Patient counseled on cessation Suspected TB Patient on airborne isolation until TB workup is completed. Sputum AFB sent, report pending History Interval history: Less shortness of breath, No fever Poor appetite Hospitalist Physical - Physical exam Narrative exam: Gen appearance: Not in acute distress, lying in bed,cachectic HEENT:Normocephalic, atraumatic Neck:supple, no JVD Lungs: Clear to auscultation bilaterally, no crackles , no wheeze Heart: S1 and S2 regular, no murmurs, rubs or gallop Abdomen: soft, non tender, multiple subcutanous lesions slkin abdomen, trunk, normal bowel sounds Ext: No edema, no clubbing, no cyanosis. Neuro: Awake, alert, oriented x 3. Moves all ext, no focal signs Psych:Normal mood - Constitutional Vitals: Temp Pulse Resp BP Pulse Ox 98.1 F 93 H 18 144/96 97 01/17/18 07:51 01/17/18 08:08 01/17/18 08:08 01/17/18 07:51 01/17/18 07:59 General appearance: Present: no acute distress, cachectic, disheveled Results - Labs CBC & Chem 7: 01/17/18 06:07 01/17/18 06:07 Labs: Laboratory Last Values WBC 12.0 K/mm3 (4.5-11.0) H 01/17/18 06:07 RBC 4.60 M/mm3 (3.65-5.03) 01/17/18 06:07 Hgb 10.9 gm/dl (10.1-14.3) 01/17/18 06:07 Hct 35.7 % (30.3-42.9) 01/17/18 06:07 MCV 78 fl (79-97) L 01/17/18 06:07 MCH 24 pg (28-32) L 01/17/18 06:07 MCHC 30 % (30-34) 01/17/18 06:07 RDW 17.0 % (13.2-15.2) H 01/17/18 06:07 Plt Count 122 K/mm3 (140-440) L 01/17/18 06:07 Lymph % (Auto) 5.8 % (13.4-35.0) L 01/17/18 06:07 [place] % (Auto) 5.0 % (0.0-7.3) 01/17/18 06:07 Eos % (Auto) 0.3 % (0.0-4.3) 01/17/18 06:07 Baso % (Auto) 0.4 % (0.0-1.8) 01/17/18 06:07 Lymph # 0.7 K/mm3 (1.2-5.4) L 01/17/18 06:07 [place] # 0.6 K/mm3 (0.0-0.8) 01/17/18 06:07 Eos # 0.0 K/mm3 (0.0-0.4) 01/17/18 06:07 Baso # 0.0 K/mm3 (0.0-0.1) 01/17/18 06:07 Add Manual Diff Complete 01/11/18 14:54 Total Counted 100 01/11/18 14:54 Seg Neutrophils % 88.5 % (40.0-70.0) H 01/17/18 06:07 Seg Neuts % (Manual) 74.0 % (40.0-70.0) H 01/11/18 14:54 Band Neutrophils % 0 % 01/11/18 14:54 Lymphocytes % (Manual) 8.0 % (13.4-35.0) L 01/11/18 14:54 Reactive Lymphs % (Man) 0 % 01/11/18 14:54 Monocytes % (Manual) 5.0 % (0.0-7.3) 01/11/18 14:54 Eosinophils % (Manual) 13.0 % (0.0-4.3) H 01/11/18 14:54 Basophils % (Manual) 0 % (0.0-1.8) 01/11/18 14:54 Metamyelocytes % 0 % 01/11/18 14:54 Myelocytes % 0 % 01/11/18 14:54 Promyelocytes % 0 % 01/11/18 14:54 Blast Cells % 0 % 01/11/18 14:54 Nucleated RBC % Not Reportable 01/11/18 14:54 Seg Neutrophils # 10.6 K/mm3 (1.8-7.7) H 01/17/18 06:07 Seg Neutrophils # Man 10.5 K/mm3 (1.8-7.7) H 01/11/18 14:54 Band Neutrophils # 0.0 K/mm3 01/11/18 14:54 Abs Lymphs (Manual) 581 cells/uL (850-3900) L 01/13/18 10:55 Lymphocytes # (Manual) 1.1 K/mm3 (1.2-5.4) L 01/11/18 14:54 Abs React Lymphs (Man) 0.0 K/mm3 01/11/18 14:54 Monocytes # (Manual) 0.7 K/mm3 (0.0-0.8) 01/11/18 14:54 Eosinophils # (Manual) 1.8 K/mm3 (0.0-0.4) H 01/11/18 14:54 Basophils # (Manual) 0.0 K/mm3 (0.0-0.1) 01/11/18 14:54 Metamyelocytes # 0.0 K/mm3 01/11/18 14:54 Myelocytes # 0.0 K/mm3 01/11/18 14:54 Promyelocytes # 0.0 K/mm3 01/11/18 14:54 Blast Cells # 0.0 K/mm3 01/11/18 14:54 WBC Morphology Not Reportable 01/11/18 14:54 Hypersegmented Neuts Not Reportable 01/11/18 14:54 Hyposegmented Neuts Not Reportable 01/11/18 14:54 Hypogranular Neuts Not Reportable 01/11/18 14:54 Smudge Cells Not Reportable 01/11/18 14:54 Toxic Granulation Not Reportable 01/11/18 14:54 Toxic Vacuolation Not Reportable 01/11/18 14:54 Dohle Bodies Not Reportable 01/11/18 14:54 Pelger-Huet Anomaly Not Reportable 01/11/18 14:54 Afshin Rods Not Reportable 01/11/18 14:54 Platelet Estimate Consistent w auto 01/11/18 14:54 Clumped Platelets Not Reportable 01/11/18 14:54 Plt Clumps, EDTA Not Reportable 01/11/18 14:54 Large Platelets Not Reportable 01/11/18 14:54 Giant Platelets Not Reportable 01/11/18 14:54 Platelet Satelliting Not Reportable 01/11/18 14:54 Plt Morphology Comment Not Reportable 01/11/18 14:54 RBC Morphology Not Reportable 01/11/18 14:54 Dimorphic RBCs Not Reportable 01/11/18 14:54 Polychromasia Not Reportable 01/11/18 14:54 Hypochromasia Not Reportable 01/11/18 14:54 Poikilocytosis 1+ 01/11/18 14:54 Anisocytosis 1+ 01/11/18 14:54 Microcytosis Not Reportable 01/11/18 14:54 Macrocytosis Not Reportable 01/11/18 14:54 Spherocytes Not Reportable 01/11/18 14:54 Pappenheimer Bodies Not Reportable 01/11/18 14:54 Sickle Cells Not Reportable 01/11/18 14:54 Target Cells Not Reportable 01/11/18 14:54 Tear Drop Cells Not Reportable 01/11/18 14:54 Ovalocytes Not Reportable 01/11/18 14:54 Helmet Cells Not Reportable 01/11/18 14:54 Carpenter-Vernal Bodies Not Reportable 01/11/18 14:54 [place] Rings Not Reportable 01/11/18 14:54 Hathorne Cells Not Reportable 01/11/18 14:54 Bite Cells Not Reportable 01/11/18 14:54 Crenated Cell Not Reportable 01/11/18 14:54 Elliptocytes Not Reportable 01/11/18 14:54 Acanthocytes (Spur) Not Reportable 01/11/18 14:54 Rouleaux Not Reportable 01/11/18 14:54 Hemoglobin C Crystals Not Reportable 01/11/18 14:54 Schistocytes Not Reportable 01/11/18 14:54 Malaria parasites Not Reportable 01/11/18 14:54 Edil Bodies Not Reportable 01/11/18 14:54 Hem Pathologist Commnt No 01/11/18 14:54 PT 14.2 Sec. (12.2-14.9) 01/11/18 14:54 INR 1.05 (0.87-1.13) 01/11/18 14:54 D-Dimer > 12965 ng/mlDDU (0-234) H 01/11/18 14:54 Sodium 146 mmol/L (137-145) H 01/17/18 06:07 Potassium 4.7 mmol/L (3.6-5.0) 01/17/18 06:07 Chloride 110.9 mmol/L (98-107) H 01/17/18 06:07 Carbon Dioxide 23 mmol/L (22-30) 01/17/18 06:07 Anion Gap 17 mmol/L 01/17/18 06:07 BUN 19 mg/dL (7-17) H 01/17/18 06:07 Creatinine 0.8 mg/dL (0.7-1.2) 01/17/18 06:07 Estimated GFR > 60 ml/min 01/17/18 06:07 BUN/Creatinine Ratio 24 % 01/17/18 06:07 Glucose 109 mg/dL (65-100) H 01/17/18 06:07 POC Glucose 170 (70-105) H 01/17/18 06:22 Lactic Acid 1.50 mmol/L (0.7-2.0) 01/12/18 03:20 Calcium 9.7 mg/dL (8.4-10.2) 01/17/18 06:07 Phosphorus 3.40 mg/dL (2.5-4.5) 01/13/18 10:55 Magnesium 2.40 mg/dL (1.7-2.3) H 01/13/18 10:55 Iron 37 ug/dL (37-170) 01/16/18 17:43 TIBC 239 mcg/dL (250-450) L 01/16/18 17:43 Ferritin 511.5 ng/mL (13.0-400.0) H 01/16/18 17:43 Total Bilirubin 0.20 mg/dL (0.1-1.2) 01/16/18 06:04 AST 19 units/L (5-40) 01/16/18 06:04 ALT 9 units/L (7-56) 01/16/18 06:04 Alkaline Phosphatase 121 units/L (35-129) 01/16/18 06:04 Total Creatine Kinase 51 units/L (30-135) 01/11/18 14:54 CK-MB (CK-2) 2.2 ng/mL (0.0-4.0) 01/11/18 14:54 CK-MB (CK-2) Rel Index 4.3 (0-4) H 01/11/18 14:54 Troponin T 0.021 ng/mL (0.00-0.029) 01/11/18 14:54 NT-Pro-B Natriuret Pep 775.8 pg/mL (0-900) 01/11/18 14:55 Total Protein 6.7 g/dL (6.3-8.2) 01/16/18 06:04 Albumin 2.7 g/dL (3.9-5) L 01/16/18 06:04 Albumin/Globulin Ratio 0.7 % 01/16/18 06:04 Vitamin B12 475.5 pg/mL (211-911) 01/16/18 18:13 Folate 16.14 ng/mL (7.3-26.0) 01/16/18 18:13 Urine Color Red (Yellow) 01/11/18 13:50 Urine Turbidity Clear (Clear) 01/11/18 13:50 Urine pH 6.0 (5.0-7.0) 01/11/18 13:50 Ur Specific [place] 1.003 (1.003-1.030) 01/11/18 13:50 Urine Protein <15 mg/dl mg/dL (Negative) 01/11/18 13:50 Urine Glucose (UA) Neg mg/dL (Negative) 01/11/18 13:50 Urine Ketones Neg mg/dL (Negative) 01/11/18 13:50 Urine Blood Sm (Negative) 01/11/18 13:50 Urine Nitrite Neg (Negative) 01/11/18 13:50 Urine Bilirubin Neg (Negative) 01/11/18 13:50 Urine Urobilinogen < 2.0 mg/dL (<2.0) 01/11/18 13:50 Ur Leukocyte Esterase Sm (Negative) 01/11/18 13:50 Urine WBC (Auto) 3.0 /HPF (0.0-6.0) 01/11/18 13:50 Urine RBC (Auto) 1.0 /HPF (0.0-6.0) 01/11/18 13:50 U Epithel Cells (Auto) 1.0 /HPF (0-13.0) 01/11/18 13:50 Urine Bacteria (Auto) 1+ /HPF (Negative) 01/11/18 13:50 Urine Mucus Few /HPF 01/11/18 13:50 Lymph Enumerat CD4/CD8 0.36 (0.86-5.00) L 01/13/18 10:55 % CD3 Cells 62 % (57-85) 01/13/18 10:55 Absolute CD3 Count 362 cells/uL (840-3060) L 01/13/18 10:55 % CD4 Cells 17 % (30-61) L 01/13/18 10:55 Absolute CD4 Count 101 cells/uL (490-1740) L 01/13/18 10:55 % CD8 Cells 46 % (12-42) H 01/13/18 10:55 Absolute CD8 Count 276 cells/uL (180-1170) 01/13/18 10:55 % CD19 Cells 26 % (6-29) 01/13/18 10:55 Absolute CD19 Count 143 cells/uL (110-660) 01/13/18 10:55 HIV-1 RNA PCR copies/ml 98 Copies/mL H 01/13/18 10:55 HIV-1 RNA (PCR) log 1.99 Log cps/mL H 01/13/18 10:55 TB (QFT) Gold In Tube Negative (Negative) 01/13/18 09:44 TB Test (QFT) Nil 0.02 IU/mL 01/13/18 09:44 TB Test Mitogen - Nil 9.00 IU/mL 01/13/18 09:44 TB Test Antigen - Nil 0.02 IU/mL 01/13/18 09:44 Miscellaneous Test Flexitest 1 01/13/18 09:37
[2018-01-17] MEDS: cefTRIAXone 1 GM in NACL 0.9% 20 ML IV SCH (10:04)
[2018-01-17] MEDS: NON-FORMULARY (Emtricitabine/Tenofov Alafenam [Descovy 200-25 Mg Tablet] 1 EACH) PO SCH (10:05)
[2018-01-17] MEDS: HALFPRIN EC PO SCH (10:05)
[2018-01-17] MEDS: FOLVITE PO SCH (10:06)
[2018-01-17] MEDS: ZITHROMAX PO SCH (10:06)
[2018-01-17] MEDS: NORVASC PO SCH (10:06)
[2018-01-17] MEDS: TIVICAY (NF) PO SCH (10:07)
[2018-01-17] MEDS: SODIUM CHLORIDE FLUSH SYRINGE 10 ML IV SCH ×2 (10:07→21:59)
[2018-01-17] MEDS: BACTRIM DS PO SCH (10:07)
[2018-01-17] MEDS ORDERED: AMIDATE IV ONE (10:26)
--- NOTE | 2018-01-17 15:49 | Progress Note ---
Assessment and Plan Assessment: 1) SIRS: better, still leukocytosis. Etio. ? malignancy 2) Pulmonary nodules and hilar, mediastinal lymphadenopathy, with metastatic disease to liver, bones, skin, muscular seen on CT C/A/P. Highly suggestive of malignancy. - Quantiferon TB negative - Aspergillus ag negative 3) Bilateral hydronephrosis (L>R). UA unremarkable 4) Recent diagnosis of HIV/AIDS at [facility]. On Descovy and Tivicay and OI prophylaxis with bactrim. - VY8=234 / VL=98 5) Cachexia/Severe protein caloric malnutrition. 6) Generalized lymphadenopathy - due to HIV +/- malignancy. - S/P Excisional biopsy of abdominal wall nodules 01/14/18 7) Probable COPD 8) Syncope 9) Poly-substance abuse: crack/cocaine, tobacco. Recommendations: -F/u Excisional biopsy of abdominal wall nodule path -Continue HAART. -Stop ceftriaxone and azithromycin D7. -Continue PJP prophylaxis with bactrim -unable to collect AFB in sputum -stop airborne isolation in view of negative quantiferon TB gold -f/u Legionella ag, pneumococcal ag and Histoplasma urinary antigens Griselda Lucio MD Infectious Diseases Specialist [facility] [phone] Subjective Date of service: 01/17/18 Principal diagnosis: Abnormal CT Chest; Lung Masses; HIV positive Interval history: Feels ok Micro: Blood cultures: 01/11 NGTD Cryptococcal ag serum 01/13 negative Current Antimicrobials: Ceftriaxone 01/11- Azithromycin 01/11- Bactrim 01/11- HAART: Descovy and Tivicay Previous Antimicrobials: Levaquin x1 01/11 Other meds: Solumedrol 01/11- Objective - Exam Narrative Exam: General appearance: Alert in NAD, conversant, cachectic. On NC. Eyes: anicteric sclerae, moist conjunctivae; PERRLA, EOMI. HENT: Atraumatic; oropharynx clear, with moist mucous membranes and no mucosal ulcerations/no oral thrush; normal hard and soft palate. Normal external ears. Neck: Supple Lungs: CTA, with normal respiratory effort and no intercostal retractions CV: S1,S2. RRR. Abdomen: +BS. Soft. +TTP diffusely. Palpable masses anterior abdominal wall. Extremities: No c/c/e. Skin: No rash, no open wounds. Lymph nodes: palpable LN, cervical, axillary, inguinal. Psych: Appropriate affect, alert and oriented to person, place and time. Neuro: alert and oriented x 3. Grossly non-focal Lines: No CVL / PICC - Constitutional Vitals: Vital Signs Temp Pulse Resp BP Pulse Ox 98.1 F 107 H 20 147/96 97 01/17/18 07:51 01/17/18 13:21 01/17/18 14:49 01/17/18 10:06 01/17/18 07:59 Temperature -Last 24 Hours Temperature 98.1 F Temperature 98.4 F Temperature 98.1 F Temperature 97.5 F - Labs CBC & Chem 7: 01/17/18 06:07 01/17/18 06:07 Labs: Abnormal lab results 01/13/18 01/16/18 01/16/18 Range/Units 10:55 12:19 17:21 WBC (4.5-11.0) K/mm3 MCV (79-97) fl MCH (28-32) pg RDW (13.2-15.2) % Plt Count (140-440) K/mm3 Lymph % (Auto) (13.4-35.0) % Lymph # (1.2-5.4) K/mm3 Seg Neutrophils % (40.0-70.0) % Seg Neutrophils # (1.8-7.7) K/mm3 Abs Lymphs (Manual) 581 L (850-3900) cells/uL Sodium (137-145) mmol/L Chloride (98-107) mmol/L BUN (7-17) mg/dL Glucose (65-100) mg/dL POC Glucose 145 H 232 H (70-105) TIBC (250-450) mcg/dL Ferritin (13.0-400.0) ng/mL Lymph Enumerat CD4/CD8 0.36 L (0.86-5.00) Absolute CD3 Count 362 L (840-3060) cells/uL % CD4 Cells 17 L (30-61) % Absolute CD4 Count 101 L (490-1740) cells/uL % CD8 Cells 46 H (12-42) % 01/16/18 01/16/18 01/16/18 Range/Units 17:43 17:43 21:25 WBC (4.5-11.0) K/mm3 MCV (79-97) fl MCH (28-32) pg RDW (13.2-15.2) % Plt Count (140-440) K/mm3 Lymph % (Auto) (13.4-35.0) % Lymph # (1.2-5.4) K/mm3 Seg Neutrophils % (40.0-70.0) % Seg Neutrophils # (1.8-7.7) K/mm3 Abs Lymphs (Manual) (850-3900) cells/uL Sodium (137-145) mmol/L Chloride (98-107) mmol/L BUN (7-17) mg/dL Glucose (65-100) mg/dL POC Glucose 253 H (70-105) TIBC 239 L (250-450) mcg/dL Ferritin 511.5 H (13.0-400.0) ng/mL Lymph Enumerat CD4/CD8 (0.86-5.00) Absolute CD3 Count (840-3060) cells/uL % CD4 Cells (30-61) % Absolute CD4 Count (490-1740) cells/uL % CD8 Cells (12-42) % 01/17/18 01/17/18 01/17/18 Range/Units 06:07 06:07 06:22 WBC 12.0 H (4.5-11.0) K/mm3 MCV 78 L (79-97) fl MCH 24 L (28-32) pg RDW 17.0 H (13.2-15.2) % Plt Count 122 L (140-440) K/mm3 Lymph % (Auto) 5.8 L (13.4-35.0) % Lymph # 0.7 L (1.2-5.4) K/mm3 Seg Neutrophils % 88.5 H (40.0-70.0) % Seg Neutrophils # 10.6 H (1.8-7.7) K/mm3 Abs Lymphs (Manual) (850-3900) cells/uL Sodium 146 H (137-145) mmol/L Chloride 110.9 H (98-107) mmol/L BUN 19 H (7-17) mg/dL Glucose 109 H (65-100) mg/dL POC Glucose 170 H (70-105) TIBC (250-450) mcg/dL Ferritin (13.0-400.0) ng/mL Lymph Enumerat CD4/CD8 (0.86-5.00) Absolute CD3 Count (840-3060) cells/uL % CD4 Cells (30-61) % Absolute CD4 Count (490-1740) cells/uL % CD8 Cells (12-42) % 01/17/18 Range/Units 11:25 WBC (4.5-11.0) K/mm3 MCV (79-97) fl MCH (28-32) pg RDW (13.2-15.2) % Plt Count (140-440) K/mm3 Lymph % (Auto) (13.4-35.0) % Lymph # (1.2-5.4) K/mm3 Seg Neutrophils % (40.0-70.0) % Seg Neutrophils # (1.8-7.7) K/mm3 Abs Lymphs (Manual) (850-3900) cells/uL Sodium (137-145) mmol/L Chloride (98-107) mmol/L BUN (7-17) mg/dL Glucose (65-100) mg/dL POC Glucose 125 H (70-105) TIBC (250-450) mcg/dL Ferritin (13.0-400.0) ng/mL Lymph Enumerat CD4/CD8 (0.86-5.00) Absolute CD3 Count (840-3060) cells/uL % CD4 Cells (30-61) % Absolute CD4 Count (490-1740) cells/uL % CD8 Cells (12-42) %
--- NOTE | 2018-01-17 16:39 | Progress Note ---
Assessment and Plan Patient resting on 2 litres O2. No acute respiratory distress.O2 saturation 97% .Patient weak. No acute respiratory distress.Patient undergone excision of abdominal wall nodule. Pathology results still pending - Patient Problems (1) Pulmonary nodules/lesions, multiple Current Visit: Yes Status: Acute Plan to address problem: If subcutaneous nodule biopsy is non diagnostic, Recommend percutaneous needle biopsy of peripheral lung lesions by interventional radiology. (2) Generalized subcutaneous nodules Current Visit: Yes Status: Acute Plan to address problem: atient undergone excision of abdominal wall nodule. Pathology results still pending (3) HIV (human immunodeficiency virus infection) Current Visit: Yes Status: Acute Plan to address problem: Management as per infectious diseases. Subjective Date of service: 01/17/18 Principal diagnosis: Abnormal CT Chest; Lung Masses; HIV positive Interval history: Patient resting on 2 litres O2. No acute respiratory distress.O2 saturation 97% .Patient weak. No acute respiratory distress.Patient undergone excision of abdominal wall nodule. Pathology results still pending Objective Vital Signs - 12hr 01/17/18 01/17/18 01/17/18 07:51 07:55 07:59 Temperature 98.1 F Pulse Rate 98 H Pulse Rate [ Anterior Bilateral Throughout] Pulse Rate [ 96 H Bilateral Throughout] Respiratory 22 Rate Respiratory Rate [Anterior Bilateral Throughout] Respiratory 18 Rate [Bilateral Throughout] Blood Pressure 144/96 O2 Sat by Pulse 97 97 Oximetry 01/17/18 01/17/18 01/17/18 08:08 10:06 10:16 Temperature Pulse Rate 98 H Pulse Rate [ Anterior Bilateral Throughout] Pulse Rate [ 93 H Bilateral Throughout] Respiratory 22 Rate Respiratory Rate [Anterior Bilateral Throughout] Respiratory 18 Rate [Bilateral Throughout] Blood Pressure 147/96 O2 Sat by Pulse Oximetry 01/17/18 01/17/18 01/17/18 13:11 13:21 14:49 Temperature Pulse Rate Pulse Rate [ 101 H 107 H Anterior Bilateral Throughout] Pulse Rate [ Bilateral Throughout] Respiratory 20 Rate Respiratory 20 20 Rate [Anterior Bilateral Throughout] Respiratory Rate [Bilateral Throughout] Blood Pressure O2 Sat by Pulse Oximetry Constitutional: no acute distress, alert, other (looks chronically ill) Eyes: non-icteric ENT: oropharynx moist, other (no thyromegaly) Neck: supple, lymphadenopathy, no JVD Effort: mildly labored Ascultation: Bilateral: diminished breath sounds, rales (scant ) Percussion: Bilateral: not dull Cardiovascular: regular rate and rhythm, other (no rubs or murmurs) Gastrointestinal: normoactive bowel sounds, soft, non-tender, non-distended, other (no palpable HSM) Integumentary: other (poor turgor) Extremities: no cyanosis, no edema, pink and warm, pulses normal Neurologic: normal mental status, non-focal exam, pupils equal and round, CN II- XII normal Psychiatric: mood appropriate, affect normal CBC and BMP: 01/17/18 06:07 01/17/18 06:07 ABG, PT/INR, D-dimer: PT/INR, D-dimer PT 14.2 Sec. (12.2-14.9) 01/11/18 14:54 INR 1.05 (0.87-1.13) 01/11/18 14:54 D-Dimer > 84217 ng/mlDDU (0-234) H 01/11/18 14:54 Abnormal lab findings: Abnormal Labs 01/11/18 01/11/18 01/11/18 14:54 14:54 14:54 WBC 14.2 H RBC 5.35 H Hct 43.0 H MCV MCH 23 L MCHC 29 L RDW 17.9 H Plt Count Lymph % (Auto) Drew % (Auto) Lymph # Drew # Seg Neutrophils % Seg Neuts % (Manual) 74.0 H Lymphocytes % (Manual) 8.0 L Eosinophils % (Manual) 13.0 H Seg Neutrophils # Seg Neutrophils # Man 10.5 H Abs Lymphs (Manual) Lymphocytes # (Manual) 1.1 L Eosinophils # (Manual) 1.8 H D-Dimer > 62404 H Sodium Chloride Carbon Dioxide 20 L BUN Creatinine 0.5 L Glucose POC Glucose Lactic Acid Magnesium 2.60 H TIBC Ferritin CK-MB (CK-2) Rel Index 4.3 H Albumin 2.7 L Lymph Enumerat CD4/CD8 Absolute CD3 Count % CD4 Cells Absolute CD4 Count % CD8 Cells HIV-1 RNA PCR copies/ml HIV-1 RNA (PCR) log 01/11/18 01/11/18 01/11/18 15:19 20:49 21:42 WBC RBC Hct MCV MCH MCHC RDW Plt Count Lymph % (Auto) Drew % (Auto) Lymph # Drew # Seg Neutrophils % Seg Neuts % (Manual) Lymphocytes % (Manual) Eosinophils % (Manual) Seg Neutrophils # Seg Neutrophils # Man Abs Lymphs (Manual) Lymphocytes # (Manual) Eosinophils # (Manual) D-Dimer Sodium Chloride Carbon Dioxide BUN Creatinine Glucose POC Glucose Lactic Acid 3.20 H* 3.70 H* 4.00 H* Magnesium TIBC Ferritin CK-MB (CK-2) Rel Index Albumin Lymph Enumerat CD4/CD8 Absolute CD3 Count % CD4 Cells Absolute CD4 Count % CD8 Cells HIV-1 RNA PCR copies/ml HIV-1 RNA (PCR) log 01/13/18 01/13/18 01/13/18 10:55 10:55 10:55 WBC RBC Hct MCV MCH MCHC RDW Plt Count Lymph % (Auto) Drew % (Auto) Lymph # Drew # Seg Neutrophils % Seg Neuts % (Manual) Lymphocytes % (Manual) Eosinophils % (Manual) Seg Neutrophils # Seg Neutrophils # Man Abs Lymphs (Manual) 581 L Lymphocytes # (Manual) Eosinophils # (Manual) D-Dimer Sodium 154 H D Chloride 118.7 H Carbon Dioxide 20 L BUN Creatinine 0.5 L Glucose 208 H POC Glucose Lactic Acid Magnesium 2.40 H TIBC Ferritin CK-MB (CK-2) Rel Index Albumin Lymph Enumerat CD4/CD8 0.36 L Absolute CD3 Count 362 L % CD4 Cells 17 L Absolute CD4 Count 101 L % CD8 Cells 46 H HIV-1 RNA PCR copies/ml 98 H HIV-1 RNA (PCR) log 1.99 H 01/13/18 01/14/18 01/14/18 12:28 07:28 07:28 WBC 14.4 H 11.2 H RBC Hct MCV 77 L 76 L MCH 24 L 24 L MCHC RDW 16.6 H 16.5 H Plt Count 137 L Lymph % (Auto) 4.4 L Drew % (Auto) Lymph # 0.6 L Drew # 0.9 H Seg Neutrophils % 88.4 H Seg Neuts % (Manual) Lymphocytes % (Manual) Eosinophils % (Manual) Seg Neutrophils # 12.7 H Seg Neutrophils # Man Abs Lymphs (Manual) Lymphocytes # (Manual) Eosinophils # (Manual) D-Dimer Sodium 155 H Chloride 120.3 H Carbon Dioxide BUN Creatinine 0.4 L Glucose 111 H POC Glucose Lactic Acid Magnesium TIBC Ferritin CK-MB (CK-2) Rel Index Albumin Lymph Enumerat CD4/CD8 Absolute CD3 Count % CD4 Cells Absolute CD4 Count % CD8 Cells HIV-1 RNA PCR copies/ml HIV-1 RNA (PCR) log 01/15/18 01/15/18 01/16/18 08:05 08:05 06:04 WBC 11.2 H RBC Hct MCV 76 L 76 L MCH 24 L 24 L MCHC RDW 16.6 H 16.8 H Plt Count 115 L 110 L Lymph % (Auto) 6.5 L Drew % (Auto) 9.7 H Lymph # 0.7 L Drew # 1.1 H Seg Neutrophils % 83.2 H Seg Neuts % (Manual) Lymphocytes % (Manual) Eosinophils % (Manual) Seg Neutrophils # 9.3 H Seg Neutrophils # Man Abs Lymphs (Manual) Lymphocytes # (Manual) Eosinophils # (Manual) D-Dimer Sodium 149 H Chloride 113.4 H Carbon Dioxide BUN Creatinine 0.5 L Glucose 106 H POC Glucose Lactic Acid Magnesium TIBC Ferritin CK-MB (CK-2) Rel Index Albumin Lymph Enumerat CD4/CD8 Absolute CD3 Count % CD4 Cells Absolute CD4 Count % CD8 Cells HIV-1 RNA PCR copies/ml HIV-1 RNA (PCR) log 01/16/18 01/16/18 01/16/18 06:04 12:19 17:21 WBC RBC Hct MCV MCH MCHC RDW Plt Count Lymph % (Auto) Drew % (Auto) Lymph # Drew # Seg Neutrophils % Seg Neuts % (Manual) Lymphocytes % (Manual) Eosinophils % (Manual) Seg Neutrophils # Seg Neutrophils # Man Abs Lymphs (Manual) Lymphocytes # (Manual) Eosinophils # (Manual) D-Dimer Sodium 146 H Chloride 110.5 H Carbon Dioxide BUN 21 H Creatinine Glucose 112 H POC Glucose 145 H 232 H Lactic Acid Magnesium TIBC Ferritin CK-MB (CK-2) Rel Index Albumin 2.7 L Lymph Enumerat CD4/CD8 Absolute CD3 Count % CD4 Cells Absolute CD4 Count % CD8 Cells HIV-1 RNA PCR copies/ml HIV-1 RNA (PCR) log 01/16/18 01/16/18 01/16/18 17:43 17:43 21:25 WBC RBC Hct MCV MCH MCHC RDW Plt Count Lymph % (Auto) Drew % (Auto) Lymph # Drew # Seg Neutrophils % Seg Neuts % (Manual) Lymphocytes % (Manual) Eosinophils % (Manual) Seg Neutrophils # Seg Neutrophils # Man Abs Lymphs (Manual) Lymphocytes # (Manual) Eosinophils # (Manual) D-Dimer Sodium Chloride Carbon Dioxide BUN Creatinine Glucose POC Glucose 253 H Lactic Acid Magnesium TIBC 239 L Ferritin 511.5 H CK-MB (CK-2) Rel Index Albumin Lymph Enumerat CD4/CD8 Absolute CD3 Count % CD4 Cells Absolute CD4 Count % CD8 Cells HIV-1 RNA PCR copies/ml HIV-1 RNA (PCR) log 01/17/18 01/17/18 01/17/18 06:07 06:07 06:22 WBC 12.0 H RBC Hct MCV 78 L MCH 24 L MCHC RDW 17.0 H Plt Count 122 L Lymph % (Auto) 5.8 L Drew % (Auto) Lymph # 0.7 L Drew # Seg Neutrophils % 88.5 H Seg Neuts % (Manual) Lymphocytes % (Manual) Eosinophils % (Manual) Seg Neutrophils # 10.6 H Seg Neutrophils # Man Abs Lymphs (Manual) Lymphocytes # (Manual) Eosinophils # (Manual) D-Dimer Sodium 146 H Chloride 110.9 H Carbon Dioxide BUN 19 H Creatinine Glucose 109 H POC Glucose 170 H Lactic Acid Magnesium TIBC Ferritin CK-MB (CK-2) Rel Index Albumin Lymph Enumerat CD4/CD8 Absolute CD3 Count % CD4 Cells Absolute CD4 Count % CD8 Cells HIV-1 RNA PCR copies/ml HIV-1 RNA (PCR) log 01/17/18 11:25 WBC RBC Hct MCV MCH MCHC RDW Plt Count Lymph % (Auto) Drew % (Auto) Lymph # Drew # Seg Neutrophils % Seg Neuts % (Manual) Lymphocytes % (Manual) Eosinophils % (Manual) Seg Neutrophils # Seg Neutrophils # Man Abs Lymphs (Manual) Lymphocytes # (Manual) Eosinophils # (Manual) D-Dimer Sodium Chloride Carbon Dioxide BUN Creatinine Glucose POC Glucose 125 H Lactic Acid Magnesium TIBC Ferritin CK-MB (CK-2) Rel Index Albumin Lymph Enumerat CD4/CD8 Absolute CD3 Count % CD4 Cells Absolute CD4 Count % CD8 Cells HIV-1 RNA PCR copies/ml HIV-1 RNA (PCR) log
[2018-01-18 06:44] LABS: Basophils % (Auto) 0.2 % (0.0-1.8); Eosinophils % (Auto) 0.3 % (0.0-4.3); Hematocrit 34.2 % (30.3-42.9); Hemoglobin 10.8 gm/dl (10.1-14.3); Lymphocytes # (Auto) 0.6 K/mm3 (1.2-5.4); Lymphocytes % (Auto) 5.7 % (13.4-35.0); Mean Corpuscular HGB Conc 31 % (30-34); Mean Corpuscular Volume 76 fl (79-97); Monocytes # (Auto) 0.9 K/mm3 (0.0-0.8); Monocytes % (Auto) 8.6 % (0.0-7.3); Platelet Count 133 K/mm3 (140-440); Red Blood Count 4.48 M/mm3 (3.65-5.03); Red Cell Distribution Width 16.9 % (13.2-15.2)
[2018-01-18 06:45] LABS: Mean Corpuscular Hemoglobin 24 pg (28-32)
[2018-01-18 07:05] LABS: BUN/Creatinine Ratio 29; Blood Urea Nitrogen 23 mg/dL (7-17); Calcium 9.9 mg/dL (8.4-10.2); Hemolysis Index 8
[2018-01-18] MEDS: NORCO 5/325 PO PRN ×3 (08:46→21:36)
[2018-01-18] MEDS: DUONEB *Not for PRN Use IH SCH ×3 (09:30→20:07)
[2018-01-18] MEDS: HALFPRIN EC PO SCH (09:37)
[2018-01-18] MEDS: NORVASC PO SCH (09:37)
[2018-01-18] MEDS: NON-FORMULARY (Emtricitabine/Tenofov Alafenam [Descovy 200-25 Mg Tablet] 1 EACH) PO SCH (09:38)
[2018-01-18] MEDS: FOLVITE PO SCH (09:38)
[2018-01-18] MEDS: BACTRIM DS PO SCH (09:38)
[2018-01-18] MEDS: TIVICAY (NF) PO SCH (09:38)
[2018-01-18] MEDS: SODIUM CHLORIDE FLUSH SYRINGE 10 ML IV SCH (09:39)
--- NOTE | 2018-01-18 09:47 | Progress Note ---
<EBONI NOYOLA O - Last Filed: 01/19/18 05:03> Assessment and Plan Assessment and plan: I saw and evaluated the patient. I agree with the findings and the plan of care as documented in the Nurse Practitioner's~note, with the following corrections and additions. Patient with metastatic lung cancer. She was on isolation to rule out TB but this has been ruled out and isolation cancelled. I had a lengthy discussion with Rebekah English,( ) health care agent for patient. She wants patient transferred to [place] since she was just discharged from [place] on 01/04/18 and some of workup is being duplicated. Her medical records from [place] are now in paper chart. Hospitalist Physical - Constitutional Vitals: Temp Pulse Resp BP Pulse Ox 98.3 F 107 H 18 119/86 96 01/18/18 15:35 01/18/18 22:00 01/18/18 22:00 01/18/18 15:35 01/18/18 20:14 Results - Labs CBC & Chem 7: 01/18/18 06:17 01/18/18 06:17 Labs: Laboratory Last Values WBC 10.7 K/mm3 (4.5-11.0) 01/18/18 06:17 RBC 4.48 M/mm3 (3.65-5.03) 01/18/18 06:17 Hgb 10.8 gm/dl (10.1-14.3) 01/18/18 06:17 Hct 34.2 % (30.3-42.9) 01/18/18 06:17 MCV 76 fl (79-97) L 01/18/18 06:17 MCH 24 pg (28-32) L 01/18/18 06:17 MCHC 31 % (30-34) 01/18/18 06:17 RDW 16.9 % (13.2-15.2) H 01/18/18 06:17 Plt Count 133 K/mm3 (140-440) L 01/18/18 06:17 Lymph % (Auto) 5.7 % (13.4-35.0) L 01/18/18 06:17 Walker % (Auto) 8.6 % (0.0-7.3) H 01/18/18 06:17 Eos % (Auto) 0.3 % (0.0-4.3) 01/18/18 06:17 Baso % (Auto) 0.2 % (0.0-1.8) 01/18/18 06:17 Lymph # 0.6 K/mm3 (1.2-5.4) L 01/18/18 06:17 Walker # 0.9 K/mm3 (0.0-0.8) H 01/18/18 06:17 Eos # 0.0 K/mm3 (0.0-0.4) 01/18/18 06:17 Baso # 0.0 K/mm3 (0.0-0.1) 01/18/18 06:17 Add Manual Diff Complete 01/11/18 14:54 Total Counted 100 01/11/18 14:54 Seg Neutrophils % 85.2 % (40.0-70.0) H 01/18/18 06:17 Seg Neuts % (Manual) 74.0 % (40.0-70.0) H 01/11/18 14:54 Band Neutrophils % 0 % 01/11/18 14:54 Lymphocytes % (Manual) 8.0 % (13.4-35.0) L 01/11/18 14:54 Reactive Lymphs % (Man) 0 % 01/11/18 14:54 Monocytes % (Manual) 5.0 % (0.0-7.3) 01/11/18 14:54 Eosinophils % (Manual) 13.0 % (0.0-4.3) H 01/11/18 14:54 Basophils % (Manual) 0 % (0.0-1.8) 01/11/18 14:54 Metamyelocytes % 0 % 01/11/18 14:54 Myelocytes % 0 % 01/11/18 14:54 Promyelocytes % 0 % 01/11/18 14:54 Blast Cells % 0 % 01/11/18 14:54 Nucleated RBC % Not Reportable 01/11/18 14:54 Seg Neutrophils # 9.1 K/mm3 (1.8-7.7) H 01/18/18 06:17 Seg Neutrophils # Man 10.5 K/mm3 (1.8-7.7) H 01/11/18 14:54 Band Neutrophils # 0.0 K/mm3 01/11/18 14:54 Abs Lymphs (Manual) 581 cells/uL (850-3900) L 01/13/18 10:55 Lymphocytes # (Manual) 1.1 K/mm3 (1.2-5.4) L 01/11/18 14:54 Abs React Lymphs (Man) 0.0 K/mm3 01/11/18 14:54 Monocytes # (Manual) 0.7 K/mm3 (0.0-0.8) 01/11/18 14:54 Eosinophils # (Manual) 1.8 K/mm3 (0.0-0.4) H 01/11/18 14:54 Basophils # (Manual) 0.0 K/mm3 (0.0-0.1) 01/11/18 14:54 Metamyelocytes # 0.0 K/mm3 01/11/18 14:54 Myelocytes # 0.0 K/mm3 01/11/18 14:54 Promyelocytes # 0.0 K/mm3 01/11/18 14:54 Blast Cells # 0.0 K/mm3 01/11/18 14:54 WBC Morphology Not Reportable 01/11/18 14:54 Hypersegmented Neuts Not Reportable 01/11/18 14:54 Hyposegmented Neuts Not Reportable 01/11/18 14:54 Hypogranular Neuts Not Reportable 01/11/18 14:54 Smudge Cells Not Reportable 01/11/18 14:54 Toxic Granulation Not Reportable 01/11/18 14:54 Toxic Vacuolation Not Reportable 01/11/18 14:54 Dohle Bodies Not Reportable 01/11/18 14:54 Pelger-Huet Anomaly Not Reportable 01/11/18 14:54 Afshin Rods Not Reportable 01/11/18 14:54 Platelet Estimate Consistent w auto 01/11/18 14:54 Clumped Platelets Not Reportable 01/11/18 14:54 Plt Clumps, EDTA Not Reportable 01/11/18 14:54 Large Platelets Not Reportable 01/11/18 14:54 Giant Platelets Not Reportable 01/11/18 14:54 Platelet Satelliting Not Reportable 01/11/18 14:54 Plt Morphology Comment Not Reportable 01/11/18 14:54 RBC Morphology Not Reportable 01/11/18 14:54 Dimorphic RBCs Not Reportable 01/11/18 14:54 Polychromasia Not Reportable 01/11/18 14:54 Hypochromasia Not Reportable 01/11/18 14:54 Poikilocytosis 1+ 01/11/18 14:54 Anisocytosis 1+ 01/11/18 14:54 Microcytosis Not Reportable 01/11/18 14:54 Macrocytosis Not Reportable 01/11/18 14:54 Spherocytes Not Reportable 01/11/18 14:54 Pappenheimer Bodies Not Reportable 01/11/18 14:54 Sickle Cells Not Reportable 01/11/18 14:54 Target Cells Not Reportable 01/11/18 14:54 Tear Drop Cells Not Reportable 01/11/18 14:54 Ovalocytes Not Reportable 01/11/18 14:54 Helmet Cells Not Reportable 01/11/18 14:54 Carpenter-Pass Christian Bodies Not Reportable 01/11/18 14:54 [place] Rings Not Reportable 01/11/18 14:54 [place] Cells Not Reportable 01/11/18 14:54 Bite Cells Not Reportable 01/11/18 14:54 Crenated Cell Not Reportable 01/11/18 14:54 Elliptocytes Not Reportable 01/11/18 14:54 Acanthocytes (Spur) Not Reportable 01/11/18 14:54 Rouleaux Not Reportable 01/11/18 14:54 Hemoglobin C Crystals Not Reportable 01/11/18 14:54 Schistocytes Not Reportable 01/11/18 14:54 Malaria parasites Not Reportable 01/11/18 14:54 Edil Bodies Not Reportable 01/11/18 14:54 Hem Pathologist Commnt No 01/11/18 14:54 PT 14.2 Sec. (12.2-14.9) 01/11/18 14:54 INR 1.05 (0.87-1.13) 01/11/18 14:54 D-Dimer > 26422 ng/mlDDU (0-234) H 01/11/18 14:54 Sodium 150 mmol/L (137-145) H 01/18/18 06:17 Potassium 4.8 mmol/L (3.6-5.0) 01/18/18 06:17 Chloride 112.2 mmol/L (98-107) H 01/18/18 06:17 Carbon Dioxide 25 mmol/L (22-30) 01/18/18 06:17 Anion Gap 18 mmol/L 01/18/18 06:17 BUN 23 mg/dL (7-17) H 01/18/18 06:17 Creatinine 0.8 mg/dL (0.7-1.2) 01/18/18 06:17 Estimated GFR > 60 ml/min 01/18/18 06:17 BUN/Creatinine Ratio 29 % 01/18/18 06:17 Glucose 109 mg/dL (65-100) H 01/18/18 06:17 POC Glucose 306 (70-105) H 01/17/18 21:24 Lactic Acid 1.50 mmol/L (0.7-2.0) 01/12/18 03:20 Calcium 9.9 mg/dL (8.4-10.2) 01/18/18 06:17 Phosphorus 3.40 mg/dL (2.5-4.5) 01/13/18 10:55 Magnesium 2.40 mg/dL (1.7-2.3) H 01/13/18 10:55 Iron 37 ug/dL (37-170) 01/16/18 17:43 TIBC 239 mcg/dL (250-450) L 01/16/18 17:43 Ferritin 511.5 ng/mL (13.0-400.0) H 01/16/18 17:43 Total Bilirubin 0.20 mg/dL (0.1-1.2) 01/16/18 06:04 AST 19 units/L (5-40) 01/16/18 06:04 ALT 9 units/L (7-56) 01/16/18 06:04 Alkaline Phosphatase 121 units/L (35-129) 01/16/18 06:04 Total Creatine Kinase 51 units/L (30-135) 01/11/18 14:54 CK-MB (CK-2) 2.2 ng/mL (0.0-4.0) 01/11/18 14:54 CK-MB (CK-2) Rel Index 4.3 (0-4) H 01/11/18 14:54 Troponin T 0.021 ng/mL (0.00-0.029) 01/11/18 14:54 NT-Pro-B Natriuret Pep 775.8 pg/mL (0-900) 01/11/18 14:55 Total Protein 6.7 g/dL (6.3-8.2) 01/16/18 06:04 Albumin 2.7 g/dL (3.9-5) L 01/16/18 06:04 Albumin/Globulin Ratio 0.7 % 01/16/18 06:04 Vitamin B12 475.5 pg/mL (211-911) 01/16/18 18:13 Folate 16.14 ng/mL (7.3-26.0) 01/16/18 18:13 Urine Color Red (Yellow) 01/11/18 13:50 Urine Turbidity Clear (Clear) 01/11/18 13:50 Urine pH 6.0 (5.0-7.0) 01/11/18 13:50 Ur Specific Blanket 1.003 (1.003-1.030) 01/11/18 13:50 Urine Protein <15 mg/dl mg/dL (Negative) 01/11/18 13:50 Urine Glucose (UA) Neg mg/dL (Negative) 01/11/18 13:50 Urine Ketones Neg mg/dL (Negative) 01/11/18 13:50 Urine Blood Sm (Negative) 01/11/18 13:50 Urine Nitrite Neg (Negative) 01/11/18 13:50 Urine Bilirubin Neg (Negative) 01/11/18 13:50 Urine Urobilinogen < 2.0 mg/dL (<2.0) 01/11/18 13:50 Ur Leukocyte Esterase Sm (Negative) 01/11/18 13:50 Urine WBC (Auto) 3.0 /HPF (0.0-6.0) 01/11/18 13:50 Urine RBC (Auto) 1.0 /HPF (0.0-6.0) 01/11/18 13:50 U Epithel Cells (Auto) 1.0 /HPF (0-13.0) 01/11/18 13:50 Urine Bacteria (Auto) 1+ /HPF (Negative) 01/11/18 13:50 Urine Mucus Few /HPF 01/11/18 13:50 Lymph Enumerat CD4/CD8 0.36 (0.86-5.00) L 01/13/18 10:55 % CD3 Cells 62 % (57-85) 01/13/18 10:55 Absolute CD3 Count 362 cells/uL (840-3060) L 01/13/18 10:55 % CD4 Cells 17 % (30-61) L 01/13/18 10:55 Absolute CD4 Count 101 cells/uL (490-1740) L 01/13/18 10:55 % CD8 Cells 46 % (12-42) H 01/13/18 10:55 Absolute CD8 Count 276 cells/uL (180-1170) 01/13/18 10:55 % CD19 Cells 26 % (6-29) 01/13/18 10:55 Absolute CD19 Count 143 cells/uL (110-660) 01/13/18 10:55 HIV-1 RNA PCR copies/ml 98 Copies/mL H 01/13/18 10:55 HIV-1 RNA (PCR) log 1.99 Log cps/mL H 01/13/18 10:55 TB (QFT) Gold In Tube Negative (Negative) 01/13/18 09:44 TB Test (QFT) Nil 0.02 IU/mL 01/13/18 09:44 TB Test Mitogen - Nil 9.00 IU/mL 01/13/18 09:44 TB Test Antigen - Nil 0.02 IU/mL 01/13/18 09:44 Miscellaneous Test Flexitest 1 01/13/18 09:37 <JUNE GALAN - Last Filed: 01/19/18 09:21> Assessment and Plan Assessment and plan: Metastatic lung cancer on CT chest Oxygen, nebulizers, supportive care, pulmonary consultation, oncology following- s/p Excisional biopsy of abdominal wall nodule 01/15 preliminary results show metastatic poorly differentiated carcinoma, pending immunostains to determine origin History of HIV AIDS; 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, ID following Sepsis; secondary to pneumonia, community-acquired Continue IV antibiotics, follow cultures, pulmonary consult Lactic acidosis resolved Lactic acidosis secondary to sepsis, resolved Cachexia/Severe protein malnutrition 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 No new issues overnight. Labs and nursing notes reviewed. Hospitalist Physical - Constitutional Vitals: Temp Pulse Resp BP Pulse Ox 97.8 F 101 H 18 120/88 96 01/18/18 07:56 01/18/18 09:44 01/18/18 09:44 01/18/18 07:56 01/18/18 09:34 General appearance: Present: no acute distress, cachectic, disheveled - EENT Eyes: Present: PERRL, EOM intact ENT: hearing intact, clear oral mucosa, poor dentition - Neck Neck: Present: supple, normal ROM - Respiratory Respiratory effort: normal Respiratory: bilateral: wheezing - Cardiovascular Rhythm: regular Heart Sounds: Present: S1 & S2 - Extremities Extremities: no ischemia, No edema - Abdominal General gastrointestinal: soft, non-tender, non-distended - Integumentary Integumentary: Present: clear, warm, dry - Psychiatric Psychiatric: appropriate mood/affect, intact judgment & insight, cooperative - Neurologic Neurologic: CNII-XII intact, moves all extremities Results - Labs CBC & Chem 7: 01/18/18 06:17 01/18/18 06:17 Labs: Laboratory Last Values WBC 10.7 K/mm3 (4.5-11.0) 01/18/18 06:17 RBC 4.48 M/mm3 (3.65-5.03) 01/18/18 06:17 Hgb 10.8 gm/dl (10.1-14.3) 01/18/18 06:17 Hct 34.2 % (30.3-42.9) 01/18/18 06:17 MCV 76 fl (79-97) L 01/18/18 06:17 MCH 24 pg (28-32) L 01/18/18 06:17 MCHC 31 % (30-34) 01/18/18 06:17 RDW 16.9 % (13.2-15.2) H 01/18/18 06:17 Plt Count 133 K/mm3 (140-440) L 01/18/18 06:17 Lymph % (Auto) 5.7 % (13.4-35.0) L 01/18/18 06:17 Walker % (Auto) 8.6 % (0.0-7.3) H 01/18/18 06:17 Eos % (Auto) 0.3 % (0.0-4.3) 01/18/18 06:17 Baso % (Auto) 0.2 % (0.0-1.8) 01/18/18 06:17 Lymph # 0.6 K/mm3 (1.2-5.4) L 01/18/18 06:17 Walker # 0.9 K/mm3 (0.0-0.8) H 01/18/18 06:17 Eos # 0.0 K/mm3 (0.0-0.4) 01/18/18 06:17 Baso # 0.0 K/mm3 (0.0-0.1) 01/18/18 06:17 Add Manual Diff Complete 01/11/18 14:54 Total Counted 100 01/11/18 14:54 Seg Neutrophils % 85.2 % (40.0-70.0) H 01/18/18 06:17 Seg Neuts % (Manual) 74.0 % (40.0-70.0) H 01/11/18 14:54 Band Neutrophils % 0 % 01/11/18 14:54 Lymphocytes % (Manual) 8.0 % (13.4-35.0) L 01/11/18 14:54 Reactive Lymphs % (Man) 0 % 01/11/18 14:54 Monocytes % (Manual) 5.0 % (0.0-7.3) 01/11/18 14:54 Eosinophils % (Manual) 13.0 % (0.0-4.3) H 01/11/18 14:54 Basophils % (Manual) 0 % (0.0-1.8) 01/11/18 14:54 Metamyelocytes % 0 % 01/11/18 14:54 Myelocytes % 0 % 01/11/18 14:54 Promyelocytes % 0 % 01/11/18 14:54 Blast Cells % 0 % 01/11/18 14:54 Nucleated RBC % Not Reportable 01/11/18 14:54 Seg Neutrophils # 9.1 K/mm3 (1.8-7.7) H 01/18/18 06:17 Seg Neutrophils # Man 10.5 K/mm3 (1.8-7.7) H 01/11/18 14:54 Band Neutrophils # 0.0 K/mm3 01/11/18 14:54 Abs Lymphs (Manual) 581 cells/uL (850-3900) L 01/13/18 10:55 Lymphocytes # (Manual) 1.1 K/mm3 (1.2-5.4) L 01/11/18 14:54 Abs React Lymphs (Man) 0.0 K/mm3 01/11/18 14:54 Monocytes # (Manual) 0.7 K/mm3 (0.0-0.8) 01/11/18 14:54 Eosinophils # (Manual) 1.8 K/mm3 (0.0-0.4) H 01/11/18 14:54 Basophils # (Manual) 0.0 K/mm3 (0.0-0.1) 01/11/18 14:54 Metamyelocytes # 0.0 K/mm3 01/11/18 14:54 Myelocytes # 0.0 K/mm3 01/11/18 14:54 Promyelocytes # 0.0 K/mm3 01/11/18 14:54 Blast Cells # 0.0 K/mm3 01/11/18 14:54 WBC Morphology Not Reportable 01/11/18 14:54 Hypersegmented Neuts Not Reportable 01/11/18 14:54 Hyposegmented Neuts Not Reportable 01/11/18 14:54 Hypogranular Neuts Not Reportable 01/11/18 14:54 Smudge Cells Not Reportable 01/11/18 14:54 Toxic Granulation Not Reportable 01/11/18 14:54 Toxic Vacuolation Not Reportable 01/11/18 14:54 Dohle Bodies Not Reportable 01/11/18 14:54 Pelger-Huet Anomaly Not Reportable 01/11/18 14:54 Afshin Rods Not Reportable 01/11/18 14:54 Platelet Estimate Consistent w auto 01/11/18 14:54 Clumped Platelets Not Reportable 01/11/18 14:54 Plt Clumps, EDTA Not Reportable 01/11/18 14:54 Large Platelets Not Reportable 01/11/18 14:54 Giant Platelets Not Reportable 01/11/18 14:54 Platelet Satelliting Not Reportable 01/11/18 14:54 Plt Morphology Comment Not Reportable 01/11/18 14:54 RBC Morphology Not Reportable 01/11/18 14:54 Dimorphic RBCs Not Reportable 01/11/18 14:54 Polychromasia Not Reportable 01/11/18 14:54 Hypochromasia Not Reportable 01/11/18 14:54 Poikilocytosis 1+ 01/11/18 14:54 Anisocytosis 1+ 01/11/18 14:54 Microcytosis Not Reportable 01/11/18 14:54 Macrocytosis Not Reportable 01/11/18 14:54 Spherocytes Not Reportable 01/11/18 14:54 Pappenheimer Bodies Not Reportable 01/11/18 14:54 Sickle Cells Not Reportable 01/11/18 14:54 Target Cells Not Reportable 01/11/18 14:54 Tear Drop Cells Not Reportable 01/11/18 14:54 Ovalocytes Not Reportable 01/11/18 14:54 Helmet Cells Not Reportable 01/11/18 14:54 [place]-Pass Christian Bodies Not Reportable 01/11/18 14:54 [place] Rings Not Reportable 01/11/18 14:54 [place] Cells Not Reportable 01/11/18 14:54 Bite Cells Not Reportable 01/11/18 14:54 Crenated Cell Not Reportable 01/11/18 14:54 Elliptocytes Not Reportable 01/11/18 14:54 Acanthocytes (Spur) Not Reportable 01/11/18 14:54 Rouleaux Not Reportable 01/11/18 14:54 Hemoglobin C Crystals Not Reportable 01/11/18 14:54 Schistocytes Not Reportable 01/11/18 14:54 Malaria parasites Not Reportable 01/11/18 14:54 Edil Bodies Not Reportable 01/11/18 14:54 Hem Pathologist Commnt No 01/11/18 14:54 PT 14.2 Sec. (12.2-14.9) 01/11/18 14:54 INR 1.05 (0.87-1.13) 01/11/18 14:54 D-Dimer > 44529 ng/mlDDU (0-234) H 01/11/18 14:54 Sodium 150 mmol/L (137-145) H 01/18/18 06:17 Potassium 4.8 mmol/L (3.6-5.0) 01/18/18 06:17 Chloride 112.2 mmol/L (98-107) H 01/18/18 06:17 Carbon Dioxide 25 mmol/L (22-30) 01/18/18 06:17 Anion Gap 18 mmol/L 01/18/18 06:17 BUN 23 mg/dL (7-17) H 01/18/18 06:17 Creatinine 0.8 mg/dL (0.7-1.2) 01/18/18 06:17 Estimated GFR > 60 ml/min 01/18/18 06:17 BUN/Creatinine Ratio 29 % 01/18/18 06:17 Glucose 109 mg/dL (65-100) H 01/18/18 06:17 POC Glucose 306 (70-105) H 01/17/18 21:24 Lactic Acid 1.50 mmol/L (0.7-2.0) 01/12/18 03:20 Calcium 9.9 mg/dL (8.4-10.2) 01/18/18 06:17 Phosphorus 3.40 mg/dL (2.5-4.5) 01/13/18 10:55 Magnesium 2.40 mg/dL (1.7-2.3) H 01/13/18 10:55 Iron 37 ug/dL (37-170) 01/16/18 17:43 TIBC 239 mcg/dL (250-450) L 01/16/18 17:43 Ferritin 511.5 ng/mL (13.0-400.0) H 01/16/18 17:43 Total Bilirubin 0.20 mg/dL (0.1-1.2) 01/16/18 06:04 AST 19 units/L (5-40) 01/16/18 06:04 ALT 9 units/L (7-56) 01/16/18 06:04 Alkaline Phosphatase 121 units/L (35-129) 01/16/18 06:04 Total Creatine Kinase 51 units/L (30-135) 01/11/18 14:54 CK-MB (CK-2) 2.2 ng/mL (0.0-4.0) 01/11/18 14:54 CK-MB (CK-2) Rel Index 4.3 (0-4) H 01/11/18 14:54 Troponin T 0.021 ng/mL (0.00-0.029) 01/11/18 14:54 NT-Pro-B Natriuret Pep 775.8 pg/mL (0-900) 01/11/18 14:55 Total Protein 6.7 g/dL (6.3-8.2) 01/16/18 06:04 Albumin 2.7 g/dL (3.9-5) L 01/16/18 06:04 Albumin/Globulin Ratio 0.7 % 01/16/18 06:04 Vitamin B12 475.5 pg/mL (211-911) 01/16/18 18:13 Folate 16.14 ng/mL (7.3-26.0) 01/16/18 18:13 Urine Color Red (Yellow) 01/11/18 13:50 Urine Turbidity Clear (Clear) 01/11/18 13:50 Urine pH 6.0 (5.0-7.0) 01/11/18 13:50 Ur Specific Blanket 1.003 (1.003-1.030) 01/11/18 13:50 Urine Protein <15 mg/dl mg/dL (Negative) 01/11/18 13:50 Urine Glucose (UA) Neg mg/dL (Negative) 01/11/18 13:50 Urine Ketones Neg mg/dL (Negative) 01/11/18 13:50 Urine Blood Sm (Negative) 01/11/18 13:50 Urine Nitrite Neg (Negative) 01/11/18 13:50 Urine Bilirubin Neg (Negative) 01/11/18 13:50 Urine Urobilinogen < 2.0 mg/dL (<2.0) 01/11/18 13:50 Ur Leukocyte Esterase Sm (Negative) 01/11/18 13:50 Urine WBC (Auto) 3.0 /HPF (0.0-6.0) 01/11/18 13:50 Urine RBC (Auto) 1.0 /HPF (0.0-6.0) 01/11/18 13:50 U Epithel Cells (Auto) 1.0 /HPF (0-13.0) 01/11/18 13:50 Urine Bacteria (Auto) 1+ /HPF (Negative) 01/11/18 13:50 Urine Mucus Few /HPF 01/11/18 13:50 Lymph Enumerat CD4/CD8 0.36 (0.86-5.00) L 01/13/18 10:55 % CD3 Cells 62 % (57-85) 01/13/18 10:55 Absolute CD3 Count 362 cells/uL (840-3060) L 01/13/18 10:55 % CD4 Cells 17 % (30-61) L 01/13/18 10:55 Absolute CD4 Count 101 cells/uL (490-1740) L 01/13/18 10:55 % CD8 Cells 46 % (12-42) H 01/13/18 10:55 Absolute CD8 Count 276 cells/uL (180-1170) 01/13/18 10:55 % CD19 Cells 26 % (6-29) 01/13/18 10:55 Absolute CD19 Count 143 cells/uL (110-660) 01/13/18 10:55 HIV-1 RNA PCR copies/ml 98 Copies/mL H 01/13/18 10:55 HIV-1 RNA (PCR) log 1.99 Log cps/mL H 01/13/18 10:55 TB (QFT) Gold In Tube Negative (Negative) 01/13/18 09:44 TB Test (QFT) Nil 0.02 IU/mL 01/13/18 09:44 TB Test Mitogen - Nil 9.00 IU/mL 01/13/18 09:44 TB Test Antigen - Nil 0.02 IU/mL 01/13/18 09:44 Miscellaneous Test Flexitest 1 01/13/18 09:37
[2018-01-18] MEDS ORDERED: VITAMIN D2 PO SCH (10:00)
--- NOTE | 2018-01-18 10:16 | Progress Note ---
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 prednisone) - Substance abuse counselling done - Nicotine withdrawal precautions -case discussed with ID ....[id number] Subjective Date of service: 01/18/18 Principal diagnosis: Abnormal CT Chest; Lung Masses; HIV positive Interval history: Patient is seen today for: Abnormal CT Chest; Lung Masses; HIV positive Seen and examined at bedside; 24hour events reviewed; nursing and respiratory care staff consulted; no adverse overnight events reported to me; resting in bed ; feels a little stronger; No N/V/F/C; path confirms adenocarcinoma Objective Vital Signs - 12hr 01/18/18 01/18/18 01/18/18 04:00 07:56 09:30 Temperature 97.7 F 97.8 F Pulse Rate 104 H 100 H Pulse Rate [ 102 H Anterior Bilateral Throughout] Respiratory 20 24 Rate Respiratory 18 Rate [Anterior Bilateral Throughout] Blood Pressure 120/88 Blood Pressure 108/72 [Left] O2 Sat by Pulse 96 Oximetry 01/18/18 01/18/18 09:34 09:44 Temperature Pulse Rate Pulse Rate [ 101 H Anterior Bilateral Throughout] Respiratory Rate Respiratory 18 Rate [Anterior Bilateral Throughout] Blood Pressure Blood Pressure [Left] O2 Sat by Pulse 96 Oximetry Constitutional: no acute distress, alert, other (looks chronically ill) Eyes: non-icteric ENT: oropharynx moist, other (no thyromegaly) Neck: supple, lymphadenopathy, no JVD Effort: mildly labored Ascultation: Bilateral: diminished breath sounds, rales (scant in bases) Percussion: Bilateral: not dull Cardiovascular: regular rate and rhythm, other (no rubs or murmurs) Gastrointestinal: normoactive bowel sounds, soft, non-tender, non-distended, other (no palpable HSM) Integumentary: other (poor turgor; subQ nodules in anterior abdominal plane) Extremities: no cyanosis, no edema, pink and warm, pulses normal Neurologic: normal mental status, non-focal exam, pupils equal and round, CN II- XII normal Psychiatric: mood appropriate, affect normal CBC and BMP: 01/18/18 06:17 01/18/18 06:17 ABG, PT/INR, D-dimer: PT/INR, D-dimer PT 14.2 Sec. (12.2-14.9) 01/11/18 14:54 INR 1.05 (0.87-1.13) 01/11/18 14:54 D-Dimer > 11313 ng/mlDDU (0-234) H 01/11/18 14:54 Abnormal lab findings: Abnormal Labs 01/11/18 01/11/18 01/11/18 14:54 14:54 14:54 WBC 14.2 H RBC 5.35 H Hct 43.0 H MCV MCH 23 L MCHC 29 L RDW 17.9 H Plt Count Lymph % (Auto) [place] % (Auto) Lymph # [place] # Seg Neutrophils % Seg Neuts % (Manual) 74.0 H Lymphocytes % (Manual) 8.0 L Eosinophils % (Manual) 13.0 H Seg Neutrophils # Seg Neutrophils # Man 10.5 H Abs Lymphs (Manual) Lymphocytes # (Manual) 1.1 L Eosinophils # (Manual) 1.8 H D-Dimer > 75501 H Sodium Chloride Carbon Dioxide 20 L BUN Creatinine 0.5 L Glucose POC Glucose Lactic Acid Magnesium 2.60 H TIBC Ferritin CK-MB (CK-2) Rel Index 4.3 H Albumin 2.7 L Lymph Enumerat CD4/CD8 Absolute CD3 Count % CD4 Cells Absolute CD4 Count % CD8 Cells HIV-1 RNA PCR copies/ml HIV-1 RNA (PCR) log 01/11/18 01/11/18 01/11/18 15:19 20:49 21:42 WBC RBC Hct MCV MCH MCHC RDW Plt Count Lymph % (Auto) [place] % (Auto) Lymph # [place] # Seg Neutrophils % Seg Neuts % (Manual) Lymphocytes % (Manual) Eosinophils % (Manual) Seg Neutrophils # Seg Neutrophils # Man Abs Lymphs (Manual) Lymphocytes # (Manual) Eosinophils # (Manual) D-Dimer Sodium Chloride Carbon Dioxide BUN Creatinine Glucose POC Glucose Lactic Acid 3.20 H* 3.70 H* 4.00 H* Magnesium TIBC Ferritin CK-MB (CK-2) Rel Index Albumin Lymph Enumerat CD4/CD8 Absolute CD3 Count % CD4 Cells Absolute CD4 Count % CD8 Cells HIV-1 RNA PCR copies/ml HIV-1 RNA (PCR) log 01/13/18 01/13/18 01/13/18 10:55 10:55 10:55 WBC RBC Hct MCV MCH MCHC RDW Plt Count Lymph % (Auto) [place] % (Auto) Lymph # [place] # Seg Neutrophils % Seg Neuts % (Manual) Lymphocytes % (Manual) Eosinophils % (Manual) Seg Neutrophils # Seg Neutrophils # Man Abs Lymphs (Manual) 581 L Lymphocytes # (Manual) Eosinophils # (Manual) D-Dimer Sodium 154 H D Chloride 118.7 H Carbon Dioxide 20 L BUN Creatinine 0.5 L Glucose 208 H POC Glucose Lactic Acid Magnesium 2.40 H TIBC Ferritin CK-MB (CK-2) Rel Index Albumin Lymph Enumerat CD4/CD8 0.36 L Absolute CD3 Count 362 L % CD4 Cells 17 L Absolute CD4 Count 101 L % CD8 Cells 46 H HIV-1 RNA PCR copies/ml 98 H HIV-1 RNA (PCR) log 1.99 H 01/13/18 01/14/18 01/14/18 12:28 07:28 07:28 WBC 14.4 H 11.2 H RBC Hct MCV 77 L 76 L MCH 24 L 24 L MCHC RDW 16.6 H 16.5 H Plt Count 137 L Lymph % (Auto) 4.4 L [place] % (Auto) Lymph # 0.6 L [place] # 0.9 H Seg Neutrophils % 88.4 H Seg Neuts % (Manual) Lymphocytes % (Manual) Eosinophils % (Manual) Seg Neutrophils # 12.7 H Seg Neutrophils # Man Abs Lymphs (Manual) Lymphocytes # (Manual) Eosinophils # (Manual) D-Dimer Sodium 155 H Chloride 120.3 H Carbon Dioxide BUN Creatinine 0.4 L Glucose 111 H POC Glucose Lactic Acid Magnesium TIBC Ferritin CK-MB (CK-2) Rel Index Albumin Lymph Enumerat CD4/CD8 Absolute CD3 Count % CD4 Cells Absolute CD4 Count % CD8 Cells HIV-1 RNA PCR copies/ml HIV-1 RNA (PCR) log 01/15/18 01/15/18 01/16/18 08:05 08:05 06:04 WBC 11.2 H RBC Hct MCV 76 L 76 L MCH 24 L 24 L MCHC RDW 16.6 H 16.8 H Plt Count 115 L 110 L Lymph % (Auto) 6.5 L [place] % (Auto) 9.7 H Lymph # 0.7 L [place] # 1.1 H Seg Neutrophils % 83.2 H Seg Neuts % (Manual) Lymphocytes % (Manual) Eosinophils % (Manual) Seg Neutrophils # 9.3 H Seg Neutrophils # Man Abs Lymphs (Manual) Lymphocytes # (Manual) Eosinophils # (Manual) D-Dimer Sodium 149 H Chloride 113.4 H Carbon Dioxide BUN Creatinine 0.5 L Glucose 106 H POC Glucose Lactic Acid Magnesium TIBC Ferritin CK-MB (CK-2) Rel Index Albumin Lymph Enumerat CD4/CD8 Absolute CD3 Count % CD4 Cells Absolute CD4 Count % CD8 Cells HIV-1 RNA PCR copies/ml HIV-1 RNA (PCR) log 01/16/18 01/16/18 01/16/18 06:04 12:19 17:21 WBC RBC Hct MCV MCH MCHC RDW Plt Count Lymph % (Auto) [place] % (Auto) Lymph # [place] # Seg Neutrophils % Seg Neuts % (Manual) Lymphocytes % (Manual) Eosinophils % (Manual) Seg Neutrophils # Seg Neutrophils # Man Abs Lymphs (Manual) Lymphocytes # (Manual) Eosinophils # (Manual) D-Dimer Sodium 146 H Chloride 110.5 H Carbon Dioxide BUN 21 H Creatinine Glucose 112 H POC Glucose 145 H 232 H Lactic Acid Magnesium TIBC Ferritin CK-MB (CK-2) Rel Index Albumin 2.7 L Lymph Enumerat CD4/CD8 Absolute CD3 Count % CD4 Cells Absolute CD4 Count % CD8 Cells HIV-1 RNA PCR copies/ml HIV-1 RNA (PCR) log 01/16/18 01/16/18 01/16/18 17:43 17:43 21:25 WBC RBC Hct MCV MCH MCHC RDW Plt Count Lymph % (Auto) [place] % (Auto) Lymph # [place] # Seg Neutrophils % Seg Neuts % (Manual) Lymphocytes % (Manual) Eosinophils % (Manual) Seg Neutrophils # Seg Neutrophils # Man Abs Lymphs (Manual) Lymphocytes # (Manual) Eosinophils # (Manual) D-Dimer Sodium Chloride Carbon Dioxide BUN Creatinine Glucose POC Glucose 253 H Lactic Acid Magnesium TIBC 239 L Ferritin 511.5 H CK-MB (CK-2) Rel Index Albumin Lymph Enumerat CD4/CD8 Absolute CD3 Count % CD4 Cells Absolute CD4 Count % CD8 Cells HIV-1 RNA PCR copies/ml HIV-1 RNA (PCR) log 01/17/18 01/17/18 01/17/18 06:07 06:07 06:22 WBC 12.0 H RBC Hct MCV 78 L MCH 24 L MCHC RDW 17.0 H Plt Count 122 L Lymph % (Auto) 5.8 L [place] % (Auto) Lymph # 0.7 L [place] # Seg Neutrophils % 88.5 H Seg Neuts % (Manual) Lymphocytes % (Manual) Eosinophils % (Manual) Seg Neutrophils # 10.6 H Seg Neutrophils # Man Abs Lymphs (Manual) Lymphocytes # (Manual) Eosinophils # (Manual) D-Dimer Sodium 146 H Chloride 110.9 H Carbon Dioxide BUN 19 H Creatinine Glucose 109 H POC Glucose 170 H Lactic Acid Magnesium TIBC Ferritin CK-MB (CK-2) Rel Index Albumin Lymph Enumerat CD4/CD8 Absolute CD3 Count % CD4 Cells Absolute CD4 Count % CD8 Cells HIV-1 RNA PCR copies/ml HIV-1 RNA (PCR) log 01/17/18 01/17/18 01/17/18 11:25 15:25 21:24 WBC RBC Hct MCV MCH MCHC RDW Plt Count Lymph % (Auto) [place] % (Auto) Lymph # [place] # Seg Neutrophils % Seg Neuts % (Manual) Lymphocytes % (Manual) Eosinophils % (Manual) Seg Neutrophils # Seg Neutrophils # Man Abs Lymphs (Manual) Lymphocytes # (Manual) Eosinophils # (Manual) D-Dimer Sodium Chloride Carbon Dioxide BUN Creatinine Glucose POC Glucose 125 H 126 H 306 H Lactic Acid Magnesium TIBC Ferritin CK-MB (CK-2) Rel Index Albumin Lymph Enumerat CD4/CD8 Absolute CD3 Count % CD4 Cells Absolute CD4 Count % CD8 Cells HIV-1 RNA PCR copies/ml HIV-1 RNA (PCR) log 01/18/18 01/18/18 06:17 06:17 WBC RBC Hct MCV 76 L MCH 24 L MCHC RDW 16.9 H Plt Count 133 L Lymph % (Auto) 5.7 L [place] % (Auto) 8.6 H Lymph # 0.6 L [place] # 0.9 H Seg Neutrophils % 85.2 H Seg Neuts % (Manual) Lymphocytes % (Manual) Eosinophils % (Manual) Seg Neutrophils # 9.1 H Seg Neutrophils # Man Abs Lymphs (Manual) Lymphocytes # (Manual) Eosinophils # (Manual) D-Dimer Sodium 150 H Chloride 112.2 H Carbon Dioxide BUN 23 H Creatinine Glucose 109 H POC Glucose Lactic Acid Magnesium TIBC Ferritin CK-MB (CK-2) Rel Index Albumin Lymph Enumerat CD4/CD8 Absolute CD3 Count % CD4 Cells Absolute CD4 Count % CD8 Cells HIV-1 RNA PCR copies/ml HIV-1 RNA (PCR) log
--- NOTE | 2018-01-18 14:36 | Progress Note ---
Assessment and Plan Assessment: 1) SIRS: better, still leukocytosis. Etio. ? malignancy 2) Pulmonary nodules and hilar, mediastinal lymphadenopathy, with metastatic disease to liver, bones, skin, muscular seen on CT C/A/P. Highly suggestive of malignancy. - Quantiferon TB negative - Aspergillus ag negative - Abdominal LN biopsy + adenocarcinoma. 3) Bilateral hydronephrosis (L>R). UA unremarkable 4) Recent diagnosis of HIV/AIDS at [facility]. On Descovy and Tivicay and OI prophylaxis with bactrim. - JM1=413 / VL=98 on 01/13/18 5) Cachexia/Severe protein caloric malnutrition. 6) Generalized lymphadenopathy - due to HIV +/- malignancy. - S/P Excisional biopsy of abdominal wall nodules 01/14/18 + presumed adenocarcinoma 7) Probable COPD 8) Syncope 9) Poly-substance abuse: crack/cocaine, tobacco. Recommendations: -Hem/onc consult -Continue HAART. -Continue PJP prophylaxis with bactrim and MAC prophylaxis with azithromycin -f/u Legionella ag, pneumococcal ag and Histoplasma urinary antigens Guarded prognosis Griselda Lucio MD Infectious Diseases Specialist [facility] [phone] Subjective Date of service: 01/18/18 Principal diagnosis: Abnormal CT Chest; Lung Masses; HIV positive Interval history: Feels ok no complaints Micro: Blood cultures: 01/11 neg Cryptococcal ag serum 01/13 negative Current Antimicrobials: Ceftriaxone 01/11- Azithromycin 01/11- Bactrim 01/11- HAART: Descovy and Tivicay Previous Antimicrobials: Levaquin x1 01/11 Other meds: Solumedrol 01/11- Objective - Exam Narrative Exam: General appearance: Alert in NAD, conversant, cachectic. On NC. Eyes: anicteric sclerae, moist conjunctivae; PERRLA, EOMI. HENT: Atraumatic; oropharynx clear, with moist mucous membranes and no mucosal ulcerations/no oral thrush; normal hard and soft palate. Normal external ears. Neck: Supple Lungs: CTA, with normal respiratory effort and no intercostal retractions CV: S1,S2. RRR. Abdomen: +BS. Soft. +TTP diffusely. Palpable masses anterior abdominal wall. Extremities: No c/c/e. Skin: No rash, no open wounds. Lymph nodes: palpable LN, cervical, axillary, inguinal. Psych: Appropriate affect, alert and oriented to person, place and time. Neuro: alert and oriented x 3. Grossly non-focal Lines: No CVL / PICC - Constitutional Vitals: Vital Signs Temp Pulse Resp BP Pulse Ox 97.9 F 104 H 20 109/78 93 01/18/18 11:35 01/18/18 11:35 01/18/18 11:35 01/18/18 11:35 01/18/18 11:35 Temperature -Last 24 Hours Temperature 97.9 F Temperature 97.8 F Temperature 97.7 F Temperature 98.0 F Temperature 98.4 F - Labs CBC & Chem 7: 01/18/18 06:17 01/18/18 06:17 Labs: Abnormal lab results 01/17/18 01/17/18 01/18/18 Range/Units 15:25 21:24 06:17 MCV 76 L (79-97) fl MCH 24 L (28-32) pg RDW 16.9 H (13.2-15.2) % Plt Count 133 L (140-440) K/mm3 Lymph % (Auto) 5.7 L (13.4-35.0) % [place] % (Auto) 8.6 H (0.0-7.3) % Lymph # 0.6 L (1.2-5.4) K/mm3 [place] # 0.9 H (0.0-0.8) K/mm3 Seg Neutrophils % 85.2 H (40.0-70.0) % Seg Neutrophils # 9.1 H (1.8-7.7) K/mm3 Sodium (137-145) mmol/L Chloride (98-107) mmol/L BUN (7-17) mg/dL Glucose (65-100) mg/dL POC Glucose 126 H 306 H (70-105) 01/18/18 Range/Units 06:17 MCV (79-97) fl MCH (28-32) pg RDW (13.2-15.2) % Plt Count (140-440) K/mm3 Lymph % (Auto) (13.4-35.0) % [place] % (Auto) (0.0-7.3) % Lymph # (1.2-5.4) K/mm3 [place] # (0.0-0.8) K/mm3 Seg Neutrophils % (40.0-70.0) % Seg Neutrophils # (1.8-7.7) K/mm3 Sodium 150 H (137-145) mmol/L Chloride 112.2 H (98-107) mmol/L BUN 23 H (7-17) mg/dL Glucose 109 H (65-100) mg/dL POC Glucose (70-105)
[2018-01-18] MEDS ORDERED: D5W 1,000 ML IV SCH (18:00)
[2018-01-18] MEDS: D5W 1,000 ML IV SCH (18:10)
[2018-01-19] MEDS: SODIUM CHLORIDE FLUSH SYRINGE 10 ML IV SCH ×2 (00:15→10:47)
[2018-01-19] MEDS: NORCO 5/325 PO PRN ×4 (01:55→23:19)
[2018-01-19] MEDS: DUONEB *Not for PRN Use IH SCH ×3 (07:58→20:13)
--- NOTE | 2018-01-19 09:25 | Progress Note ---
Hospitalist Physical - Constitutional Vitals: Temp Pulse Resp BP Pulse Ox 97.8 F 98 H 18 128/80 97 01/19/18 07:31 01/19/18 08:00 01/19/18 08:00 01/19/18 07:31 01/19/18 08:02 General appearance: Present: no acute distress, cachectic, disheveled Results - Labs CBC & Chem 7: 01/18/18 06:17 01/18/18 06:17 Labs: Laboratory Last Values WBC 10.7 K/mm3 (4.5-11.0) 01/18/18 06:17 RBC 4.48 M/mm3 (3.65-5.03) 01/18/18 06:17 Hgb 10.8 gm/dl (10.1-14.3) 01/18/18 06:17 Hct 34.2 % (30.3-42.9) 01/18/18 06:17 MCV 76 fl (79-97) L 01/18/18 06:17 MCH 24 pg (28-32) L 01/18/18 06:17 MCHC 31 % (30-34) 01/18/18 06:17 RDW 16.9 % (13.2-15.2) H 01/18/18 06:17 Plt Count 133 K/mm3 (140-440) L 01/18/18 06:17 Lymph % (Auto) 5.7 % (13.4-35.0) L 01/18/18 06:17 [place] % (Auto) 8.6 % (0.0-7.3) H 01/18/18 06:17 Eos % (Auto) 0.3 % (0.0-4.3) 01/18/18 06:17 Baso % (Auto) 0.2 % (0.0-1.8) 01/18/18 06:17 Lymph # 0.6 K/mm3 (1.2-5.4) L 01/18/18 06:17 [place] # 0.9 K/mm3 (0.0-0.8) H 01/18/18 06:17 Eos # 0.0 K/mm3 (0.0-0.4) 01/18/18 06:17 Baso # 0.0 K/mm3 (0.0-0.1) 01/18/18 06:17 Add Manual Diff Complete 01/11/18 14:54 Total Counted 100 01/11/18 14:54 Seg Neutrophils % 85.2 % (40.0-70.0) H 01/18/18 06:17 Seg Neuts % (Manual) 74.0 % (40.0-70.0) H 01/11/18 14:54 Band Neutrophils % 0 % 01/11/18 14:54 Lymphocytes % (Manual) 8.0 % (13.4-35.0) L 01/11/18 14:54 Reactive Lymphs % (Man) 0 % 01/11/18 14:54 Monocytes % (Manual) 5.0 % (0.0-7.3) 01/11/18 14:54 Eosinophils % (Manual) 13.0 % (0.0-4.3) H 01/11/18 14:54 Basophils % (Manual) 0 % (0.0-1.8) 01/11/18 14:54 Metamyelocytes % 0 % 01/11/18 14:54 Myelocytes % 0 % 01/11/18 14:54 Promyelocytes % 0 % 01/11/18 14:54 Blast Cells % 0 % 01/11/18 14:54 Nucleated RBC % Not Reportable 01/11/18 14:54 Seg Neutrophils # 9.1 K/mm3 (1.8-7.7) H 01/18/18 06:17 Seg Neutrophils # Man 10.5 K/mm3 (1.8-7.7) H 01/11/18 14:54 Band Neutrophils # 0.0 K/mm3 01/11/18 14:54 Abs Lymphs (Manual) 581 cells/uL (850-3900) L 01/13/18 10:55 Lymphocytes # (Manual) 1.1 K/mm3 (1.2-5.4) L 01/11/18 14:54 Abs React Lymphs (Man) 0.0 K/mm3 01/11/18 14:54 Monocytes # (Manual) 0.7 K/mm3 (0.0-0.8) 01/11/18 14:54 Eosinophils # (Manual) 1.8 K/mm3 (0.0-0.4) H 01/11/18 14:54 Basophils # (Manual) 0.0 K/mm3 (0.0-0.1) 01/11/18 14:54 Metamyelocytes # 0.0 K/mm3 01/11/18 14:54 Myelocytes # 0.0 K/mm3 01/11/18 14:54 Promyelocytes # 0.0 K/mm3 01/11/18 14:54 Blast Cells # 0.0 K/mm3 01/11/18 14:54 WBC Morphology Not Reportable 01/11/18 14:54 Hypersegmented Neuts Not Reportable 01/11/18 14:54 Hyposegmented Neuts Not Reportable 01/11/18 14:54 Hypogranular Neuts Not Reportable 01/11/18 14:54 Smudge Cells Not Reportable 01/11/18 14:54 Toxic Granulation Not Reportable 01/11/18 14:54 Toxic Vacuolation Not Reportable 01/11/18 14:54 Dohle Bodies Not Reportable 01/11/18 14:54 Pelger-Huet Anomaly Not Reportable 01/11/18 14:54 Afshin Rods Not Reportable 01/11/18 14:54 Platelet Estimate Consistent w auto 01/11/18 14:54 Clumped Platelets Not Reportable 01/11/18 14:54 Plt Clumps, EDTA Not Reportable 01/11/18 14:54 Large Platelets Not Reportable 01/11/18 14:54 Giant Platelets Not Reportable 01/11/18 14:54 Platelet Satelliting Not Reportable 01/11/18 14:54 Plt Morphology Comment Not Reportable 01/11/18 14:54 RBC Morphology Not Reportable 01/11/18 14:54 Dimorphic RBCs Not Reportable 01/11/18 14:54 Polychromasia Not Reportable 01/11/18 14:54 Hypochromasia Not Reportable 01/11/18 14:54 Poikilocytosis 1+ 01/11/18 14:54 Anisocytosis 1+ 01/11/18 14:54 Microcytosis Not Reportable 01/11/18 14:54 Macrocytosis Not Reportable 01/11/18 14:54 Spherocytes Not Reportable 01/11/18 14:54 Pappenheimer Bodies Not Reportable 01/11/18 14:54 Sickle Cells Not Reportable 01/11/18 14:54 Target Cells Not Reportable 01/11/18 14:54 Tear Drop Cells Not Reportable 01/11/18 14:54 Ovalocytes Not Reportable 01/11/18 14:54 Helmet Cells Not Reportable 01/11/18 14:54 Carpenter-[place] Bodies Not Reportable 01/11/18 14:54 [place]el Rings Not Reportable 01/11/18 14:54 [place] Cells Not Reportable 01/11/18 14:54 Bite Cells Not Reportable 01/11/18 14:54 Crenated Cell Not Reportable 01/11/18 14:54 Elliptocytes Not Reportable 01/11/18 14:54 Acanthocytes (Spur) Not Reportable 01/11/18 14:54 Rouleaux Not Reportable 01/11/18 14:54 Hemoglobin C Crystals Not Reportable 01/11/18 14:54 Schistocytes Not Reportable 01/11/18 14:54 Malaria parasites Not Reportable 01/11/18 14:54 Edil Bodies Not Reportable 01/11/18 14:54 Hem Pathologist Commnt No 01/11/18 14:54 PT 14.2 Sec. (12.2-14.9) 01/11/18 14:54 INR 1.05 (0.87-1.13) 01/11/18 14:54 D-Dimer > 61734 ng/mlDDU (0-234) H 01/11/18 14:54 Sodium 150 mmol/L (137-145) H 01/18/18 06:17 Potassium 4.8 mmol/L (3.6-5.0) 01/18/18 06:17 Chloride 112.2 mmol/L (98-107) H 01/18/18 06:17 Carbon Dioxide 25 mmol/L (22-30) 01/18/18 06:17 Anion Gap 18 mmol/L 01/18/18 06:17 BUN 23 mg/dL (7-17) H 01/18/18 06:17 Creatinine 0.8 mg/dL (0.7-1.2) 01/18/18 06:17 Estimated GFR > 60 ml/min 01/18/18 06:17 BUN/Creatinine Ratio 29 % 01/18/18 06:17 Glucose 109 mg/dL (65-100) H 01/18/18 06:17 POC Glucose 306 (70-105) H 01/17/18 21:24 Lactic Acid 1.50 mmol/L (0.7-2.0) 01/12/18 03:20 Calcium 9.9 mg/dL (8.4-10.2) 01/18/18 06:17 Phosphorus 3.40 mg/dL (2.5-4.5) 01/13/18 10:55 Magnesium 2.40 mg/dL (1.7-2.3) H 01/13/18 10:55 Iron 37 ug/dL (37-170) 01/16/18 17:43 TIBC 239 mcg/dL (250-450) L 01/16/18 17:43 Ferritin 511.5 ng/mL (13.0-400.0) H 01/16/18 17:43 Total Bilirubin 0.20 mg/dL (0.1-1.2) 01/16/18 06:04 AST 19 units/L (5-40) 01/16/18 06:04 ALT 9 units/L (7-56) 01/16/18 06:04 Alkaline Phosphatase 121 units/L (35-129) 01/16/18 06:04 Total Creatine Kinase 51 units/L (30-135) 01/11/18 14:54 CK-MB (CK-2) 2.2 ng/mL (0.0-4.0) 01/11/18 14:54 CK-MB (CK-2) Rel Index 4.3 (0-4) H 01/11/18 14:54 Troponin T 0.021 ng/mL (0.00-0.029) 01/11/18 14:54 NT-Pro-B Natriuret Pep 775.8 pg/mL (0-900) 01/11/18 14:55 Total Protein 6.7 g/dL (6.3-8.2) 01/16/18 06:04 Albumin 2.7 g/dL (3.9-5) L 01/16/18 06:04 Albumin/Globulin Ratio 0.7 % 01/16/18 06:04 Vitamin B12 475.5 pg/mL (211-911) 01/16/18 18:13 Folate 16.14 ng/mL (7.3-26.0) 01/16/18 18:13 Urine Color Red (Yellow) 01/11/18 13:50 Urine Turbidity Clear (Clear) 01/11/18 13:50 Urine pH 6.0 (5.0-7.0) 01/11/18 13:50 Ur Specific [place] 1.003 (1.003-1.030) 01/11/18 13:50 Urine Protein <15 mg/dl mg/dL (Negative) 01/11/18 13:50 Urine Glucose (UA) Neg mg/dL (Negative) 01/11/18 13:50 Urine Ketones Neg mg/dL (Negative) 01/11/18 13:50 Urine Blood Sm (Negative) 01/11/18 13:50 Urine Nitrite Neg (Negative) 01/11/18 13:50 Urine Bilirubin Neg (Negative) 01/11/18 13:50 Urine Urobilinogen < 2.0 mg/dL (<2.0) 01/11/18 13:50 Ur Leukocyte Esterase Sm (Negative) 01/11/18 13:50 Urine WBC (Auto) 3.0 /HPF (0.0-6.0) 01/11/18 13:50 Urine RBC (Auto) 1.0 /HPF (0.0-6.0) 01/11/18 13:50 U Epithel Cells (Auto) 1.0 /HPF (0-13.0) 01/11/18 13:50 Urine Bacteria (Auto) 1+ /HPF (Negative) 01/11/18 13:50 Urine Mucus Few /HPF 01/11/18 13:50 Lymph Enumerat CD4/CD8 0.36 (0.86-5.00) L 01/13/18 10:55 % CD3 Cells 62 % (57-85) 01/13/18 10:55 Absolute CD3 Count 362 cells/uL (840-3060) L 01/13/18 10:55 % CD4 Cells 17 % (30-61) L 01/13/18 10:55 Absolute CD4 Count 101 cells/uL (490-1740) L 01/13/18 10:55 % CD8 Cells 46 % (12-42) H 01/13/18 10:55 Absolute CD8 Count 276 cells/uL (180-1170) 01/13/18 10:55 % CD19 Cells 26 % (6-29) 01/13/18 10:55 Absolute CD19 Count 143 cells/uL (110-660) 01/13/18 10:55 HIV-1 RNA PCR copies/ml 98 Copies/mL H 01/13/18 10:55 HIV-1 RNA (PCR) log 1.99 Log cps/mL H 01/13/18 10:55 TB (QFT) Gold In Tube Negative (Negative) 01/13/18 09:44 TB Test (QFT) Nil 0.02 IU/mL 01/13/18 09:44 TB Test Mitogen - Nil 9.00 IU/mL 01/13/18 09:44 TB Test Antigen - Nil 0.02 IU/mL 01/13/18 09:44 Miscellaneous Test Flexitest 1 01/13/18 09:37
--- NOTE | 2018-01-19 09:56 | Hem/Onc Progress Note ---
Assessment and Plan records reviewed from [facility] poorly diff [facility] not a candidate for chemo rec hospice Subjective Date of service: 01/19/18 Interval history: Patient feels fair. weak. records reviewed Objective - Exam Narrative Exam: weak - Constitutional Vitals: Last Vital Signs Temp 97.8 F 01/19/18 07:31 Pulse 98 H 01/19/18 08:00 Resp 18 01/19/18 08:00 BP 128/80 01/19/18 07:31 Pulse Ox 97 01/19/18 08:02 - Neck Neck: supple - Respiratory Respiratory effort: Positive: normal - Cardiovascular Rhythm: regular Extremities: No edema - Gastrointestinal General gastrointestinal: Present: soft
[2018-01-19] MEDS: HALFPRIN EC PO SCH (10:45)
[2018-01-19] MEDS: NORVASC PO SCH (10:45)
[2018-01-19] MEDS: BACTRIM DS PO SCH (10:45)
[2018-01-19] MEDS: FOLVITE PO SCH (10:46)
[2018-01-19] MEDS: TIVICAY (NF) PO SCH (10:46)
[2018-01-19] MEDS: NON-FORMULARY (Emtricitabine/Tenofov Alafenam [Descovy 200-25 Mg Tablet] 1 EACH) PO SCH (10:46)
[2018-01-19] MEDS: D5W 1,000 ML IV SCH (10:47)
--- NOTE | 2018-01-19 13:28 | Progress Note ---
Assessment and Plan Acute hypoxic respiratory failure - due to metastatic lung cancer and CAP -cont nebs, supplemental O2 and abx - cont supportive care Metastatic lung cancer - cont Oxygen, nebulizers, pulmonary following - s/p Excisional biopsy of abdominal wall nodule 01/15 preliminary results show metastatic poorly differentiated carcinoma, pending immunostains to determine origin - oncology following and recommended hospice - discussed with POA and wants to transfer the pt to [facility], Discussed with customer retention representative [facility] attending Dr. Haq and did not accept the pt as she already has outpt follow up with Oncology History of HIV AIDS; recently diagnosed per [facility] record - probably end-stage, ID following Sepsis; secondary to pneumonia, community-acquired - Continue IV antibiotics, follow cultures Lactic acidosis - secondary to sepsis, resolved Cachexia/Severe protein malnutrition - [facility] consulted Hypernatremia - continue D5w for correction Bilateral hydronephrosis - Patient's kidney function is within normal limits, urology consulted, pt to f/ u OP Polysubstance abuse - h/o Crack cocaine, tobacco, patient counseled on cessation Suspected TB - Isolation cancelled as TB workup is negative Brief history: 62 yo F PMH HIV/AIDS, diagnosed in December 2017 at [facility], on HAART ( Tivicay and descovy), unknown CD4 and HIV-VL, HTN, malnutrition, tobacco and crack/cocaine use, lives off/on streets now at [facility], who presented to the ER on 01/10/18 c/o shortness of breath, nonproductive cough, decreased oral intake, weight loss, progressive weakness, as well as syncope with loss of consciousness the day of presentation to ER. Head CT was negative for acute findings. Chest x-ray showed diffuse bilateral reticulonodular pulmonary infiltrates, suspicious for a right hilar and suprahilar mass with metastases. CT of the chest showed pulmonary malignancy with bone disease and pathological mediastinal and hilar lymphadenopathy. Radiological studies: CXR CTA chest Abdomen/pelvis CT Hospitalist Physical exam: GENERAL: malnourished AAF lying on bed appeared to be in no discomfort. HEENT: Normocephalic. Atraumatic. No conjunctival congestion or icterus. Patient has moist mucous membranes. NECK: Supple. Trachea midline. CHEST/LUNGS: Coarse BS auscultated bilaterally, breathing nonlabored. HEART/CARDIOVASCULAR: Regular in rate and rhythm. S1 and S2 positive. ABDOMEN: Abdomen is soft, nontender. Patient has normal bowel sounds. SKIN: There is no rash. Warm and dry. NEURO: No focal motor deficit. Follows command. MUSCULOSKELETAL: No joint effusion or tenderness. EXTRIMITY: No edema, no cyanosis or clubbing. PSYCH: Cooperative. Subjective Date of service: 01/19/18 Principal diagnosis: Abnormal CT Chest; Lung Masses; HIV positive Interval history: Patient seen and examined. Medical records and medication list reviewed. No acute event overnight noted by the RN. Discussed plan of care at bedside with patient, Dr. Haq at [facility], patient POA Mrs. Garcia. Objective - Constitutional Vitals: Vital Signs - 12hr 01/19/18 01/19/18 01/19/18 04:23 07:31 08:00 Temperature 98.5 F 97.8 F Pulse Rate 100 H 89 Pulse Rate [ 96 H Anterior Bilateral Bases ] Pulse Rate [ 98 H Anterior Bilateral Throughout] Respiratory 18 24 Rate Respiratory 16 Rate [Anterior Bilateral Bases ] Respiratory 18 Rate [Anterior Bilateral Throughout] Blood Pressure 131/88 128/80 O2 Sat by Pulse 97 96 Oximetry 01/19/18 01/19/18 08:02 11:43 Temperature 98.8 F Pulse Rate 107 H Pulse Rate [ Anterior Bilateral Bases ] Pulse Rate [ Anterior Bilateral Throughout] Respiratory 24 Rate Respiratory Rate [Anterior Bilateral Bases ] Respiratory Rate [Anterior Bilateral Throughout] Blood Pressure 109/81 O2 Sat by Pulse 97 97 Oximetry - Labs CBC & Chem 7: 01/18/18 06:17 01/18/18 06:17
--- NOTE | 2018-01-19 15:29 | Progress Note ---
Assessment and Plan Assessment: 1) SIRS: better, still leukocytosis. Etio. ? malignancy 2) Pulmonary nodules and hilar, mediastinal lymphadenopathy, with metastatic disease to liver, bones, skin, muscular seen on CT C/A/P. Highly suggestive of malignancy. - Quantiferon TB negative - Aspergillus ag negative - Abdominal LN biopsy + adenocarcinoma. 3) Bilateral hydronephrosis (L>R). UA unremarkable 4) Recent diagnosis of HIV/AIDS at [facility]. On Descovy and Tivicay and OI prophylaxis with bactrim. - KF5=674 / VL=98 on 01/13/18 5) Cachexia/Severe protein caloric malnutrition. 6) Generalized lymphadenopathy - due to HIV +/- malignancy. - S/P Excisional biopsy of abdominal wall nodules 01/14/18 + presumed adenocarcinoma 7) Probable COPD 8) Syncope 9) Poly-substance abuse: crack/cocaine, tobacco. Recommendations: -recommend hospice -Continue HAART. -Continue PJP prophylaxis with bactrim and MAC prophylaxis with azithromycin -f/u Legionella ag, pneumococcal ag and Histoplasma urinary antigens -HIV clinic f/u with her regular provider I am signing off Very poor prognosis Griselda Lucio MD Infectious Diseases Specialist [facility] [phone] Subjective Date of service: 01/19/18 Principal diagnosis: Abnormal CT Chest; Lung Masses; HIV positive Interval history: Feels ok no complaints Micro: Blood cultures: 01/11 neg Cryptococcal ag serum 01/13 negative Current Antimicrobials: Ceftriaxone 01/11- Azithromycin 01/11- Bactrim 01/11- HAART: Descovy and Tivicay Previous Antimicrobials: Levaquin x1 01/11 Other meds: Solumedrol 01/11- Objective - Exam Narrative Exam: General appearance: Alert in NAD, conversant, cachectic. On NC. Eyes: anicteric sclerae, moist conjunctivae; PERRLA, EOMI. HENT: Atraumatic; oropharynx clear, with moist mucous membranes and no mucosal ulcerations/no oral thrush; normal hard and soft palate. Normal external ears. Neck: Supple Lungs: CTA, with normal respiratory effort and no intercostal retractions CV: S1,S2. RRR. Abdomen: +BS. Soft. +TTP diffusely. Palpable masses anterior abdominal wall. Extremities: No c/c/e. Skin: No rash, no open wounds. Lymph nodes: palpable LN, cervical, axillary, inguinal. Psych: Appropriate affect, alert and oriented to person, place and time. Neuro: alert and oriented x 3. Grossly non-focal Lines: No CVL / PICC - Constitutional Vitals: Vital Signs Temp Pulse Resp BP Pulse Ox 98.8 F 107 H 16 109/81 97 01/19/18 11:43 01/19/18 14:00 01/19/18 14:00 01/19/18 11:43 01/19/18 11:43 Temperature -Last 24 Hours Temperature 98.8 F Temperature 97.8 F Temperature 98.5 F Temperature 98.1 F Temperature 97.7 F Temperature 98.3 F - Labs CBC & Chem 7: 01/18/18 06:17 01/18/18 06:17
--- NOTE | 2018-01-19 21:11 | Progress Note ---
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 Patient is not a candidate for chemotherapy. Hospice recommended - continue supplemental oxygen as needed - continue VTE prophylaxis - continue bronchodilators - continue supplemental oxygen to keep O2 Sats > 90% - steroid taper - Substance abuse counselling done - Nicotine withdrawal precautions Subjective Date of service: 01/19/18 Principal diagnosis: Abnormal CT Chest; Lung Masses; HIV positive Interval history: Seen and examined. Vitals, labs, medications, chart reviewed Objective - Exam Narrative Exam: General appearance: Alert in NAD, conversant, cachectic. On NC. Eyes: anicteric sclerae, moist conjunctivae; PERRLA, EOMI. HENT: Atraumatic; oropharynx clear, with moist mucous membranes and no mucosal ulcerations/no oral thrush; normal hard and soft palate. Normal external ears. Neck: Supple Lungs: CTA, with normal respiratory effort and no intercostal retractions CV: S1,S2. RRR. Abdomen: +BS. Soft. +TTP diffusely. Palpable masses anterior abdominal wall. Extremities: No c/c/e. Skin: No rash, no open wounds. Lymph nodes: palpable LN, cervical, axillary, inguinal. Psych: Appropriate affect, alert and oriented to person, place and time. Neuro: alert and oriented x 3. Grossly non-focal Vital Signs - 12hr 01/19/18 01/19/18 01/19/18 10:00 11:43 14:00 Temperature 98.8 F Pulse Rate 107 H Pulse Rate [ 101 H Anterior Bilateral Bases ] Pulse Rate [ 107 H Anterior Bilateral Throughout] Respiratory 24 Rate Respiratory 16 Rate [Anterior Bilateral Bases ] Respiratory 16 Rate [Anterior Bilateral Throughout] Blood Pressure 109/81 O2 Sat by Pulse 98 97 Oximetry 01/19/18 01/19/18 20:14 20:15 Temperature Pulse Rate Pulse Rate [ 105 H Anterior Bilateral Bases ] Pulse Rate [ Anterior Bilateral Throughout] Respiratory Rate Respiratory 18 Rate [Anterior Bilateral Bases ] Respiratory Rate [Anterior Bilateral Throughout] Blood Pressure O2 Sat by Pulse 96 Oximetry Constitutional: no acute distress, alert, other (looks chronically ill) Eyes: non-icteric ENT: oropharynx moist, other (no thyromegaly) Neck: supple, lymphadenopathy, no JVD Effort: mildly labored Ascultation: Bilateral: diminished breath sounds, rales (scant in bases) Percussion: Bilateral: not dull Cardiovascular: regular rate and rhythm, other (no rubs or murmurs) Gastrointestinal: normoactive bowel sounds, soft, non-tender, non-distended, other (no palpable HSM) Integumentary: other (poor turgor; subQ nodules in anterior abdominal plane) Extremities: no cyanosis, no edema, pink and warm, pulses normal Neurologic: normal mental status, non-focal exam, pupils equal and round, CN II- XII normal Psychiatric: mood appropriate, affect normal CBC and BMP: 01/18/18 06:17 01/18/18 06:17 ABG, PT/INR, D-dimer: PT/INR, D-dimer PT 14.2 Sec. (12.2-14.9) 01/11/18 14:54 INR 1.05 (0.87-1.13) 01/11/18 14:54 D-Dimer > 66932 ng/mlDDU (0-234) H 01/11/18 14:54 Abnormal lab findings: Abnormal Labs 01/11/18 01/11/18 01/11/18 14:54 14:54 14:54 WBC 14.2 H RBC 5.35 H Hct 43.0 H MCV MCH 23 L MCHC 29 L RDW 17.9 H Plt Count Lymph % (Auto) [place] % (Auto) Lymph # [place] # Seg Neutrophils % Seg Neuts % (Manual) 74.0 H Lymphocytes % (Manual) 8.0 L Eosinophils % (Manual) 13.0 H Seg Neutrophils # Seg Neutrophils # Man 10.5 H Abs Lymphs (Manual) Lymphocytes # (Manual) 1.1 L Eosinophils # (Manual) 1.8 H D-Dimer > 73934 H Sodium Chloride Carbon Dioxide 20 L BUN Creatinine 0.5 L Glucose POC Glucose Lactic Acid Magnesium 2.60 H TIBC Ferritin CK-MB (CK-2) Rel Index 4.3 H Albumin 2.7 L Lymph Enumerat CD4/CD8 Absolute CD3 Count % CD4 Cells Absolute CD4 Count % CD8 Cells HIV-1 RNA PCR copies/ml HIV-1 RNA (PCR) log 01/11/18 01/11/18 01/11/18 15:19 20:49 21:42 WBC RBC Hct MCV MCH MCHC RDW Plt Count Lymph % (Auto) [place] % (Auto) Lymph # [place] # Seg Neutrophils % Seg Neuts % (Manual) Lymphocytes % (Manual) Eosinophils % (Manual) Seg Neutrophils # Seg Neutrophils # Man Abs Lymphs (Manual) Lymphocytes # (Manual) Eosinophils # (Manual) D-Dimer Sodium Chloride Carbon Dioxide BUN Creatinine Glucose POC Glucose Lactic Acid 3.20 H* 3.70 H* 4.00 H* Magnesium TIBC Ferritin CK-MB (CK-2) Rel Index Albumin Lymph Enumerat CD4/CD8 Absolute CD3 Count % CD4 Cells Absolute CD4 Count % CD8 Cells HIV-1 RNA PCR copies/ml HIV-1 RNA (PCR) log 01/13/18 01/13/18 01/13/18 10:55 10:55 10:55 WBC RBC Hct MCV MCH MCHC RDW Plt Count Lymph % (Auto) [place] % (Auto) Lymph # [place] # Seg Neutrophils % Seg Neuts % (Manual) Lymphocytes % (Manual) Eosinophils % (Manual) Seg Neutrophils # Seg Neutrophils # Man Abs Lymphs (Manual) 581 L Lymphocytes # (Manual) Eosinophils # (Manual) D-Dimer Sodium 154 H D Chloride 118.7 H Carbon Dioxide 20 L BUN Creatinine 0.5 L Glucose 208 H POC Glucose Lactic Acid Magnesium 2.40 H TIBC Ferritin CK-MB (CK-2) Rel Index Albumin Lymph Enumerat CD4/CD8 0.36 L Absolute CD3 Count 362 L % CD4 Cells 17 L Absolute CD4 Count 101 L % CD8 Cells 46 H HIV-1 RNA PCR copies/ml 98 H HIV-1 RNA (PCR) log 1.99 H 01/13/18 01/14/18 01/14/18 12:28 07:28 07:28 WBC 14.4 H 11.2 H RBC Hct MCV 77 L 76 L MCH 24 L 24 L MCHC RDW 16.6 H 16.5 H Plt Count 137 L Lymph % (Auto) 4.4 L [place] % (Auto) Lymph # 0.6 L [place] # 0.9 H Seg Neutrophils % 88.4 H Seg Neuts % (Manual) Lymphocytes % (Manual) Eosinophils % (Manual) Seg Neutrophils # 12.7 H Seg Neutrophils # Man Abs Lymphs (Manual) Lymphocytes # (Manual) Eosinophils # (Manual) D-Dimer Sodium 155 H Chloride 120.3 H Carbon Dioxide BUN Creatinine 0.4 L Glucose 111 H POC Glucose Lactic Acid Magnesium TIBC Ferritin CK-MB (CK-2) Rel Index Albumin Lymph Enumerat CD4/CD8 Absolute CD3 Count % CD4 Cells Absolute CD4 Count % CD8 Cells HIV-1 RNA PCR copies/ml HIV-1 RNA (PCR) log 01/15/18 01/15/18 01/16/18 08:05 08:05 06:04 WBC 11.2 H RBC Hct MCV 76 L 76 L MCH 24 L 24 L MCHC RDW 16.6 H 16.8 H Plt Count 115 L 110 L Lymph % (Auto) 6.5 L [place] % (Auto) 9.7 H Lymph # 0.7 L [place] # 1.1 H Seg Neutrophils % 83.2 H Seg Neuts % (Manual) Lymphocytes % (Manual) Eosinophils % (Manual) Seg Neutrophils # 9.3 H Seg Neutrophils # Man Abs Lymphs (Manual) Lymphocytes # (Manual) Eosinophils # (Manual) D-Dimer Sodium 149 H Chloride 113.4 H Carbon Dioxide BUN Creatinine 0.5 L Glucose 106 H POC Glucose Lactic Acid Magnesium TIBC Ferritin CK-MB (CK-2) Rel Index Albumin Lymph Enumerat CD4/CD8 Absolute CD3 Count % CD4 Cells Absolute CD4 Count % CD8 Cells HIV-1 RNA PCR copies/ml HIV-1 RNA (PCR) log 01/16/18 01/16/18 01/16/18 06:04 12:19 17:21 WBC RBC Hct MCV MCH MCHC RDW Plt Count Lymph % (Auto) [place] % (Auto) Lymph # [place] # Seg Neutrophils % Seg Neuts % (Manual) Lymphocytes % (Manual) Eosinophils % (Manual) Seg Neutrophils # Seg Neutrophils # Man Abs Lymphs (Manual) Lymphocytes # (Manual) Eosinophils # (Manual) D-Dimer Sodium 146 H Chloride 110.5 H Carbon Dioxide BUN 21 H Creatinine Glucose 112 H POC Glucose 145 H 232 H Lactic Acid Magnesium TIBC Ferritin CK-MB (CK-2) Rel Index Albumin 2.7 L Lymph Enumerat CD4/CD8 Absolute CD3 Count % CD4 Cells Absolute CD4 Count % CD8 Cells HIV-1 RNA PCR copies/ml HIV-1 RNA (PCR) log 01/16/18 01/16/18 01/16/18 17:43 17:43 21:25 WBC RBC Hct MCV MCH MCHC RDW Plt Count Lymph % (Auto) [place] % (Auto) Lymph # [place] # Seg Neutrophils % Seg Neuts % (Manual) Lymphocytes % (Manual) Eosinophils % (Manual) Seg Neutrophils # Seg Neutrophils # Man Abs Lymphs (Manual) Lymphocytes # (Manual) Eosinophils # (Manual) D-Dimer Sodium Chloride Carbon Dioxide BUN Creatinine Glucose POC Glucose 253 H Lactic Acid Magnesium TIBC 239 L Ferritin 511.5 H CK-MB (CK-2) Rel Index Albumin Lymph Enumerat CD4/CD8 Absolute CD3 Count % CD4 Cells Absolute CD4 Count % CD8 Cells HIV-1 RNA PCR copies/ml HIV-1 RNA (PCR) log 01/17/18 01/17/18 01/17/18 06:07 06:07 06:22 WBC 12.0 H RBC Hct MCV 78 L MCH 24 L MCHC RDW 17.0 H Plt Count 122 L Lymph % (Auto) 5.8 L [place] % (Auto) Lymph # 0.7 L [place] # Seg Neutrophils % 88.5 H Seg Neuts % (Manual) Lymphocytes % (Manual) Eosinophils % (Manual) Seg Neutrophils # 10.6 H Seg Neutrophils # Man Abs Lymphs (Manual) Lymphocytes # (Manual) Eosinophils # (Manual) D-Dimer Sodium 146 H Chloride 110.9 H Carbon Dioxide BUN 19 H Creatinine Glucose 109 H POC Glucose 170 H Lactic Acid Magnesium TIBC Ferritin CK-MB (CK-2) Rel Index Albumin Lymph Enumerat CD4/CD8 Absolute CD3 Count % CD4 Cells Absolute CD4 Count % CD8 Cells HIV-1 RNA PCR copies/ml HIV-1 RNA (PCR) log 01/17/18 01/17/18 01/17/18 11:25 15:25 21:24 WBC RBC Hct MCV MCH MCHC RDW Plt Count Lymph % (Auto) [place] % (Auto) Lymph # [place] # Seg Neutrophils % Seg Neuts % (Manual) Lymphocytes % (Manual) Eosinophils % (Manual) Seg Neutrophils # Seg Neutrophils # Man Abs Lymphs (Manual) Lymphocytes # (Manual) Eosinophils # (Manual) D-Dimer Sodium Chloride Carbon Dioxide BUN Creatinine Glucose POC Glucose 125 H 126 H 306 H Lactic Acid Magnesium TIBC Ferritin CK-MB (CK-2) Rel Index Albumin Lymph Enumerat CD4/CD8 Absolute CD3 Count % CD4 Cells Absolute CD4 Count % CD8 Cells HIV-1 RNA PCR copies/ml HIV-1 RNA (PCR) log 01/18/18 01/18/18 06:17 06:17 WBC RBC Hct MCV 76 L MCH 24 L MCHC RDW 16.9 H Plt Count 133 L Lymph % (Auto) 5.7 L [place] % (Auto) 8.6 H Lymph # 0.6 L [place] # 0.9 H Seg Neutrophils % 85.2 H Seg Neuts % (Manual) Lymphocytes % (Manual) Eosinophils % (Manual) Seg Neutrophils # 9.1 H Seg Neutrophils # Man Abs Lymphs (Manual) Lymphocytes # (Manual) Eosinophils # (Manual) D-Dimer Sodium 150 H Chloride 112.2 H Carbon Dioxide BUN 23 H Creatinine Glucose 109 H POC Glucose Lactic Acid Magnesium TIBC Ferritin CK-MB (CK-2) Rel Index Albumin Lymph Enumerat CD4/CD8 Absolute CD3 Count % CD4 Cells Absolute CD4 Count % CD8 Cells HIV-1 RNA PCR copies/ml HIV-1 RNA (PCR) log
[2018-01-20] MEDS: SODIUM CHLORIDE FLUSH SYRINGE 10 ML IV SCH ×4 (00:50→22:51)
[2018-01-20] MEDS: NORCO 5/325 PO PRN ×4 (04:34→22:49)
[2018-01-20] MEDS: D5W 1,000 ML IV SCH ×2 (06:35→17:23)
[2018-01-20] MEDS: DUONEB *Not for PRN Use IH SCH ×3 (09:07→20:23)
--- NOTE | 2018-01-20 09:39 | Hem/Onc Progress Note ---
Assessment and Plan records reviewed from [facility] poorly diff grant not a candidate for chemo rec hospice Subjective Date of service: 01/20/18 Interval history: Patient feels fair. weak. records reviewed Objective - Constitutional Vitals: Last Vital Signs Temp 97.4 F L 01/20/18 07:32 Pulse 98 H 01/20/18 07:31 Resp 20 01/20/18 08:41 BP 120/74 01/20/18 07:31 Pulse Ox 97 01/20/18 07:31 Performance status: 4-completely disabled - Neck Neck: supple - Respiratory Respiratory: bilateral: diminished - Cardiovascular Rhythm: regular - Gastrointestinal General gastrointestinal: Present: soft (multiple nodules on the abdomen)
[2018-01-20] MEDS: NON-FORMULARY (Emtricitabine/Tenofov Alafenam [Descovy 200-25 Mg Tablet] 1 EACH) PO SCH (10:00)
[2018-01-20] MEDS: TIVICAY (NF) PO SCH (10:00)
[2018-01-20] MEDS: HALFPRIN EC PO SCH (11:25)
[2018-01-20] MEDS: NORVASC PO SCH (11:25)
[2018-01-20] MEDS: BACTRIM DS PO SCH (11:25)
[2018-01-20] MEDS: FOLVITE PO SCH (11:25)
--- NOTE | 2018-01-20 13:53 | Discharge Summary ---
Providers - Providers Date of Admission: 01/11/18 15:40 Date of discharge: 01/20/18 Attending physician: HANNAH RUELAS 01/12/18 08:44 Consult to Physician [CONS] Routine Comment: Consulting Provider: CURT RIVERA Physician Instructions: Reason For Exam: Metastatic lung cancer 01/12/18 18:31 Consult to Physician [CONS] Routine Comment: Consulting Provider: SLY AYALA Physician Instructions: Reason For Exam: HIV/AIDS, wasting syndrome 01/13/18 07:00 Consult to Physician [CONS] Routine Comment: Consulting Provider: KIERA LAU Physician Instructions: Reason For Exam: metastatic lung cancer on CT 01/13/18 13:59 Consult to Physician [CONS] Routine Comment: Consulting Provider: SALOMÓN PEOPLES Physician Instructions: Reason For Exam: excisional bx subcu nodules 01/14/18 16:03 Consult to Physician [CONS] Routine Comment: Consulting Provider: SHANDRA GUTIERREZ Physician Instructions: Reason For Exam: bilateral hydronephrosis 01/19/18 13:03 Consult to Wound/ET Nurse [CONS] Routine Reason For Exam: wound eval Primary care physician: PYROMETER MECHANIC Hospitalization Condition: Stable Hospital course: Brief history: 62 yo F PMH HIV/AIDS, diagnosed in December 2017 at [facility], on HAART ( Tivicay and descovy), unknown CD4 and HIV-VL, HTN, malnutrition, tobacco and crack/cocaine use, lives off/on streets now [facility], who presented to the ER on 01/10/18 c/o shortness of breath, nonproductive cough, decreased oral intake, weight loss, progressive weakness, as well as syncope with loss of consciousness the day of presentation to ER. Head CT was negative for acute findings. Chest x-ray showed diffuse bilateral reticulonodular pulmonary infiltrates, suspicious for a right hilar and suprahilar mass with metastases. CT of the chest showed pulmonary malignancy with bone disease and pathological mediastinal and hilar lymphadenopathy. Patient had generalized lymphadenopathy and undergone Excisional biopsy of abdominal wall nodule 01/15 preliminary results show metastatic poorly differentiated carcinoma, pending immunostains to determine origin. Oncology was consulted and recommended hospice for the patient. Further discussion with the POA revealed that patient was recently admitted to the [facility] and was diagnosed with poorly differentiated adenocarcinoma and had similar workup done just about 2 weeks ago which patient did not inform. Patient is a homeless person and was placed on a half way home prior to discharge from [facility]. Patient already has outpatient follow-up set up on January 22. According to POA patient's living situation is not compatible to follow outpatient at [facility] and also her breathing condition deteriorated. I thoroughly Discussed with cooler conveyor loader [facility] attending Dr. Haq and did not accept the pt as she already has outpt follow up with Oncology. Patient also noted to have hypernatremia and placed on hypotonic fluids but she refused to have any further lab workup. Per oncology recommendation patient will be discharged personal usp with hospice, patient will follow-up at [facility] oncology clinic for further palliative chemotherapy/radiation therapy option. Discharge diagnosis: Metastatic lung cancer - s/p Excisional biopsy of abdominal wall nodule 01/15 preliminary results show metastatic poorly differentiated carcinoma, pending immunostains to determine origin - oncology was consulted and recommended hospice - discussed with POA and wanted to transfer the pt to [facility], Discussed with cooler conveyor loader [facility] attending Dr. Haq and did not accept the pt as she already has outpt follow up with Oncology - Per oncology recommendation patient will be discharged home with hospice, patient will follow-up at oncology clinic for further palliative chemotherapy/ radiation therapy option Acute hypoxic respiratory failure - due to metastatic lung cancer and CAP -managed with nebs, supplemental O2 and abx - cont supportive care History of HIV AIDS; recently diagnosed per [place] record - probably end-stage, patient follow-up at IDP clinic at [facility] Sepsis; secondary to pneumonia, community-acquired -Placed on IV antibiotics, negative cultures - We'll complete total of 7 days of antibiotic course following discharge Lactic acidosis - secondary to sepsis, resolved Cachexia/Severe protein malnutrition - [facility] consulted and recommended nutrition boost Hypernatremia -Placed on D5w for correction, patient refused further lab workup Bilateral hydronephrosis - Patient's kidney function is within normal limits, urology consulted, pt to f/ u OP Polysubstance abuse - h/o Crack cocaine, tobacco, patient counseled on cessation Suspected TB - Isolation cancelled as TB workup is negative Radiological studies: CXR CTA chest Abdomen/pelvis CT Hospitalist Physical exam: GENERAL: malnourished AAF lying on bed appeared to be in no discomfort. HEENT: Normocephalic. Atraumatic. No conjunctival congestion or icterus. Patient has moist mucous membranes. NECK: Supple. Trachea midline. CHEST/LUNGS: Coarse BS auscultated bilaterally, breathing nonlabored. HEART/CARDIOVASCULAR: Regular in rate and rhythm. S1 and S2 positive. ABDOMEN: Abdomen is soft, nontender. Patient has normal bowel sounds. SKIN: There is no rash. Warm and dry. NEURO: No focal motor deficit. Follows command. MUSCULOSKELETAL: No joint effusion or tenderness. EXTRIMITY: No edema, no cyanosis or clubbing. PSYCH: Cooperative. Disposition: DC-50 TO HOSPICE (HOME) Time spent for discharge: 32 minutes Core Measure Documentation - Palliative Care Palliative Care/ Comfort Measures: Hospice Care - Core Measures Any of the following diagnoses?: none Exam - Constitutional Vitals: Temp Pulse Resp BP Pulse Ox 97.9 F 97 H 16 111/72 98 01/20/18 12:01 01/20/18 12:02 01/20/18 12:02 01/20/18 12:01 01/20/18 12:02 Plan Activity: other (bedrest) Weight Bearing Status: Non-Weight Bearing Diet: regular (nutrition boost per dietary recommendation) Special Instructions: home hospice Durable Medical Equipment Needed Upon Discharge: Oxygen Follow up with: PRIMARY CARE, [Primary Care Provider] - 3-5 Days Prescriptions: ALBUTEROL NEB's [Proventil 0.083% NEBS] 2.5 mg IH Q4HRT PRN 14 Days nebu PRN Reason: Shortness Of Breath Azithromycin [Zithromax TAB] 1,200 mg PO [place] #14 tablet HYDROcodone/APAP 5-325 [[place] 5-325 mg TAB] 1 each PO Q4H PRN #20 tablet PRN Reason: Pain, Moderate (4-6) predniSONE [Deltasone] 50 mg PO QDAY #7 tab
[2018-01-20] MEDS ORDERED: D5W 1,000 ML IV SCH (21:00)
--- NOTE | 2018-01-20 21:37 | Progress Note ---
Assessment and Plan Acute hypoxic respiratory failure - due to metastatic lung cancer and CAP -cont nebs, supplemental O2 and abx - cont supportive care Metastatic lung cancer - cont Oxygen, nebulizers, pulmonary following - s/p Excisional biopsy of abdominal wall nodule 01/15 preliminary results show metastatic poorly differentiated carcinoma, pending immunostains to determine origin - oncology following and recommended hospice - discussed with POA and wants to transfer the pt to [place], Discussed with chemicals fermentation operator [place] attending Dr. Haq and did not accept the pt as she already has outpt follow up with Oncology - plan to d/c pt with hospice History of HIV AIDS; recently diagnosed per [facility] record - probably end-stage, ID following Sepsis; secondary to pneumonia, community-acquired - Continue IV antibiotics, follow cultures Lactic acidosis - secondary to sepsis, resolved Cachexia/Severe protein malnutrition - Paraeducator consulted Hypernatremia - continue D5w for correction, refusing further lab Bilateral hydronephrosis - Patient's kidney function is within normal limits, urology consulted, pt to f/ u OP Polysubstance abuse - h/o Crack cocaine, tobacco, patient counseled on cessation Suspected TB - Isolation cancelled as TB workup is negative Disposition: hospice Brief history: 62 yo F PMH HIV/AIDS, diagnosed in December 2017 at [facility], on HAART ( [place] and descovy), unknown CD4 and HIV-VL, HTN, malnutrition, tobacco and crack/cocaine use, lives off/on streets now at [facility], who presented to the ER on 01/10/18 c/o shortness of breath, nonproductive cough, decreased oral intake, weight loss, progressive weakness, as well as syncope with loss of consciousness the day of presentation to ER. Head CT was negative for acute findings. Chest x-ray showed diffuse bilateral reticulonodular pulmonary infiltrates, suspicious for a right hilar and suprahilar mass with metastases. CT of the chest showed pulmonary malignancy with bone disease and pathological mediastinal and hilar lymphadenopathy. Radiological studies: CXR CTA chest Abdomen/pelvis CT Hospitalist Physical exam: GENERAL: malnourished AAF lying on bed appeared to be in no discomfort. HEENT: Normocephalic. Atraumatic. No conjunctival congestion or icterus. Patient has moist mucous membranes. NECK: Supple. Trachea midline. CHEST/LUNGS: Coarse BS auscultated bilaterally, breathing nonlabored. HEART/CARDIOVASCULAR: Regular in rate and rhythm. S1 and S2 positive. ABDOMEN: Abdomen is soft, nontender. Patient has normal bowel sounds. SKIN: There is no rash. Warm and dry. NEURO: No focal motor deficit. Follows command. MUSCULOSKELETAL: No joint effusion or tenderness. EXTRIMITY: No edema, no cyanosis or clubbing. PSYCH: Cooperative. Subjective Date of service: 01/20/18 Principal diagnosis: Abnormal CT Chest; Lung Masses; HIV positive Interval history: Patient seen and examined. Medical records and medication list reviewed. No acute event overnight noted by the RN. Discussed plan of care at bedside with patient, refusing further lab. Objective - Constitutional Vitals: Vital Signs - 12hr 01/20/18 01/20/18 01/20/18 10:00 12:01 12:02 Temperature 97.9 F Pulse Rate 97 H Pulse Rate [ Anterior Bilateral Bases ] Pulse Rate [ Anterior Bilateral Throughout] Respiratory 20 16 16 Rate Respiratory Rate [Anterior Bilateral Bases ] Respiratory Rate [Anterior Bilateral Throughout] Blood Pressure 111/72 O2 Sat by Pulse 98 Oximetry 01/20/18 01/20/18 01/20/18 14:50 15:00 15:27 Temperature 97.8 F Pulse Rate Pulse Rate [ Anterior Bilateral Bases ] Pulse Rate [ 96 H 92 H Anterior Bilateral Throughout] Respiratory 18 Rate Respiratory Rate [Anterior Bilateral Bases ] Respiratory 16 16 Rate [Anterior Bilateral Throughout] Blood Pressure 111/80 O2 Sat by Pulse Oximetry 01/20/18 01/20/18 01/20/18 15:28 17:24 19:31 Temperature 97.8 F 97.3 F L Pulse Rate 101 H 100 H Pulse Rate [ Anterior Bilateral Bases ] Pulse Rate [ Anterior Bilateral Throughout] Respiratory 18 20 18 Rate Respiratory Rate [Anterior Bilateral Bases ] Respiratory Rate [Anterior Bilateral Throughout] Blood Pressure 107/68 O2 Sat by Pulse 96 95 Oximetry 01/20/18 01/20/18 01/20/18 20:24 20:25 20:40 Temperature Pulse Rate Pulse Rate [ 104 H 102 H Anterior Bilateral Bases ] Pulse Rate [ Anterior Bilateral Throughout] Respiratory Rate Respiratory 18 18 Rate [Anterior Bilateral Bases ] Respiratory Rate [Anterior Bilateral Throughout] Blood Pressure O2 Sat by Pulse 96 Oximetry - Labs CBC & Chem 7: 01/18/18 06:17 01/18/18 06:17
[2018-01-21] MEDS: NORCO 5/325 PO PRN ×3 (03:19→13:54)
[2018-01-21] MEDS: SODIUM CHLORIDE FLUSH SYRINGE 10 ML IV PRN (06:24)
[2018-01-21 06:33] LABS: Hemolysis Index 337
[2018-01-21 07:08] LABS: BUN/Creatinine Ratio TNR; Blood Urea Nitrogen TNR mg/dL (7-17); Calcium TNR mg/dL (8.4-10.2)
[2018-01-21] MEDS: DUONEB *Not for PRN Use IH SCH ×2 (08:38→15:23)
--- NOTE | 2018-01-21 09:29 | Hem/Onc Progress Note ---
Assessment and Plan path poorly diff malig not a candidate for chemo rec hospice- pt ageeable Subjective Date of service: 01/21/18 Interval history: Patient feels fair. weak. records reviewed. agreeable to hospice Objective - Constitutional Vitals: Last Vital Signs Temp 98.2 F 01/21/18 07:37 Pulse 96 H 01/21/18 09:05 Resp 18 01/21/18 09:05 BP 135/93 01/21/18 07:37 Pulse Ox 97 01/21/18 09:04 General appearance: no acute distress Performance status: 4-completely disabled - Neck Neck: supple - Respiratory Respiratory effort: Positive: normal Respiratory: bilateral: diminished - Cardiovascular Rhythm: regular - Gastrointestinal General gastrointestinal: Present: soft - Labs Lab Results: Laboratory Results - last 24 hr 01/21/18 05:40 Sodium TNR Potassium TNR Chloride TNR Carbon Dioxide TNR Anion Gap TNR BUN TNR Creatinine TNR Estimated GFR TNR BUN/Creatinine Ratio TNR Glucose TNR Calcium TNR
[2018-01-21] MEDS: NORVASC PO SCH (10:59)
[2018-01-21] MEDS: SODIUM CHLORIDE FLUSH SYRINGE 10 ML IV SCH (11:38)
[2018-01-21] MEDS: NON-FORMULARY (Emtricitabine/Tenofov Alafenam [Descovy 200-25 Mg Tablet] 1 EACH) PO SCH (11:39)
[2018-01-21] MEDS: TIVICAY (NF) PO SCH (11:39)
[2018-01-21] MEDS: ZOFRAN IV PRN (11:39)
[2018-01-21] MEDS: HALFPRIN EC PO SCH (11:39)
[2018-01-21] MEDS: FOLVITE PO SCH (11:40)
[2018-01-21] MEDS: BACTRIM DS PO SCH (11:40)
[2018-01-21 15:36] VITALS: BP 128/86
[2018-01-24] MEDS ORDERED: ZITHROMAX PO SCH (10:00)
== END 2018-01-21 16:32 | disposition hospice, home (50) | DRG 974 ==
LOC: ED 13:12 → 3A 15:40
PROVIDERS: ADMIT Internal Medicine; ATTEND Internal Medicine
PROC: 0WBFXZX Excision of Abdominal Wall, External Approach, Diagnostic (ICD-10-PCS; principal; 2018-01-15)
DX: A41.9 Sepsis, unspecified organism (principal); B20 Human immunodeficiency virus [HIV] disease; J96.01 Acute respiratory failure with hypoxia; J18.9 Pneumonia, unspecified organism; E43 Unspecified severe protein-calorie malnutrition; Z68.1 Body mass index [BMI] 19.9 or less, adult; C34.90 Malignant neoplasm of unspecified part of unspecified bronchus or lung; E87.0 Hyperosmolality and hypernatremia; N13.30 Unspecified hydronephrosis; C79.51 Secondary malignant neoplasm of bone; J44.1 Chronic obstructive pulmonary disease with (acute) exacerbation; J44.0 Chronic obstructive pulmonary disease with (acute) lower respiratory infection; F19.10 Other psychoactive substance abuse, uncomplicated; R59.1 Generalized enlarged lymph nodes; R55 Syncope and collapse; F14.10 Cocaine abuse, uncomplicated; F17.200 Nicotine dependence, unspecified, uncomplicated; R91.1 Solitary pulmonary nodule; R59.0 Localized enlarged lymph nodes; D69.6 Thrombocytopenia, unspecified; D64.9 Anemia, unspecified; Z71.6 Tobacco abuse counseling; Z79.82 Long term (current) use of aspirin; Z79.899 Other long term (current) drug therapy
CPT/HCPCS: 36415; 70450; 71045; 71275; 74178; 80048; 80053; 81001; 82024; 82140; 82164; 82550; 82553; 82607; 82728; 82747; 82962; 83550; 83735; 83880; 84100; 84484; 85007; 85025; 85027; 85379; 85610; 86403; 87040; 87536; 88305; 88307; 88341; 88342; 93005; 93010; 94640; 94760; 96365; 96375; 99406; A9270-GY; J0456; J0696; J1956; J2405; J2920; J7030; J7050; J7070; J7120; Q9967